=== PATIENT | female | born 1980 | race Caucasian/White ===

== ENCOUNTER 2017-10-20 10:30 | Emergency (ER) | payer OTHER ==
[2017-10-20] MEDS ORDERED: predniSONE TAB* 20 MG PO ONE (10:43)
[2017-10-20] MEDS ORDERED: Albuterol/Ipratropium NEB.SOL* Albuterol 2.5 MG/Ipratropium 0.5 MG 3 ML INH ONE (10:43)
--- OUTSIDE RECORDS SUMMARY | 2017-10-20 10:46 | XMS REPORT ---
:1980 Author Organization Martina Keane MD Care Team Providers Name Role Phone Curly Larissa , [phone] Unavailable Allergies, Adverse Reactions, Alerts metformin Reaction: diarrhea/GI upset 03/02/2017 Bactrim DS Reaction: facial swelling 03/02/2017 Medications Continue:Larissa Rawls MDatorvastatin 20 mg tablet, Take 1 tablet orally Every day 05/20/2017FreeStyle Lite Strips, Administer 1 strip twice a day or as directed SIMS 05/20/17 05/25/2017glimepiride 4 mg tablet, Take 2 tablet orally Every morning 06/02/2017doxycycline hyclate 100 mg capsule, Take 1 capsules orally twice a day for 10 days 06/02/2017FreeStyle Lancets 28 gauge, Take 1 each two times a day or as directed 06/02/2017omeprazole 40 mg capsule,delayed release , Take 1 capsule orally Every day 07/08/2017alogliptin 25 mg tablet, Take 1 tablet orally Every day 07/08/2017hydrOXYzine pamoate 50 mg capsule, Take 1 capsule orally Every 4 hours as needed, Correct dose 50mg NOT 100mg as just sent 07/11/2017mupirocin 2 % topical ointment, Apply 1/2 gram topically twice a day to affected area as needed 07/14/2017valACYclovir 1 gram tablet, Take 1 tablet orally Every day 08/22/2017Discontinued:Larissa Rawls MDhydrOXYzine HCl 50 mg tablet 07/11/2017hydrOXYzine pamoate 100 mg capsule 07/11/2017metFORMIN ER 1 ,000 mg tablet,extended release 24hr 07/20/2017metFORMIN ER 500 mg tablet, extended release 24 hr 08/22/2017Pre-existing:Diflucan 150 mg tablet, Take 1 tablet orally weekly per PP Problems Encounter for general adult medical examination with abnormal findings (Z00.01) 03/02/2017 Type 2 diabetes mellitus without complications (E11.9) 03/02/2017 Nicotine dependence, cigarettes, uncomplicated (F17.210) 03/02/2017 Low back pain (M54.5) 03/02/2017 Gastro-esophageal reflux disease without esophagitis (K21.9) 03/02/2017 Bipolar disorder, unspecified (F31.9) 03/02/2017 Anxiety disorder, unspecified (F41.9) 03/02/2017 Other obesity due to excess calories (E66.09) 03/02/2017 Insomnia, unspecified (G47.00) 03/02/2017 Personal history of Methicillin resistant Staphylococcus aureus infection ( Z86.14) 03/02/2017 Alcohol abuse with intoxication, uncomplicated (F10.120) 03/02/2017 Furuncle of head [any part, except face] (L02.821) 05/20/2017 Encounter for immunization (Z23) 07/14/2017 Furuncle of other sites (L02.828) 07/14/2017 Disorder of breast, unspecified (N64.9) 07/14/2017 Resolved: Anal abscess (K61.0) 08/22/2017 Results Advanced Directives: Patient does not wish to complete 03/02/2017 HIV Testing: Offered 03/02/2017 Hepatitis C Testing: Not Indicated due to age 503/02/2017 SODIUM: 134 MMOL/L 05/20/2017 Potassium: 4.6 MMOL/L 05/20/2017 CHLORIDE: 98 MMOL/L 05/20/2017 CO2 Carbon Dioxide: 25 MMOL/L 05/20/2017 Anion Gap: 11 MMOL/L 05/20/2017 Glucose: 433 MG/DL 05/20/2017 Blood Urea Nitrogen: 9 MG/DL 05/20/2017 Creatinine: 0.75 MG/DL 05/20/2017 BUN/CREATININE RATIO: 12 05/20/2017 CALCIUM: 9.6 MG/DL 05/20/2017 eGFR NON-: 87 05/20/2017 eGFR : 111.8 05/20/2017 Triglycerides: 218 MG/DL 05/20/2017 Cholesterol: 158 MG/DL 05/20/2017 HDL Cholesterol: 27.5 MG/DL 05/20/2017 LDL Cholesterol: 87 MG/DL 05/20/2017 Hemoglobin A1C: 11 % 05/20/2017 SODIUM: 136 MMOL/L 06/02/2017 Potassium: 3.6 MMOL/L 06/02/2017 CHLORIDE: 102 MMOL/L 06/02/2017 CO2 Carbon Dioxide: 26 MMOL/L 06/02/2017 Anion Gap: 8 MMOL/L 06/02/2017 Glucose: 286 MG/DL 06/02/2017 Blood Urea Nitrogen: 4 MG/DL 06/02/2017 Creatinine: 0.65 MG/DL 06/02/2017 BUN/CREATININE RATIO: 6.2 06/02/2017 CALCIUM: 8.8 MG/DL 06/02/2017 eGFR NON-: 102.6 06/02/2017 eGFR : 131.9 06/02/2017 C Reactive Protein: 27.74 MG/L 06/02/2017 Message Time: 07/15/2017 1:49pm 07/15/2017 Response Time: 07/15/2017 0330pm 07/15/2017 Message Time: 07/26/2017 5pm 07/26/2017 SODIUM: 135 MMOL/L 08/17/2017 Potassium: 4.3 MMOL/L 08/17/2017 CHLORIDE: 102 MMOL/L 08/17/2017 CO2 Carbon Dioxide: 28 MMOL/L 08/17/2017 Anion Gap: 5 MMOL/L 08/17/2017 Glucose: 228 MG/DL 08/17/2017 Blood Urea Nitrogen: 9 MG/DL 08/17/2017 Creatinine: 0.66 MG/DL 08/17/2017 BUN/CREATININE RATIO: 13.6 08/17/2017 CALCIUM: 8.8 MG/DL 08/17/2017 Total Protein: 6.4 G/DL 08/17/2017 Albumin: 3.8 G/DL 08/17/2017 Globulin: 2.6 G/DL 08/17/2017 Albumin/Globulin Ratio: 1.5 08/17/2017 Total Bilirubin: 0.5 MG/DL 08/17/2017 ALKALINE PHOSPHATASE: 100 U/L 08/17/2017 ALT: 28 U/L 08/17/2017 AST: 9 U/L 08/17/2017 eGFR NON-: 100.8 08/17/2017 eGFR : 129.6 08/17/2017 Hemoglobin A1C: 9.7 % 08/17/2017 Chief Complaint/Reason for Visit Follow up depression perineal abscess, diabetes breast lesions follow up feeling goodwants talk about a1c doing ok Procedures Performed and Ordered Today Current Medications Documented 03/02/2017OV, Est Pat L3 04/08/2017Current Medications Documented 04/08/2017 other unhealthy behavior 04/08/2017s no current behavior issues 04/08/2017Ha communication needs, ie cognitive, hearing or vision issue 04/08/2017OV, Est Pat L3 05/20/2017Venipuncture BMP,LIPID,HA1C 05/20Current Medications Documented 05/20/2017No Unhealthy Behavior, except smoking and/or sedentary 05/20/2017 behavior issues 05/20/2017 communication needs, ie cognitive, hearing or vision issue 05/20/2017Influenza, p -free 0.5 (>=3 yrs) (PFF) 08/08/2010OV, Est Pat L4 06/02/2017Venipuncture CRP, BMP 06/02/2017Current Medications Documented 06/02/2017Diabetic Foot Exam other unhealthy behavior 06/02/2017s behavior issues 06/02/2017Has communication needs, ie cognitive, hearing or vision issue 06/02/2017Current Medications Documented 06/14/2017s other unhealthy behavior 06/14/2017s behavior issues 06/14/2017s communication needs, ie cognitive, hearing or vision issue 06/14/2017OV, Est Pat L3 07/14/2017Current Medications Documented Has other unhealthy behavior 07/14/2017Has behavior issues 07/14/2017No communication needs 07/14/2017Venipuncture HA1C, CMP 08/17/2017OV, Est Pat L3 Current Medications Documented 08/22/2017s other unhealthy behavior Has behavior issues 08/22/2017No communication needs 08/22/2017Eye Exam Myopia, bilateral; reg astigmatism bilat; 06/21/2017OV, Est Pat L3 09/27/2017Current Medications Documented 09/27/2017Has behavior issues 2016No communication needs 09/27/2017No Unhealthy Behavior, except smoking or sedentary 09/27/2017PE Age 18-39 New pt 03/02/2017OV, Est Pat L3 06/14/2017 Lab: PAP Negative for lesion or malignancy, HPV negative; PPH 08/04/2015 *CBC - CBC w/electronic differential 06/02/2017 Test: Diabetic eye exam Pt declined diabetic exam,will f/u later this year 06/21/2017 Pneumovax 07/14/2017 Immunization: Fluzone Quadrivalent 3 yrs and older Rec'd at [facility] 07/14/2017 Influenza 0.5 (>=3 Yrs) [facility] 07/09/2017 Vital signs Temp: Pulse: Resp: BP: Ht: Wt: BMI: Pain: 98.1F 68/Min 20/Min 150/88 5ft, 4in 210lbs 33.974 06/0909/27/2017 09/27/2017 09/27/2017 mmHg 07/14/2017 07/14/2017201609/27/2017 7 Immunizations Fluzone Quadrivalent 3 yrs and older 07/14/2017 Pneumovax 07/14/2017 Influenza 0.5 (>=3 Yrs) 07/09/2017 Immunization Pneumococcal 07/14/2017 Smoking Status: Current every day smoker. Reason for Referral [facility], [address] [place] [id number] folliculitis/Breast Lesions Functional Status Plan of Treatment Appointments Thursday, March 02, 2017, Scheduled: 2:00 PM, Sarahi Pinzon NP Saturday, April 08, 2017, 1:00 PM, Larissa Rawls MD Saturday, May 20, 2017, 1:00 PM, Larissa Rawls MD May, 1:30 PM, Larissa Rawls MD Wednesday, June 14, 2017, 2:30 PM, Sarahi Pinzon NP July, 3:00 PM, Larissa Rawls MD Thursday, August 17, 2017, 3:00 PM, Tuesday, August 22, 2017, 1:00 PM, Larissa Rawls MD Wednesday, September 27, 2017, 1:30 PM, Larissa Rawls MD Tuesday, November 14, 2017, 2:30 PM, October, 2:30 PM, Larissa Rawls MD Payers Insurance Policy Type Policy ID Relation Subscriber Expiration [facility] [id number] Self Melissa Palmer Medicaid Health Plan Program [facility] [id number] Self Melissa Palmer Medicaid Health Plan Program Encounters CPT4 Code Encounter Date [id number] Established 09/27/2017 1:51:20 PM Patient Level 3 [id number] Established 08/22/2017 1:23:50 PM Patient Level 3 23113 Established 07/14/2017 3:04:50 PM Patient Level 3 [id number] Established 06/14/2017 2:49:35 PM Patient Level 3 20837 Established 06/02/2017 1:39:43 PM Patient Level 4 18835 Established 05/20/2017 1:16:27 PM Patient Level 3 [id number] Established 04/08/2017 1:40:01 PM Patient Level 3 43638 Initial 03/02/2017 1:59:48 PM Preventive Med Eval Ages 18-39
[2017-10-20] MEDS ORDERED: Acetaminophen TAB* 325 MG PO ONE (11:57)
--- NOTE | 2017-10-20 12:00 | RAD ---
HISTORY: Cough, chest pain COMPARISONS: September 13, 2012 VIEWS: 4: Frontal dual-energy and lateral views of the chest. FINDINGS: CARDIOMEDIASTINAL SILHOUETTE: The cardiomediastinal silhouette is normal. YAKOV: The yakov are normal. PLEURA: The costophrenic angles are sharp. No pleural abnormalities are noted. LUNG PARENCHYMA: The lungs are clear. ABDOMEN: The upper abdomen is clear. There is no subphrenic gas. BONES AND SOFT TISSUES: No bone or soft tissue abnormalities are noted. OTHER: None. IMPRESSION: NO ACTIVE CARDIOPULMONARY DISEASE.
[2017-10-20 12:04] VITALS: BP 118/70
--- NOTE | 2017-10-20 12:15 | ED ---
Osmin Nunez Gabriel, scribed for Luis Vann MD on 10/20/17 at 1051 . Respiratory - HPI Summary HPI Summary: This patient is a 36 year old F BIBA to [facility] with a chief complaint of a cough since 2 days. The patient rates the pain 8/10 in severity. Patient reports post nasal drip, coughing up blood, chills, clammy, and ALATORRE. Patient reports he has gotten flu and PNA shot recently. Patient is a type 2 diabetic and does not monitor her blood sugar. She also is refusing a test of her blood glucose currently. - History of Current Complaint Chief Complaint: EDChestWallPain Stated Complaint: COUGH Time Seen by Provider: 10/20/17 10:36 Hx Obtained From: Patient Onset/Duration: Lasting Days - 2, Still Present Timing: Constant Initial Severity: Mild Current Severity: Mild Pain Intensity: 8 Character: Cough (Productive) Sputum Color: Red (Blood) Alleviating Factor(s): Nothing - Allergy/Home Medications Allergies/Adverse Reactions: Allergies Allergy/AdvReac Type Severity Reaction Status Date / Time Nitrofurantoin Allergy Intermediate facial Verified 04/28/16 13:49 [From Macrobid] blisters Sulfamethoxazole Allergy Intermediate blisters Verified 04/28/16 13:49 w/Trimethoprim to face [From Bactrim] PMH/Surg Hx/FS Hx/Imm Hx Previously Healthy: No Endocrine/Hematology History: Reports: Hx Diabetes Denies: Hx Anticoagulant Therapy GI History: Reports: Hx Gastroesophageal Reflux Disease History: Reports: Other Problems/Disorders - Genital herpes Psychiatric History: Reports: Hx Anxiety, Hx Depression, Hx Bipolar Disorder, Hx Substance Abuse - Alcoholism, MJ use Denies: Hx Eating Disorder, Hx of Violent Episodes Against Others Infectious Disease History: No Infectious Disease History: Reports: Hx of Known/Suspected MRSA Denies: Traveled Outside the [place] in Last 30 Days - Family History Known Family History: Positive: Diabetes Negative: Hypertension - Social History Alcohol Use: Weekly Alcohol Amount: 1-2 6 packs of 16oz beer Hx Substance Use: Yes - formerly Substance Use Type: Reports: Marijuana Substance Use Comment - Amount & Last Used: states that no longer uses drugs, formerly MJ 1-2 x/month Hx Tobacco Use: Yes Smoking Status (MU): Heavy Every Day Tobacco Smoker Type: Cigarettes Review of Systems Positive: Other - "clammy" Positive: Other - post nasal drip Positive: Cough - with blood Positive: Headache All Other Systems Reviewed And Are Negative: Yes Physical Exam - Summary Physical Exam Summary: Appearance: Well appearing, no pain distress Skin: warm, dry, reflects adequate perfusion Head/face: normal Eyes: EOMI, WARREN ENT: Posterior pharyngeal mucus Neck: supple, non-tender Respiratory: Occasionally wheeze, dry harsh cough Cardiovascular: RRR, pulses symmetrical Abdomen: non-tender, soft Bowel: present Musculoskeletal: normal, strength/ROM intact Neuro: normal, sensory motor intact, A&Ox Triage Information Reviewed: Yes Vital Signs On Initial Exam: Initial Vitals Temp Pulse Resp BP Pulse Ox 98.7 F 97 22 133/76 96 10/20/17 10:34 10/20/17 10:34 10/20/17 10:34 10/20/17 10:34 10/20/17 10:34 Vital Signs Reviewed: Yes - Kallie Coma Scale Coma Scale Total: 15 Diagnostics - Vital Signs Vital Signs Temp Pulse Resp BP Pulse Ox 10/20/17 10:34 98.7 F 97 22 133/76 96 - Laboratory Lab Statement: Any lab studies that have been ordered have been reviewed, and results considered in the medical decision making process. - Radiology CXR Radiology Interpretation Completed By: Radiologist - NO ACTIVE CARDIOPULMONARY DISEASE. ED physician has reviewed this radiology report. Re-Evaluation - Re-Evaluation First Eval Change: Improved - with neb Disposition - Course Course Of Treatment: hx of poorly controlled dm. Possible early COPD --- definitely complicated bronchitis with tobacco abuse. Pt insisted on antibiotic. She refused blood sugar testing. Known A1c of 11+. Zpak, albuterol and sx control. Decreased cough with neb. - Diagnoses Provider Diagnoses: Complicated bronchitis, Tobacco use Discharge - Discharge Plan Condition: Good Disposition: HOME Prescriptions: Albuterol HFA INHALER* [Ventolin HFA Inhaler*] 2 puff INH Q4H PRN #1 mdi PRN Reason: Cough Azithromycin TAB* [Zithromax TAB (Z-DARY) 250 mg #6 tabs] 2 tab PO .TODAY, THEN 1 DAILY #1 dary Benzonatate [TESSALON 200 MG CAP] 200 mg PO TID PRN #20 cap PRN Reason: Cough Pseudoephedrine-Guaifenesin [Mucinex D 60-600 mg] 1 tab PO BID PRN #20 tab PRN Reason: Congestion Patient Education Materials: Acute Bronchitis (ED) Referrals: Larissa Rawls MD [Primary Care Provider] - Additional Instructions: Return with fever, vomiting, trouble breathing, worse or other concerns as discussed. Blood sugar will rise with dose of steroid. See your doctor as soon as possible. Limit carbohydrates and keep sugars well controlled. The documentation as recorded by the Osmin vered Gabriel accurately reflects the service I personally performed and the decisions made by me, Luis Vann MD.
== END 2017-10-20 12:10 | disposition home or self-care (01) ==
LOC: ED 10:30
DX: J40 Bronchitis, not specified as acute or chronic (principal); F17.210 Nicotine dependence, cigarettes, uncomplicated; F32.9 Major depressive disorder, single episode, unspecified; E11.8 Type 2 diabetes mellitus with unspecified complications; K21.9 Gastro-esophageal reflux disease without esophagitis
CPT/HCPCS: 71020; 94640; 99282; A9270-GY; J7512

== ENCOUNTER 2018-01-14 18:46 | Emergency (ER) | payer OTHER ==
[2018-01-14 19:21] VITALS: BP 144/85
[2018-01-14] MEDS ORDERED: DOXYcycline CAP(*) 100 MG PO ONE (19:37)
--- NOTE | 2018-01-14 19:48 | UC ---
Skin Complaint HPI - HPI Summary HPI Summary: 37 yo WF h/o DM and MRSA skin infection c/o recurrent skin infection on right side of neck x few days, now tender to touch with central purulent area - History of Current Complaint Chief Complaint: UCGeneralIllness Time Seen by Provider: 01/14/18 19:29 Stated Complaint: INFECTION NECK Hx Obtained From: Patient Onset/Duration: Sudden Onset Skin Exposure Onset/Duration: Days Ago Onset Severity: Moderate Pain Intensity: 7 - Allergy/Home Medications Allergies/Adverse Reactions: Allergies Allergy/AdvReac Type Severity Reaction Status Date / Time nitrofurantoin Allergy FACIAL Verified 01/14/18 19:08 [From Macrobid] BLISTERS Sulfa (Sulfonamide Allergy Blisters Verified 01/14/18 19:08 Antibiotics) sulfamethoxazole Allergy FACIAL Verified 01/14/18 19:08 [From Bactrim] BLISTERS trimethoprim [From Bactrim] Allergy FACIAL Verified 01/14/18 19:08 BLISTERS Home Medications: Home Medications Alogliptin Benzoate [Alogliptin] 1 tab DAILY 01/14/18 [History Confirmed ] Fluconazole 100 MG TAB* [Diflucan 100 MG TAB*] 1 tab WEEKLY PRN 01/14/18 [ History Confirmed 01/14/18] glipiZIDE TAB* [Glucotrol TAB*] 1 tab BID 01/14/18 [History Confirmed 01/14/18] Review of Systems Constitutional: Negative Skin: Other - recurrent skin infection Eyes: Negative ENT: Negative Respiratory: Negative Cardiovascular: Negative Gastrointestinal: Negative Genitourinary: Negative Motor: Negative Neurovascular: Negative Musculoskeletal: Negative Neurological: Negative Psychological: Negative All Other Systems Reviewed And Are Negative: Yes PMH/Surg Hx/FS Hx/Imm Hx - Additional Past Medical History Additional PMH: recurrent MRSA skin infections Previously Healthy: Yes Endocrine History: Diabetes Other History Of: Negative For: Anticoagulant Therapy - Surgical History Surgical History: Yes Surgery Procedure, Year, and Place: Cervical cyst removal - Family History Known Family History: Positive: Unknown, Diabetes Negative: Hypertension - Social History Alcohol Use: Occasionally Alcohol Amount: 1-2 6 packs of 16oz beer Substance Use Type: None Substance Use Comment - Amount & Last Used: states that no longer uses drugs, formerly MJ 1-2 x/month Smoking Status (MU): Heavy Every Day Tobacco Smoker Type: Cigarettes Amount Used/How Often: 1/2 PPD Household Exposure Type: Cigarettes Physical Exam Triage Information Reviewed: Yes Appearance: Well-Appearing Vital Signs: Initial Vital Signs Temp 36.4 C 01/14/18 19:15 Pulse 96 01/14/18 19:15 Resp 16 01/14/18 19:15 BP 144/85 01/14/18 19:15 Pulse Ox 98 01/14/18 19:15 Vital Signs Reviewed: Yes Eye Exam: Normal ENT Exam: Normal Dental Exam: Normal Neck exam: Normal Neck: Positive: 1 Respiratory Exam: Normal Cardiovascular Exam: Normal Abdominal Exam: Normal Musculoskeletal Exam: Normal Neurological Exam: Normal Psychological Exam: Normal Skin: Positive: significant lesion(s) - 1x1cm right lower neck caruncle NON- fluctuant with central area of un-broken purulence Course/Dx - Course Course Of Treatment: warm compresses, Peroxide cleansing 2-3 per day, PO Doxy x 10days - Diagnoses Provider Diagnoses: Furuncle. elevated BP in acute illness Discharge - Discharge Plan Condition: Stable Disposition: HOME Prescriptions: DOXYcycline CAP(*) [DOXYcycline 100MG CAP(*)] 100 mg PO BID 10 Days #20 cap Patient Education Materials: MRSA (Methicillin-Resistant Staphylococcus Aureus ) (ED) Referrals: Larissa Rawls MD [Primary Care Provider] - Additional Instructions: apply warm compresses to affected area and let the purulent portion drain on its own
== END 2018-01-14 19:46 | disposition home or self-care (01) ==
LOC: UCCORT 18:46
DX: L02.12 Furuncle of neck (principal); R03.0 Elevated blood-pressure reading, without diagnosis of hypertension; Z86.14 Personal history of Methicillin resistant Staphylococcus aureus infection; E11.9 Type 2 diabetes mellitus without complications; Z79.84 Long term (current) use of oral hypoglycemic drugs; Z88.1 Allergy status to other antibiotic agents; Z88.2 Allergy status to sulfonamides; F17.210 Nicotine dependence, cigarettes, uncomplicated
CPT/HCPCS: 99212; A9270-GY; G0463

== ENCOUNTER 2018-06-25 15:19 | Emergency (ER) | payer OTHER ==
[2018-06-25 16:52] VITALS: BP 133/89
[2018-06-25] MEDS ORDERED: DOXYcycline CAP(*) 100 MG PO ONE (17:21)
--- NOTE | 2018-06-25 17:25 | UC ---
Lower Extremity/Ankle HPI - HPI Summary HPI Summary: 37-year-old female with history of type 2 diabetes presents with redness, swelling, pain in her left great toe over the past several days. States approximately 2-3 weeks ago she had a wedge resection performed for an ingrown toenail of the same toe. She was prescribed a course of Keflex at that time however states she stopped taking this after about 2-3 days due to adverse GI effects. She was seen by her manufacturing advisor in follow-up approximately one week after the procedure with and had no complications at that time. She has noticed a small amount of drainage coming from the site of the resection. Denies fevers, chills, numbness or tingling. - History of Current Complaint Chief Complaint: Pastora Stated Complaint: RIGHT GREAT TOE SKIN CONCERN Time Seen by Provider: 06/25/18 17:01 Hx Obtained From: Patient Hx Last Menstrual Period: ON DEPO SINCE AGE 17, DOES NOT HAVE PERIODS ?: No Onset/Duration: Gradual Onset, Lasting Days Severity Initially: Mild Severity Currently: Moderate Pain Intensity: 7 Aggravating Factor(s): Ambulation Alleviating Factor(s): Nothing Able to Bear Weight: Yes - Allergies/Home Medications Allergies/Adverse Reactions: Allergies Allergy/AdvReac Type Severity Reaction Status Date / Time Sulfa (Sulfonamide Allergy Mild Blisters Verified 06/25/18 16:37 Antibiotics) nitrofurantoin Allergy FACIAL Verified 04/19/18 17:33 [From Macrobid] BLISTERS sulfamethoxazole Allergy FACIAL Verified 04/19/18 17:33 [From Bactrim] BLISTERS trimethoprim [From Bactrim] Allergy FACIAL Verified 04/19/18 17:33 BLISTERS Home Medications: Home Medications Atorvastatin* [Lipitor*] 20 mg PO DAILY 06/25/18 [History Confirmed 06/25/18] hydrOXYzine pamoate [Vistaril] 7 cap PO BEDTIME 06/25/18 [History Confirmed ] PMH/Surg Hx/FS Hx/Imm Hx - Additional Past Medical History Additional PMH: MRSA Endocrine History: Diabetes Psychological History: Other Other Psychological History: autism Other History Of: Negative For: Anticoagulant Therapy - Surgical History Surgical History: Yes Surgery Procedure, Year, and Place: Cervical cyst removal - Family History Known Family History: Positive: Diabetes - Social History Occupation: Disabled Lives: Alone Alcohol Use: Occasionally Alcohol Amount: TWICE A MONTH Substance Use Type: None Substance Use Comment - Amount & Last Used: states that no longer uses drugs, formerly MJ 1-2 x/month Smoking Status (MU): Heavy Every Day Tobacco Smoker Type: Cigarettes Amount Used/How Often: 1/2 PPD Household Exposure Type: Cigarettes Review of Systems Constitutional: Negative Skin: Other - See history of present illness. Motor: Negative Neurovascular: Negative Musculoskeletal: Negative Is Patient Immunocompromised?: No All Other Systems Reviewed And Are Negative: Yes Physical Exam Triage Information Reviewed: Yes Appearance: No Pain Distress, Obese Vital Signs: Initial Vital Signs Temp 97.7 F 06/25/18 16:43 Pulse 92 06/25/18 16:43 Resp 18 06/25/18 16:43 BP 133/89 06/25/18 16:43 Pulse Ox 97 06/25/18 16:43 Vital Signs Reviewed: Yes Respiratory: Positive: No respiratory distress Cardiovascular: Positive: Pulses Normal, Brisk Capillary Refill Musculoskeletal Exam: Normal Neurological: Positive: Alert, Other: - Sensation intact Skin: Positive: Other - There is evidence of a wedge resection to the left great toenail. There is some crusting noted over the surgical site. There is erythema, tenderness, and mild edema to the tip and dorsal aspect of the left great toe. No fluctuance, induration, or drainage noted. Lower Extremity Course/Dx - Course Course Of Treatment: 37-year-old female presents with left great toe redness, swelling, and pain over past several days. She is 2-3 weeks post wedge resection. She states that she was prescribed a course of Keflex following the wedge resection however stopped after only 2-3 days of antibiotics due to GI adverse effects. States she had follow-up with her manufacturing advisor about a week after the procedure and no complications at that time. Patient reports history of MRSA and states that she has had bad GI adverse effects with most antibiotics she has been prescribed. She also states history of autism which makes it difficult for her to be compliant with her antibiotic regimens. She does appear to have a cellulitis present in this toe without evidence of an abscess. Based on her history of MRSA and reported difficulty with remembering to take medications multiple times throughout the day and will treat her with a course of doxycycline twice a day 10 days. She is to call her manufacturing advisor tomorrow to see if she can get a reevaluation earlier than her scheduled July appointment. If unable to get in with her manufacturing advisor she is to follow- up with her primary care provider in 7 days for wound recheck. - Differential Dx/Diagnosis Provider Diagnoses: cellulitis left great toe Discharge - Sign-Out/Discharge Documenting (check all that apply): Patient Departure All imaging exams completed and their final reports reviewed: No Studies - Discharge Plan Condition: Stable Disposition: HOME Prescriptions: Doxycycline Hyclate 100 mg PO Q12HR #12 tablet Patient Education Materials: Cellulitis (ED) Referrals: Larissa Rawls MD [Primary Care Provider] - 7 Days (If unable to schedule appointment with your manufacturing advisor.) Additional Instructions: Start doxycycline 1 cap every 12 hours for 7 days. We have sent you home with your first 2 doses and I have sent a prescription to the pharmacy for the remainder of the course. Be sure to take then entire course of antibiotic even if you are feeling better. Doxycycline may cause upset stomach. You may take it with a small amount of food but should avoid taking it with any dairy products as this can prevent the absorption of the antibiotic. Soak your foot at least twice daily in warm water and Espom salt solution. Call your manufacturing advisor tomorrow to see if you can follow up sooner than July to have the toe rechecked. If you cannot get in with your manufacturing advisor you should follow up with your primary care provider within 7 days for recheck. Seek immediate medical attention in the emergency room if you develop fever greater than 100.5 F, have increased pain, redness that continues to spread, or any worsening of symptoms. - Billing Disposition and Condition Condition: STABLE Disposition: Home
== END 2018-06-25 17:40 | disposition home or self-care (01) ==
LOC: UCCORT 15:19
DX: L03.032 Cellulitis of left toe (principal); E11.9 Type 2 diabetes mellitus without complications; F17.210 Nicotine dependence, cigarettes, uncomplicated; Z86.14 Personal history of Methicillin resistant Staphylococcus aureus infection; Z88.3 Allergy status to other anti-infective agents; Z88.2 Allergy status to sulfonamides
CPT/HCPCS: 99212; A9270-GY; G0463

== ENCOUNTER 2018-10-24 18:33 | Emergency (ER) | payer OTHER ==
[2018-10-24] MEDS ORDERED: Lidocaine 2.5%/Prilocain 2.5%* 5 GM TUBE TOPICAL ONE (19:16)
--- OUTSIDE RECORDS SUMMARY | 2018-10-24 19:34 | XMS REPORT | Continuity of Care Document ---
:1980 Author Organization [facility] Address [address] [place], [place] [id number] Phone Care Team Providers Name Role Phone Michaela Garcia NP Unavailable Unavailable [facility], NURSE OR MA Unavailable Unavailable Allergies, Adverse Reactions, Alerts Substance Reaction Status trimethoprim Active sulfamethoxazole Active NITROFURANTOIN MACROCRYSTALLINE BLISTERS Active nitrofurantoin BLISTERS Active Sulfa (Sulfonamide Antibiotics) Unknown Active Medications Medication Instructions Dosage Effective Dates Status Comments (start - stop) Depo-Provera 150 IM Q 11-13 weeks - Active mg/mL intramuscular suspension PRILOSEC (unknown Not Available - Active strength) HYDROXYZINE HCL Not Available - Active (unknown strength) ACYCLOVIR (unknown Not Available - Active strength) ATORVASTATIN CALCIUM Not Available - Active (unknown strength) ALOGLIPTIN (unknown take 1 tablet by Not Available - Active strength) oral route every day GLYBURIDE (unknown take 1 tablet by Not Available - Active strength) oral route every day before breakfast Problems Condition Effective Dates Clinical Status Comments (start - stop) Encounter for surveillance of injectable contraceptive Encounter for surveillance of injectable contraceptive Human immunodeficiency virus [HIV] counseling Encounter for screening for human immunodeficiency virus Encounter for surveillance of injectable contraceptive Frequency of micturition Urgency of urination Encntr screen for infections w sexl mode of transmiss Encntr screen for infections w sexl mode of transmiss Tinea cruris Encounter for surveillance of injectable contraceptive Encounter for surveillance of injectable contraceptive Encounter for surveillance of injectable contraceptive Human immunodeficiency - virus [HIV] counseling Encounter for surveillance of injectable contraceptive Encounter for screening for - human immunodeficiency virus Human immunodeficiency - virus [HIV] counseling Encounter for surveillance of injectable contraceptive Encntr screen for infections w sexl mode of transmiss Human immunodeficiency - virus [HIV] counseling Encounter for screening for - human immunodeficiency virus Encntr screen for infections w sexl mode of transmiss Encounter for ot general cnsl and advice on contraception Candidiasis of vulva and vagina Patient's noncompliance w ot medical treatment and regimen Encounter for surveillance of injectable contraceptive Encounter for surveillance of injectable contraceptive Unspecified abdominal pain Candidiasis of vulva and vagina Encounter for surveillance of injectable contraceptive Encounter for test, result negative Candidiasis of vulva and vagina Encounter for ot general cnsl and advice on contraception Rash and other nonspecific skin eruption Frequency of micturition Noninflammatory disorder of vagina, unspecified Encounter for surveillance of injectable contraceptive Encntr screen for infections w sexl mode of transmiss Encounter for surveillance of injectable contraceptive Encounter for surveillance of injectable contraceptive Personal history of ot diseases of the female genital tract Herpesviral infection of urogenital system, unspecified Obesity, unspecified Tobacco use Encounter for surveillance of injectable contraceptive Encounter for test, result negative Encounter for test, result negative Candidiasis of vulva and vagina Encntr screen for infections w sexl mode of transmiss Encounter for surveillance of injectable contraceptive Candidiasis of vulva and vagina Candidiasis of vulva and vagina Encounter for ot general cnsl and advice on contraception Encounter for surveillance of injectable contraceptive Human immunodeficiency virus [HIV] counseling Encounter for screening for human immunodeficiency virus Candidiasis of vulva and vagina Anogenital (venereal) warts Frequency of micturition Candidiasis of vulva and vagina Anogenital (venereal) warts Anogenital (venereal) warts Candidiasis of vulva and vagina Ot cond assoc w female genital organs and menstrual cycle Encounter for surveillance of injectable contraceptive Noninflammatory disorder of vagina, unspecified Anogenital (venereal) warts Candidiasis of vulva and vagina Encounter for test, result negative Frequency of micturition Anogenital (venereal) warts Candidiasis of vulva and vagina Encntr screen for infections w sexl mode of transmiss Encounter for surveillance of injectable contraceptive 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) (routine) w/o abn findings BCM Other, Surveillance STI Screening STI Screening Yeast-vulvovaginal PT, Negative BCM Other, Surveillance Pelvic Pain - NOS Yeast-vulvovaginal BCM Other, Surveillance STI Screening BCM Other, Surveillance Urinary frequency BCM Other, Surveillance Yeast-vulvovaginal HIV, Screening HIV Counseling BCM Other, Surveillance HIV, Screening HIV Counseling BV Yeast-vulvovaginal BCM Other, Surveillance PT, Negative HIV, Screening HIV Counseling HIV, Screening Vaginal Discharge STI Screening HIV, Screening HIV Counseling HIV, Screening Screening for other and unspecified genitourinary conditions STI Screening BV HIV, Screening HIV Counseling BCM Other, Surveillance LABORATORY EXAM 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 LB Recurrent candidiasis of Active See 05/06/17 note. LB vagina Noncompliance with Active See 05/06/17 note. LB medication regimen Type 2 diabetes mellitus Active Poorly controlled NIDDM II. LB Recurrent urinary tract Active Hx drug-resistant infection organisms: Enterococcus (10/1999, 05/2010); ESBL (07/2008, 02/2012); MRSA (12/2016). LB Procedures Procedure Date INJECTION DEPO/CEFTRIAXONE DEPO OTHER Medical Services Contraceptive Slag Wheeler.Svc. Other Slag Wheeler.Svc. STI Results Test Name Date and Time Measure Units Reference Range Abnormal Flag Status Comments No information Advance Directives Directive Yes / No Effective Date File Name No information Encounters Encounter Practice Location Reason(s) Diagnoses Date Provider Providers Description For Visit Copied on Encounter [facility] En[facility] for [facility] Referring [facility] [place] surveillance of Michaela. 620 W Provider: [place] injectable [address], Michaela Finger contraceptive [place], [facility], [address] [place], [address] [address]. [address] [place] tel:[phone] St, [place], St, [place], [address] [place], [address]. [place], tel:[phone], [phone] [facility] tel:[phone] Provider: [id number] NURSE [place] [facility]. [facility] Encounter for Roxie Arrington. Referring [facility] [place] surveillance of [address] Provider: [place] injectable [address], [place], [place], [address], [place], [address] [place], 620 [place]. [address], [place], St, [place], [address]. [place], [id number], [place] tel:[phone] [facility] Human Aug- Raphaelidis Referring [facility] [place] immunodeficienc 0-201 Katy. 620 W Provider: [facility] y virus [HIV] [address], [place] Finger counselingEncou [place], [place], [facility], [facility] [place] [address]. , [address] screening for tel:[phone] [address], St, [place], [place] [address] [place] immunodef[place]ien[place] [address]. [id number], y virus tel:[phone] [place] [phone] tel:[phone] lting [phone] Provider: NURSE [place] [facility]. [facility] [place] surveillance of 7-201 Katy. 620 W Provider: [facility] injectable [address], [place] contraceptive [place], [facility], 620 [address]. , [address] tel:[phone] [address], St, [place], [address] [place], [place], [address]. [id number], tel:[phone] [place] [phone] tel:[phone] [facility] Frequency of Goodreau Referring [facility] [place] micturitionUrge 9-201 Sueane. 620 Provider: [facility] ncy of [address], [place] Finger urinationEncntr [place], [place], [facility], [facility] [place] [address]. [address] infections w tel:[phone] [address], St, [place], [place] [address] [place], [place], [place], transmiss [address]. [id number], tel:[phone] [place] [phone] tel:[phone] [facility] Encntr screen February- Raphaelmary anne Referring [facility] [place] for infections 1-201 Katy. 620 W Provider: [place] w sexl mode of [address], [place] F[place] transmissTinea [place], Raphaelidis [place], 620 cruris [address]. , [address] tel:[phone], St, [place], [address] [place], [address]. [id number], tel:+[phone] [place] [phone] tel:[phone] [facility] Encounter for Roxie Arrington. Referring [facility] [place] surveillance of [address] Provider: [place] injectable [address], [place], [place], [address], [place], [address] [place], 620 [place]. [address], [place], St, [place], [address].Consu [id number], lting [place] Provider: tel:[phone] [place] [address]275 [facility]. [facility] Encounter for Dec-0 Roxie Arrington. Referring [facility] [place] surveillance of [address] Provider: Southern injectable [address], [place], [place], [address], [place], 620 [facility], [address] [place]. [address], [place], St, [place], [address].Consu [id number], lting [place] Provider: tel:[phone] [place] [id number] [facility]. [facility] Encounter for Sep- Kormaricellum Referring [facility] [place] surveillance of Korin. 620 W Provider: [place] injectable [address], Korin Finger contraceptive [place], Kornblum M, [facility], 620 [address]. [address] tel:+[phone], , [place], [address] [place], [address]. [id number], tel:[phone] [place] [phone] tel:[phone] lting [phone] Provider: NURSE [place] [facility]. [facility] Human Jul- Roxie Arrington. Referring [facility] [place] immunodeficienc 0- [address] Provider: [facility] y virus [HIV] 7 St, [place], [place], [address], [place], [address] [place], 620 nter for [place]. [address] [place] [address] surveillance of St, [place], St, [place], [place], contraceptive[place] [address].Consu [id number], counter for lting [place] screening for Provider: tel:[phone] [place] [id number] immunodeficienc PPS[facility]. y virus Planned [facility] Human Dani Miranda. Referring [facility] [place] immunodeficienc [address] Provider: [facility] y virus [HIV] 7 St, [place], [place], [address]. Angella Boone, 620 nter for tel:[phone] [place] [address], St, [place], injectable [place], contraceptive [address]. [id number], tel:[phone] [place] [phone] tel:[phone] [facility] Encntr screen Apr- Roxie Arrington. Consulting [facility] [place] for infections [address] Provider: [facility] w sexl mode of 7 St, [place], [place], [address], [facility]. [facility], [address], [place], [place], [id number], [place] tel:[phone] [facility] Human Borglum [facility] [place] immunodeficienc Mohini. 620 Southern y virus [HIV] [address], Finger counselingEncou [place], [place], [facility], 620 [place] [address], [place]. [place] [address] screening for tel:[phone] St, [place], [place] [address] [place], immunodeficienc [id number], y virusEncntr [place] screen for tel:[phone] infections w [phone] sexl mode of transmissEncoun ter for oth general cnsl and advice on contraceptionCa ndidiasis of vulva and vaginaPatient's noncompliance w oth medical treatment and regimen Planned [facility] Encounter for Peng-0 Cristoferidis Referring [facility] surveillance of 2 Katy. [address] W Provider: [facility] injectable [address], [place] contrace[place], Angella Boone, 620 [address]. [address] tel:+[phone], St, [place], [address] [place], [address]. [id number], tel:+[phone] [place] [phone] tel:[phone] [facility] Encounter for Dec-2 White Nury. Referring [facility] [place] surveillance of [address] Provider: [place] injectable [address], [place], [place], [address], Angella Boone, 620 [place]. [address], St, [place], [place], [address]. [id number], tel:[phone] [place] [phone] tel:[phone] lting [phone] Provider: NURSE [place] [facility]. [facility] Unspecified Dec-1 Raphaelidis [facility] [place] abdominal 7- Katy. 620 W Southern painCandidiasis [address], [place] of vulva and [place], [place], [facility], 620 vagina [address]. [address] tel:[phone] , [place], [address] [place], [id number], [place] tel:[phone] [facility] Encounter for Borglum Referring [facility] [place] surveillance of Mohini. 620 Provider: [place] injectable [address], [place] Finger contraceptiveEn [place], [place], Lori Anaya [facility], 620 [place] [address], [place]. [address] test, tel:[phone], St, [place], result negative [address] [place], [place], [address]. [id number], tel:[phone] [place] [phone] tel:[phone] lting [phone] Provider: NURSE [place] [facility]. [facility] Candidiasis of Dec- Guggino [facility] [place] vulva and Brittany. Southern vaginaEncounter 6 [address] Finger for oth general St, [place], [facility], 620 [place], [address], [address] on [place]. St, [place], contraceptionRa tel:[phone] [place], sh and other [id number], nonspecific [place] skin eruption tel:[phone] [facility] Frequency of Nov-2 White Nury. [facility] [place] micturitionNoni [address] Southern nflammatory [address], [place], [place], [address], [facility], 620 vagina, [place]. [address]co [address], [place], unter for [place], surveillance of [id number], injectable [place] contraceptiveEn tel:[phone] cntr screen for [phone] infections w sexl mode of transmiss Planned [facility] Encounter for Aug-0 Borglum Referring [facility] [place] surveillance of Mohini. Provider: [facility] injectable [address], [place] contraceptive [place], Angella Boone, [facility] [address], [place]. [address] tel:[phone], St, [place], [address] [place], [place], [address]. [id number], tel:[phone] [place] [phone] tel:[phone] lting [phone] Provider: NURSE [place] [facility]. [facility] Encounter for Borglum [facility] [place] surveillance of Mohini. [facility] injectable [address], Finger contraceptivePe [place], [facility], 620 rsonal history [address], [place]. [place] of oth diseases tel:[phone] St, [place], of the female [address] [place], genital [id number], tractHerpesvira [place] l infection of tel:[phone] urogenital 729755 system, unspecifiedObes ity, unspecifiedToba charge account identification clerk use Planned [facility] Encounter for Borglum Referring [facility] [place] surveillance of Mohini. Provider: [facility] injectable [address], [place] contrace[place], Angella Boone, 620 [address], [place]. [address] tel:[phone], St, [place], [address] [place], [place], [address]. [id number], tel:[phone] [place] 567[address]Zseyx tel:[phone] lting [phone] Provider: NURSE [place] [facility]. [facility] Encounter for Borglum [facility]ing [facility] test, Mohini. Provider: [facility] result negative [address], NURSE [place] MADY [place], [facility]. [place] [address], [place]. [place] tel:[phone] St, [place], [address] [place], [id number], [place] tel:[phone] [facility] Encounter for Roxie Arrington. Consulting [facility] [place] test, 2- [address] Provider: [facility] result negative 6 , [place], [address], PPS[facility]. [facility], [address], [place], [place], [id number], [place] tel:[phone] [facility] Candidiasis of Peng-2 Goodre [facility] [place] vulva and 4201 Sueane. 620 [place] vagina [address], [place], [place], [facility], [facility] [address]. [address] [place] tel:[phone] St, [place], [address] [place], [id number], [place] tel:[phone] [facility] Encntr screen Mar- Roxie Arrington. Referring [facility] [place] for infections 3 [address] Provider: [place] w sexl mode of 6 , [place], [place], [address], Lori R, [facility], [facility] ter for US. [address] W [address] surveillance of [address], [facility], injectable [place], [place], contraceptive [address]. [id number], tel:[phone] [place] [phone] tel:[phone] lting [phone] Provider: NURSE [place] [facility]. [facility] Candidiasis of Peng-0 Goodre [facility] [place] vulva and 6 Sueane. 620 [place] vagina [address], [place], [facility], [facility] [address]. [address] [place] tel:[phone] St, [place], [address] [place], [id number], [place] tel:[phone] [facility] Candidiasis of February- Roxie Arrington. [facility] [place] vulva and 0-201 [address] Southern vaginaEncounter [address] St, [place], [place], [address], [facility], 620 cnsl and advice [place]. [address] on [address], [place], contraceptionEn [place], counter for [id number], surveillance of [place] injectable tel:[phone] contraceptive [phone] Planned [facility] Human February- Roxie Arrington. Consulting [facility] [place] immunodeficienc [address] Provider: [facility] y virus [HIV] 6 St, [place], [place], [address], PPS[facility]. [facility], 620 nter for [place]. [address] [place] screening for St, [place], human [place], immunodeficienc [id number], y virus [place] tel:[phone] [facility] Candidiasis of Mar-3 Ottoson [facility] [place] vulva and Pavel. 620 Southern vaginaAnogenita [address], Finger l (venereal) [place], [place], [facility], 620 warts [address]. [address] [place] tel:[phone] St, [place], [address] [place], [id number], [place] tel:[phone] [facility] Frequency of Dec- Parete [facility] [place] micturitionCand Michaela. 620 W [place] idiasis of [address], Finger vulva and [place], [place], [facility], 620 vaginaAnogenita [address]. [address] [place] l (venereal) tel:[phone] St, [place], warts [address] [place], [id number], [place] tel:[phone] [facility] Anogenital Dani Miranda. [facility] [place] (venereal) [address] Southern wartsCandidiasi 6 St, [place], [place], [address]. [facility], 620 vagina tel:[phone] W [address], [place], [place], [id number], [place] tel:[phone] [facility] Oth cond assoc Dec- Kornblum [facility] [place] w female Korin. 620 W [place] genital organs [address], [place] and menstrual [place], [place], 620 cycle [address]. [address] [place] tel:+[phone] St, [place], [address] [place], [id number], [place] tel:[phone] [facility] Encounter for Lev-2 Kornblum [facility] [place] surveillance of 2- Korin. 620 W [place] injectable [address], Finger contraceptiveNo [place], [facility], 620 ninflammatory [address]. [address] disorder of tel:[phone] St, [place], vagina, [address] [place], unspecified [id number], [place] tel:[phone] [facility]ogenital Sep- [facility] [place] (venereal) 8 Katy. 620 W Southern wartsCandidiasi [address], [place] s of vulva and [place], [place], [facility], [facility] vagina [address]. [place] tel:[phone] St, [place], [address] [place], [id number], [place] tel:[phone] [facility] Encounter for Parete [facility] [place] test, [employer]. 620 W Southern result [address], Finger negativeFrequen [place], [place], [facility], [address] [place] [address]. [address] [place] micturitionAnog tel:[phone] St, [place], enital [address] [place], (venereal) [id number], wartsCandidiasi [place] s of vulva and tel:[phone] vaginaEncntr [phone] screen for infections w sexl mode of transmiss Planned [facility] Encounter for Nov- Eselaya Mason. Referring [facility] surveillance of 3 620 W. Provider: [facility] injectable [address] Isabella Ese [place] contraceptive [place], [place], C, 620 W. [facility], [facility] [address] [place] tel:+[phone] [place], [place], St, [place], [address]. [place], tel:[phone], 512[address]Mracw [place] lting tel:[phone] Provider: [id number] NURSE [place] [facility]. 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 620 W Southern (routine) w/o [address], [place] abn findings [place], [place], [facility], 620 [address]. [address] tel:[phone] St, [place], [address] [place], [id number], [place] tel:[phone] [facility] BCM Other, Sep-0 [facility] Surveillance 2-201 Sherrie. 620 W Provider: Southern [address], Sher[place], [facility], 620 [address]. [address] [place] tel:[phone], St, [place], [address] [place], [place], [address]. [id number], tel:[phone] [place] 836382 tel:[phone] [facility] STI Screening May-0 [facility] 5-201 Hserrie. 620 [address] Southern [address], [place], [place], [facility], 620 [address]. [address] tel:[phone] St, [place], [address] [place], [id number], [place] tel:[phone] [facility] STI Apr- Goodre [facility] ScreeningYeast- 3 Sueane. 620 [place] vulvovaginal [address], [place], [facility], 620 [address]. [address] [place] tel:[phone] St, [place], [address] [place], [id number], [place] tel:[phone] [facility] PT, Negative Peng- Alejandro Referring [facility] 3 Oni. 135 Provider: [facility] [address], Oni [place], [place], [facility], 620 [address], [place]. [address] [place] [place] tel:[phone] St, St, [place], [address] [place], [place], [address]. [id number], tel:[phone] [place] [phone] tel:[phone] lting [phone] Provider: NURSE [place] [facility]. [facility] BCM Other, Jan- [facility] Referring [facility] SurveillancePel 4-201 Sherrie. 620 W Provider: [facility] lorena Pain - [address], Sherrie Finger NOSYeast-vulvov [place], [facility], 620 aginal [address]. [address] W [address] [place] tel:[phone], St, [place], [address] [place], [address]. [id number], tel:[phone] [place] 295153 tel:[phone] [facility] BCM Other, Dani Miranda. Referring [facility] [address] Provider: [facility] Screening [address], [place], [place], [address]. Louise, 620 [facility], 620 tel:[phone] [address], [place], [place], [place], [address]. [place], tel:[phone], 502815 [place] tel:[phone] [facility] BCM Other, Avidano Referring [facility] [place] Surveillance Sherrie. 620 W Provider: [facility] [address], Sherrie [place], [place], [facility], [facility], [facility] [address]. [address] [place] tel:[phone], , [place], [address] [place], [place], [address]. [id number], tel:[phone] [place] 232890Nomwq tel:[phone] lting [phone] Provider: NURSE [place] [facility]. [facility] Urinary Sep-2 Parete [facility]erring [facility] Michaela. 620 W Provider: [facility] Other, [address], Michaela Finger Surveillance [place], Parete, 620 [facility], [facility] [address]. [address] [place] tel:[phone] St, [place], St, [place], [address] [place], [address]. [place], tel:[phone], 037[address] [place] tel:[phone] [facility] Apr-3 Lori [facility] [place] 0- Paola. [address], [place], [facility], [facility] [address]. [address] [place] tel:+[phone] St, [place], [address] [place], [id number], [place] tel:[phone] [facility] Yeast-vulvovagi Apr- Avidano [facility] [place] nal Sherrie. 620 W Southern [address], [place], [place], [facility], 620 [address]. [address] [place] tel:[phone] , [place], [address] [place], [id number], [place] tel:[phone] [facility] HIV, [facility] [place] ScreeningHIV Katy. [address] [place] Counseling [address], [place], [place], [facility], 620 [address]. [address] [place] tel:[phone] , [place], [address] [place], [id number], [place] tel:[phone] [facility] BCM Other, [facility] Referring [facility] Surveillance [place]. [address] Provider: [address], [place], [place], [place], [facility], [address] [address]. [address] tel:[phone] [facility], [facility], [address] [place], [place], [address]. [id number], tel:[phone] [place] 720182Uazoe tel:[phone] [facility] [phone] Provider: [place]SE [place] [facility]. [facility] HIV, [facility] ScreeningHIV Michaela. [address] [facility] [address], [place], [place], [facility], [facility] [address]. [address] tel:[phone] , [place], [address] [place], [id number], [place] tel:[phone] [facility] BVYeast-vulvova February- [place] [facility] ginal [place]. [address], [place], [place], [facility], [facility] [address]. [address] [place] tel:[phone] , [place], [address] [place], [id number], [place] tel:[phone] [facility] BCM Other, [employer] [facility] [facility] Surveillance Michaela. [address]: [place] [address], [place], PPS[facility]. [facility], [facility] [address]. [address] [place] tel:[phone] , [place], [address] [place], [id number], [place] tel:[phone] [facility] PT, Negative May-0 [facility] [place] Sherrie. [address]: [place] [address], [place], [place], PPS[facility]. [facility], [facility] [address]. [address] [place] tel:[phone] St, [place], [address] [place], [id number], [place] tel:[phone] [facility] HIV, May-0 [facility] [place] ScreeningHIV Sherrie. [address] [facility] [address], [place], [facility], [facility] [address]. [address] [place] tel:[phone] St, [place], [address] [place], [id number], [place] tel:[phone] [facility] HIV, Screening Apr-2 [facility] [place] 3 [place]. [address], [place], [facility], [facility] [address]. [address] [place] tel:[phone] St, [place], [address] [place], [id number], [place] tel:[phone] [facility] Vaginal Apr-2 [facility] [place] DischargeSTI 3- [place]. [address], [place], [facility], [facility] [address]. [address] [place] tel:[phone] St, [place], [address] [place], [id number], [place] tel:[phone] [facility] HIV, Apr-0 Louise Ruth. [facility] [place] ScreeningHIV [address] [facility] CounselingHIV, [address], [place], [place], [address]. [place] [address] tel:[phone], [place], [place], [id number], [place] tel:[phone] [facility] Screening for Apr-0 Louise Ruth. [facility] [place] other and [address], [place], [address]. [place] [address] conditionsSTI tel:[phone] [address], [place], [place], [id number], [place] tel:[phone] [facility] HIV, Mar-0 [facility] [place] ScreeningHIV 7- Sherrie. [address] [facility] [address], [place], [place], [facility], [facility] [address]. [address] [place] tel:[phone] St, [place], [address] [place], [id number], [place] tel:[phone] [facility] BCM Other, Mar-0 [facility] [place] Surveillance Sherrie. [address] Provider: [address], [place], [place], PPS[facility]. [facility], [facility] [address]. [address] [place] tel:[phone] St, [place], [address] [place], [id number], [place] tel:[phone] [facility] Feb-2 [facility] [place] 7 Sherrie. [address] [place] [address], [place], [place], [facility], [facility] [address]. [address] [place] tel:[phone] , [place], [address] [place], [id number], [place] tel:[phone] [facility] LABORATORY EXAM Lev-0 [facility] [place] NOS 6-201 Sherrie. [address] [facility] [address], [facility], [place], [facility], [facility] [address]. [address] [place] tel:[phone] St, [place], [address] [place], [id number], [place] tel:[phone] [facility] LABORATORY EXAM Dec-0 Louise Ruth. [facility] [place] NOS 3-201 [address], [place], [place], [address]. [facility], 620 tel:[phone], [place], [place], [id number], [place] tel:[phone] [facility] LABORATORY EXAM Nov-1 [facility] [place] NOS 3-201 [place]. [address], [place], [facility], [facility] [address]. [address] [place] tel:[phone] St, [place], [address] [place], [id number], [place] tel:[phone] [facility] LABORATORY EXAM Oct-2 [facility] [place] NOS 1-201 [place]rie. [address] , [place], [place], [facility], [address] [address]. [address] [place] tel:[phone] [facility], [address] [place], [id number], [place] tel:[phone] [facility] LABORATORY EXAM Apr-0 Dani Miranda. [facility] [place] NOS 8-201 [address] , [place], [facility], [address]. [place] [address] tel:[phone] [address] [address] , [place], [place], [id number], [place] tel:[phone] [facility] LABORATORY EXAM Peng- [facility] [place] NOS 2-201 [place]. [address] , [facility], [place], [facility], [address] [address]. [address] [place] tel:[phone] [facility], [address] [place], [id number], [place] tel:[phone] Family History Family Member Diagnosis Age At Onset Father No history of Stroke before age 55 Mother No history of Myocardial infarction before age 65 Mother Mental illness Brother No history of Stroke Father No history of Myocardial infarction before age 55 Father No history of Stroke Sister No history of Myocardial infarction Sister No history of Stroke before age 65 Mother No history of Stroke before age 65 Sister No history of Myocardial infarction before age 65 Father No history of Myocardial infarction Brother No history of Myocardial infarction Mother Diabetes mellitus Mother No history of Myocardial infarction Mother No history of Stroke Brother No history of Stroke before age 55 Sister No history of Stroke Grandmother Diabetes mellitus Brother No history of Myocardial infarction before age 55 Immunizations Vaccine Date Status Comments No information Payers Payer name Insurance type Covered libertarian ID Authorization(s) Medicaid MC [id number] Social History Type Description Quantity Date Captured Comments Alcohol Use Details Unknown Caffeine Use Details Unknown Tobacco Use Status Smoking Status Heavy tobacco smoker Sex Female Vital Signs Date / Height Weight BMI Pulse Blood Temperature Respiratory Body Head BMI Pulse Inhaled Time: Rate Pressure Rate Surface Circumference percentile [place] Area No information Chief Complaint And Reason For Visit No information Reason For Referral Reason For Referral No information Plan Of Treatment Date Type Action Status Goal Tobacco cessation counseling completed Goal Tobacco cessation counseling completed Goal Tobacco cessation counseling completed Goal Tobacco cessation counseling completed Goal Tobacco cessation counseling completed Appointment NIRALI LOPEZ [place] History Of Present Illness Encounter Date Complaint History Of Present Illness No information Functional Status Date Functional Assessment No information Medications Administered Medication Instructions Dosage Effective Dates (start - stop) Status Comments No information Instructions Date Instruction Additional Information No information Assessments Type Assessment Date assessment Encounter for surveillance of injectable contraceptive Goals Health Concern Goal Type Priority Status Date No information Medical Equipment Description Device Gile Device Identifier Effective Dates (start - stop ) Status No information Mental Status Date Cognitive Assessment No information Health Concerns Observation Date No information Concern Status Date No information
--- OUTSIDE RECORDS SUMMARY | 2018-10-24 19:34 | XMS REPORT | Continuity of Care Document ---
:1980 Author Organization [facility] Address [address] [place], [place] [id number] Phone Care Team Providers Name Role Phone Darnell ANGEL, Katy Unavailable Unavailable Allergies, Adverse Reactions, Alerts Substance Reaction Status trimethoprim Active sulfamethoxazole Active NITROFURANTOIN MACROCRYSTALLINE BLISTERS Active nitrofurantoin BLISTERS Active Sulfa (Sulfonamide Antibiotics) Unknown Active Medications Medication Instructions Dosage Effective Status Comments Dates (start - stop) Depo-Provera 150 IM Q 11-13 weeks - Active mg/mL intramuscular suspension PRILOSEC (unknown Not Available - Active strength) HYDROXYZINE HCL Not Available - Active (unknown strength) ACYCLOVIR (unknown Not Available - Active strength) ATORVASTATIN Not Available - Active CALCIUM (unknown strength) ALOGLIPTIN (unknown take 1 tablet by Not Available - Active strength) oral route every day Depo-Provera 150 IM Q 11-13 weeks - No Longer mg/mL intramuscular Active suspension GLYBURIDE (unknown take 1 tablet by Not Available - No Longer strength) oral route every Active day before breakfast Problems Condition Effective Dates Clinical Status Comments (start - stop) Encntr for noise tester exam (general) (routine) w/o abn findings Encounter for surveillance of injectable contraceptive Encounter for oth general - cnsl and advice on contraception Encounter for surveillance of injectable contraceptive Encounter [...] w sexl mode of transmiss Encounter for oth general cnsl and advice on contraception Candidiasis [...] surveillance of injectable contraceptive Personal history of oth diseases of the female genital tract Herpesviral [...] (venereal) warts Candidiasis of vulva and vagina Oth cond assoc w female genital organs and menstrual cycle Encounter for surveillance of injectable contraceptive Noninflammatory disorder of vagina, unspecified Anogenital (venereal) warts Candidiasis of vulva and vagina Encounter for test, result negative Frequency of micturition Anogenital (venereal) warts Candidiasis of vulva and vagina Encntr screen for infections w sexl mode of transmiss Encounter for surveillance of injectable contraceptive Encntr for noise tester exam (general) (routine) w/o abn findings BCM [...] 02/2012); MRSA (12/2016). 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 STI Results Test Name Date and Time Measure Units Reference Range Abnormal Flag Status Comments Panel Description: Wet Mount Final Wet Mount 15:44:44 Hyphae/Iris: noBudding yeast: Final noTrich: noClue cells: noWBCs: noAmine/Whiff test: negativepH: 4.0 Advance Directives Directive Yes / No Effective Date File Name No information Encounters Encounter Practice Location Reason(s) Diagnoses Date Provider Providers Description For Visit Copied on Encounter PREV VISIT, [facility] Well Encntr for noise tester Sep- Padminiaelmary anne Referring EST, A[facility] [place] Person exam (general) 1-201 Katy. [address] Provider: 18-39 Southern Visit (routine) w/o [address], Katy Finger (chief abn [place], [place], [facility], [facility] complaint) findingsEncount [id number]. , [address] for tel:[phone], St, [place] [address] [place], [place], [place], injectable [address]. [id number], contraceptiveEn tel:[phone] [place] counter for oth [id number] tel:[phone] general cnsl 239145 and advice on contraception [facility] Encounter for Parete Referring [facility] [place] surveillance of 4-201 Michaela. 620 W Provider: [facility] injectable [address], Michaela Finger contraceptive [place], [place], Parete, [facility] [place], 620 [address]. [address] tel:[phone] St, [place], St, [place], [address] [place], [address]. [place], tel:[phone], [id number] [place] lting tel:[phone] Provider: [id number] [place] [facility] Encounter for White Nury. Referring [facility] [place] surveillance of 5-201 [address] Provider: Southern injectable [address], [place], [place], [address], [place], [facility] [place], 620 [place]. [address], [place], St, [place], [address]. [place], [id number], [place] tel:[phone] [facility] Human Darnell Referring [facility] [place] immunodeficienc 0-201 Katy. 620 W Provider: [facility] y virus [HIV] [address], Katy Finger counselingEncou [place], [place], Raphevaidis [facility], 620 [place] [address]. , [address] screening for tel:[phone], St, [place], human [address] [place], immunodeficienc [address]. [id number], y virus tel:[phone] [place] 727996Qfdsb tel:[phone] lting [phone] Provider: [place]SE [place] [facility] Encounter for Darnell Referring [facility] [place] surveillance of Katy. 620 W Provider: [place] injectable [address], [place] Finger contraceptive [place], [place], [facility] [address], [address]. , [address] tel:[phone], St, [place], [address] [place], [address]. [id number], tel:[phone] [place] 523327 tel:[phone] [facility] Frequency of [facility] Referring [facility] [place] micturitionUrge Sueane. 620 Provider: [facility] ncy of [address], Sueane Finger urinationEncntr [place], [facility], 620 [place] [address]. [address] infections w tel:[phone] [address], St, [place], [place] [address] [place], [place], [place], transmiss [address]. [id number], tel:[phone] [place] [phone] tel:[phone] [facility] Encntr screen [facility] Referring [facility] [place] for infections Katy. 620 W Provider: Southern w sexl mode of [address], [place]y Finger transmissTinea [place], [place], [facility], 620 cruris [address]. , [address] tel:[phone], St, [place], [address] [place], [address]. [id number], tel:[phone] [place] [phone] tel:[phone] [facility] Encounter for White Nury. Referring [facility] [place] surveillance of [address] Provider: Southern injectable [address], [place], [place], [address], White, 620 [facility], 620 [place]. [address], [place], St, [place], [address].Consu [id number], lting [place] Provider: tel:[phone] [place] 698404 [facility]. [facility] Encounter for Mar-0 Roxie Arrington. Referring [facility] [place] surveillance of [address] Provider: Southern injectable [address], [place], [place], [address], White, 620 [place], 620 [place]. [address], [place], St, [place], [address].Consu [id number], lting [place] Provider: tel:[phone] [place] 6[address]69 [facility]. [facility] Encounter for Dec-2 Menalum Referring [facility] [place] surveillance of Korin. 620 W Provider: [place] injectable [address], Korin Finger contraceptive [place], [place], Kornblum M, [facility], 620 [address]. [address] tel:[phone] [address], St, [place], [address] [place], [address]. [id number], tel:[phone] [place] [phone] tel:[phone] lting [phone] Provider: [place]SE [place] [facility]. [facility] Human Oct-2 Roxie Arrington. Referring [facility] [place] immunodeficienc 0- [address] Provider: [facility] y virus [HIV] 7 St, [place], [place], [address], White, 620 [facility], 620 nter for [place]. W [address] surveillance of St, [place], St, [place], [place], contraceptiveEn [address].Consu [id number], counter for lting [place] screening for Provider: tel:[phone] [place] [address]653 immunodeficienc [facility]. y virus [facility] Human May- Dani Miranda. Referring [facility] [place] immunodeficienc 1- [address] Provider: [facility] y virus [HIV] 7 St, [place], [place], [address]. Lori Anaya, [facility], 620 nter for tel:[phone] [place] [place] [address] [address], St, [place], injectable [place], [place] [address]. [id number], tel:[phone] [place] [phone] tel:[phone] [facility] Encntr screen Memo-2 Roxie Arrington. [facility] for infections 6-201 [address] Provider: [facility] w sexl mode of [address], [place], [place], [address], [facility]. [facility], 620 [place]. [address], [place], [place], [id number], [place] tel:[phone] [facility] Human Apr-0 Borglum [facility] [place] immunodeficienc 7-201 Mohini. 620 [place] y virus [HIV] [address], Finger counselingEncou [place], [place], [facility], 620 [place] [address], [place]. W [address] screening for tel:[phone] St, [place], human [address] [place], immunodeficienc [id number], y virusEncntr [place] screen for tel:[phone] infections w [phone] sexl mode of transmissEncoun ter for oth general cnsl and advice on contraceptionCa ndidiasis of vulva and vaginaPatient's noncompliance w oth medical treatment and regimen [facility] Encounter for Peng-0 Darnell Referring [facility] surveillance of 2 Katy. 620 W Provider: [facility] injectable [address], [place] Finger contraceptive [place], Angella [place], 620 [address]. [address] tel:[phone] [address], St, [place], [address] [place], [address]. [id number], tel:[phone] US [phone] tel:[phone] [facility] Encounter for Mar-2 Roxie Arrington. Referring [facility] surveillance of 4-201 [address] Provider: [facility] injectable [address], [place], [place], [address], Angella Boone, 620 [place]. [address], St, [place], [place], [address]. [id number], tel:[phone] [place] [phone] tel:[phone] lting [phone] Provider: NURSE [place] [facility]. [facility] Unspecified Mar-1 Raphaelidis [facility] [place] abdominal 7-201 Katy. [address] Southern painCandidiasis [address], Finger of vulva and [place], [place], [place], 620 vagina [address]. W [address] tel:[phone] St, [place], [address] [place], [id number], [place] tel:[phone] [facility] Encounter for Borglum Referring [facility] [place] surveillance of [place]. 620 Provider: [place] injectable [address], [place] Finger contraceptiveEn [place], [place], Lori Anaya [facility], [facility] [place] [address], [place]. [address] W [address] test, tel:[phone], St, [place], result negative [address] [place], [place], [address]. [id number], tel:[phone] [place] [id number] tel:[phone] lting [phone] Provider: NURSE [place] [facility]. [facility] Candidiasis of Sep- Guggino [facility] [place] vulva and Brittany. Southern vaginaEncounter 6 [address] Finger for oth general St, [place], [facility], 620 [place], [address], W [address] on [place]. St, [place], contraceptionRa tel:[phone] [place], [place] and other [id number], nonspecific [place] skin eruption tel:[phone] [facility] Frequency of Nov-2 White Nury. [facility] [place] micturitionNoni [address] Southern nflammatory [address], [place], [place], [address], [facility], 620 vagina, [place]. W [address] unspecifiedEnco [address], [place], unter for [place], surveillance of [id number], injectable [place] contraceptiveEn tel:[phone] cntr screen for [phone] infections w sexl mode of transmiss [facility] Encounter for Nov-0 Borglum Referring [facility] surveillance of Mohini. 620 Provider: [place] injectable [address], [place] Finger contraceptive [place], [place], Angella [place], 620 [address], [place]. [address] tel:[phone], St, [place], [address] [place], [place], [address]. [id number], tel:[phone] [place] [phone] tel:[phone] lting [phone] Provider: NURSE OR MADY [facility]. [facility] Encounter for Borglum [facility] [place] surveillance of Mohini. 620 Southern injectable [address], Finger contraceptivePe [place], [place], [facility], 620 rsonal history [address], [place]. W [address] of oth diseases tel:[phone] St, [place], of the female [address] [place], genital [id number], tractHerpesvira [place] l infection of tel:[phone] urogenital [phone] system, unspecifiedObes ity, unspecifiedToba tobacco sample puller use [facility] Encounter for Borglum Referring [facility] [place] surveillance of [place]. [facility] Provider: Southern injectable [address], [place] Finger contraceptive [place], [place], Lori Anaya [facility], [facility] [address], [place]. [address] tel:[phone] [address], St, [place], [address] [place], [address]. [id number], tel:[phone] [place] [id number] tel:[phone] lting [phone] Provider: NURSE OR MADY [facility]. [facility] Encounter for Borglum Consulting [facility] test, [place]. [facility] Provider: Southern result negative [address], NURSE [place] MADY [place], [facility]. [place] [address], [place]. W [address] tel:+[phone] St, [place], [address] [place], [id number], [place] tel:[phone] [facility] Encounter for White Nury. Consulting [facility] test, [address] Provider: Southern result negative [address], [place], [place], [address], [facility]. [place] [address] [place]. [address], [place], [place], [id number], [place] tel:[phone] [facility] Candidiasis of [facility] vulva and Sueane. 620 Southern vagina [address], Finger [place], [place], [facility], 620 [address]. [address] tel:[phone] St, [place], [address] [place], [id number], [place] tel:[phone] [facility] Encntr screen Mar- Roxie Arrington. Referring [facility] [place] for infections 3- 620 [address] Provider: Southern w sexl mode of 6 St, [place], [place], [address], Lori R, [facility], [address] ter for US. [address] W [address] surveillance of [address], St, [place], injectable [place], contraceptive [address]. [id number], tel:[phone] [place] [phone] tel:[phone] lting [phone] Provider: NURSE [place] [facility]. [facility] Candidiasis of Peng-0 Goodreau [facility] [place] vulva and 6 Sueane. 620 Southern vagina [address], Finger [place], [place], [facility], 620 [address]. [address] tel:[phone] St, [place], [address] [place], [id number], [place] tel:[phone] [facility] Candidiasis of February- Roxie Arrington. [facility] [place] vulva and 0201 [address] Southern vaginaEncounter [address] St, [place], [place], [address], [facility], 620 cnsl and advice [place]. W [address] on [address], [place], contraceptionEn [place], counter for [id number], surveillance of [place] injectable tel:[phone] contraceptive [phone] [facility] Human February- Roxie Arrington. Consulting [facility] [place] immunodeficienc 9- 620 [address] Provider: [facility] y virus [HIV] 6 St, [place], [place], [address], [facility]. [facility], 620 nter for US. W [address] screening for St, [place], human [place], immunodeficienc [id number], y virus [place] tel:[phone] [facility] Candidiasis of Mar-3 Ottoson [facility] [place] vulva and Pavel. 620 Southern vaginaAnogenita [address], Finger l (venereal) [place], [place], 620 warts [address]. [address] tel:+[phone] St, [place], [address] [place], [id number], [place] tel:[phone] [facility] Frequency of Dec- Parete [facility] [place] micturitionCand . 620 W [place] idiasis of [address], [place] vulva and [place], [place], [place], 620 vaginaAnogenita [address]. W [address] l (venereal) tel:[phone] St, [place], warts [address] [place], [id number], [place] tel:[phone] [facility] Anogenital Louise Ruth. [facility] [place] (venereal) [address] Southern wartsCandidiasi 6 St, [place], [place], [address]. [place], 620 vagina tel:[phone] [address], [place], [place], [id number], [place] tel:[phone] [facility] Oth cond assoc Kornblum [facility] [place] w female - Korin. 620 W Southern genital organs [address], [place] and menstrual [place], [place], [place], 620 cycle [address]. W [address] tel:[phone] St, [place], [address] [place], [id number], [place] tel:[phone] [facility] Encounter for Kornblum [facility] [place] surveillance of Korin. 620 W Southern injectable [address], Finger contraceptiveNo [place], [place], 620 ninflammatory [address]. W [address] disorder of tel:[phone] St, [place], vagina, [address] [place], unspecified [id number], [place] tel:[phone] [facility] Anogenital Sep- Raphaelidis [facility] [place] (venereal) Katy. 620 W Southern wartsCandidiasi [address], [place] s of vulva and [place], [place], [place], 620 vagina [address]. W [address] tel:[phone] St, [place], [address] [place], [id number], [place] tel:[phone] [facility] Encounter for Parete [facility] test, Michaela. 620 W Southern result [address], Finger negativeFrequen [place], [facility], 620 [place] [address]. W [address] micturitionAnog tel:[phone] , [place], enital [address] [place], (venereal) [id number], wartsCandidiasi [place] s of vulva and tel:[phone] vaginaEncntr [id number] screen for infections w sexl mode of transmiss [facility] Encounter for Ese Mason. Referring [facility] surveillance of 620 W. Provider: [facility] injectable [address] Isabella Ese Finger contraceptive [place], [place], C, 620 W. [facility], [facility] [address]. [address] [place] tel:[phone] [place], [place], St, [place], [address]. [place], tel:[phone], [id number] [place] lting tel:[phone] Provider: [id number] [place]SE [place] [facility]. [facility] Encntr for noise tester Raphaelidis [facility] exam (general) - Katy. 620 W Southern (routine) w/o [address], [place] abn findings [place], [place], [facility], 620 [address]. [address] tel:+[phone] St, [place], [address] [place], [id number], [place] tel:[phone] [facility] BCM Other, Sep-0 [facility] Referring [facility] Surveillance 2- Sherrie. 620 W Provider: Southern [address], Sherrie [place], [place], [facility], [facility], 620 [address]. [address] tel:[phone] [address], St, [place], [address] [place], [address]. [id number], tel:[phone] [place] [phone] tel:[phone] [facility] STI Screening May- [facility] 5-201 Sherrie. 620 W Southern [address], [place], [place], [facility], 620 [address]. W [address] tel:[phone] St, [place], [address] [place], [id number], [place] tel:[phone] [facility] STI Goodreau [facility] [place] ScreeningYeast- 3 Sueane. 620 Southern vulvovaginal [address], [place], [place], [facility], 620 [address]. [address] tel:[phone] St, [place], [address] [place], [id number], [place] tel:[phone] [facility] PT, Negative Alejandro Referring [facility] [place] Oni. 135 Provider: Southern [address], Oni [place], [place], Alejandro, [facility], 620 [address], [place]. [address] [place] [address] tel:+[phone] St, St, [place], [address] [place], [place], [address]. [id number], tel:+[phone] [place] [id number] tel:[phone] lting [phone] Provider: [place]SE [place] [facility]. [facility] BCM Other, [facility] Sherrie. 620 W Provider: Southern lorena Pain - [address], Sherrie Finger NOSYeast-vulvov [place], [place], [place], [facility], 620 aginal [address]. [address] tel:[phone] [address], St, [place], [address] [place], [address]. [id number], tel:[phone] [place] [id number] tel:[phone] [facility] BCM Other, Dani Miranda. Referring [facility] [place] SurveillanceSTI 620 [address] Provider: Southern Screening [address], [place], [place], [address]. Louise, 620 [facility], 620 tel:[phone] [address], [place], St, [place], [address]. [place], tel:[phone], [id number] [place] tel:[phone] [facility] BCM Other, Dec-0 Avidano Referring [facility] [place] Surveillance 2-201 Sherrie. 620 W Provider: Southern [address], Sherrie [place], [place], [facility], [facility], 620 [address]. [address] tel:[phone] [address], St, [place], [address] [place], [address]. [id number], tel:[phone] [place] [id number] tel:[phone] lting [id number] Provider: NURSE [place] [facility]. [facility] Urinary Sep-2 [facility] [place] frequencyBCM 5- Michaela. [address] Provider: [facility] Other, [address] [place], Michaela [place] [facility], [place], Parete, [address] [place] [address], [phone]. [address] [place] [address] [place] tel:[phone] St, [place], St, [place], [address] [place], [address]. [place], tel:[phone], [phone] [place] tel:[phone] [facility] Memo-3 Lori [facility] [place] 0-201 Paola. [address], [place], [place], [facility], [facility] [address]. [address] [place] tel:[phone] St, [place], [address] [place], [id number], [place] tel:[phone] [facility] Yeast-vulvovagi Apr-2 [facility] [place] nal 3-201 Sherrie. [address], [place], [facility], [phone]. [address] [place] tel:[phone] St, [place], [address] [place], [id number], [place] tel:[phone] [facility] HIV, Apr- Raphaelidis [facility] [place] ScreeningHIV 8 Katy. [address] Counseling [address], [place], [facility], [phone]. [address] [place] tel:[phone] St, [place], [address] [place], [id number], [place] tel:[phone] [facility] BCM Other, Apr- Raphaelidis Referring [facility] [place] Surveillance 8- Katy. [address] Provider: Southern [address], Martina [place], [place], [place], [facility], 620 [address]. [address] [place] tel:[phone] [facility], [facility], [address] [place], [place], [address]. [id number], tel:[phone] [place] [phone] tel:[phone] [facility] [phone] Provider: NURSE [place] [facility]. [facility] HIV, February-2 [facility]te [facility] [place] ScreeningHIV Michaela. [address] Counseling [address], [place], [place], [facility], [facility] [address]. [address] [place] tel:[phone] , [place], [address] [place], [id number], [place] tel:[phone] [facility] BVYeast-vulvova February- [facility] [place] ginal Pavel. [address], [place], [place], [facility], [facility] [address]. [address] [place] tel:[phone] [facility], [address] [place], [id number], [place] tel:[phone] [facility] BCM Other, February- P[facility]te [facility] Surveillance Michaela. [address] Provider: [place] [address] [address], NURSE [place], [place], PPSFL. [facility], [facility] [address]. [address] [place] tel:[phone] [facility], [address] [place], [id number], [place] tel:[phone] [facility] PT, Negative February-0 [facility] Sherrie. [address] Provider: [place] [address] [address], NURSE [place], [place], PPSFL. [facility], [facility] [address]. [address] [place] tel:[phone] , [place], [address] [place], [id number], [place] tel:[phone] [facility] HIV, May-0 [facility] [place] ScreeningIDV Sherrie. [address] Counseling [address], [place], [place], [facility], [facility] [address]. [address] [place] tel:[phone] , [place], [address] [place], [id number], [place] tel:[phone] [facility] HIV, Screening Apr-2 [facility] [place] 3 Katy. [address], [place], [place], [facility], [facility] [address]. [address] [place] tel:[phone] St, [place], [address] [place], [id number], [place] tel:[phone] [facility] Vaginal Apr-2 Rap[facility] [place] DischargeSTI 3- Katy. [address] Screening [address], [place], [facility], [facility] [address]. [address] [place] tel:[phone] St, [place], [address] [place], [id number], [place] tel:[phone] [facility] HIV, Apr-0 Louise Ruth. [facility] [place] ScreeningHIV [address] [place] CounselingHIV, [address] St, [place], [place], [address]. [facility], [facility] tel:[phone] [address] [address], [place], [place], [id number], [place] tel:[phone] [facility] Screening for Apr-0 Louise Ruth. [facility] [place] other and [address] [place] [address] Southern unspecified [address], [place], [place], [address]. [facility], [facility] conditionsSTI tel:[phone] [address] [place] ScreeningBV [address], [place], [place], [id number], [place] tel:[phone] [facility] HIV, Mar-0 [facility] [place] ScreeningHIV Sherrie. [address] Counseling [address], [place], [place], [facility], [facility] [address]. [address] [place] tel:[phone] St, [place], [address] [place], [id number], [place] tel:[phone] [facility] BCM Other, Mar-0 [facility] [place] Surveillance Sherrie. [address] Provider: [place] [address], NURSE [place], PPSFL. [place] [phone]. [address] [place] tel:[phone] St, [place], [address] [place], [id number], [place] tel:[phone] [facility] Dec- [facility] [place] 7-201 Sherrie. [address], [place], [place], [facility], 620 [address]. [address] [place] tel:[phone] St, [place], [address] [place], [id number], [place] tel:[phone] [facility] LABORATORY EXAM Oct-0 [facility] [place] NOS 6-201 Sherrie. [address], [place], [place], [facility], 620 [address]. [address] [place] tel:[phone] St, [place], [address] [place], [id number], [place] tel:[phone] [facility] LABORATORY EXAM Dec-0 Louise Ruth. [facility] [place] NOS 3-201 [address] [place] [address], [place], [place], [address]. [facility], 620 tel:[phone] [address] [place] [address], [place], [place], [id number], [place] tel:[phone] [facility] LABORATORY EXAM Aug- [facility] [place] NOS 3-201 [place]avel. [address], [place], [facility], 620 [address]. [address] [place] tel:[phone] St, [place], [address] [place], [id number], [place] tel:[phone] [facility] LABORATORY EXAM Jul- [facility] [place] NOS 1-201 Sherrie. [address], [place], [facility], 620 [address]. [address] [place] tel:[phone] St, [place], [address] [place], [id number], [place] tel:[phone] [facility] LABORATORY EXAM Apr-0 Louise Ruth. [facility] [place] NOS 8-201 [address] [place] [address], [place], [place], [address]. [facility], 620 tel:[phone] [address] [address], [place], [place], [id number], [place] tel:[phone] [facility] LABORATORY EXAM [facility] [place] NOS 2-201 Pavel. [address], [place], [place], [place], [address]. [address] [place] tel:[phone] St, [place], [address] [place], [id number], tel:[phone] Family History Family Member Diagnosis Age At Onset Father No history of Stroke before age 55 Mother No history of Myocardial infarction before age 65 Mother Mental illness Brother No history of Stroke Father No history of Myocardial infarction before age 55 Mother Alzheimer's disease 73 Father No history of Stroke Sister No history of Myocardial infarction Sister No history of Stroke before age 65 Mother No history of Stroke before age 65 Sister No history of Myocardial infarction before age 65 Father No history of Myocardial infarction Brother No history of Myocardial infarction Mother Diabetes mellitus Mother No history of Myocardial infarction Mother Alive and well Mother No history of Stroke Brother No history of Stroke before age 55 Sister No history of Stroke Grandmother Diabetes mellitus Brother No history of Myocardial infarction before age 55 Immunizations Vaccine Date Status Comments No information Payers Payer name Insurance type Covered republican ID Authorization(s) Medicaid MC [id number] Social History Type Description Quantity Date Captured Comments Alcohol Use Details Unknown Caffeine Use Unknown Details Tobacco Use Status Occasional cigarette smoker Smoking Status Heavy tobacco smoker Smoking Tobacco Use Cigarette: Years Used 21 Cigarette: 10 Cigarettes per day , Pack Year: 10.5 Details Sex Female Vital Signs Date / Height Weight BMI Pulse Blood Temperature Respiratory Body Head BMI Pulse Inhaled Time: Rate Pressure Rate Surface Circumference percentile Ox Ox Area 64.51 180.40 30.4 138/2018 in lbs 8 mm[Hg] 3:12 kg/m PM eter (2) Chief Complaint And Reason For Visit Most recent encounter only, dated '10/20/2018 15:00'. Well Person Visit ( chief complaint) Reason For Referral Reason For Referral No information Plan Of Treatment Date Type Action Status Goal Tobacco cessation counseling completed Goal Tobacco cessation counseling completed Goal Tobacco cessation counseling completed Goal Tobacco cessation counseling completed Goal Tobacco cessation counseling completed History Of Present Illness Encounter Date Complaint History Of Present Illness No information Functional Status Date Functional Assessment No information Medications Administered Medication Instructions Dosage Effective Dates (start - stop) Status Comments No information Instructions Date Instruction Additional Information No information Assessments Type Assessment Date assessment Encntr for noise tester exam (general) (routine) w/o abn findings 2017 assessment Encounter for surveillance of injectable contraceptive assessment Encounter for oth general cnsl and advice on contraception 2017 Goals Health Concern Goal Type Priority Status Date No information Medical Equipment Description Device [place] Device Identifier Effective Dates (start - stop ) Status No information Mental Status Date Cognitive Assessment No information Health Concerns Observation Date No information Concern Status Date No information
--- NOTE | 2018-10-24 19:42 | ED ---
Skin Complaint - HPI Summary HPI Summary: A 37 y/o female accompanied by a friend brought in by ambulance presents to the ED c/o of boil/zit on the right side of the head. Currently, the patient stated that the sore on her head is extremely painful and reaching 9/10 in severity. In the ED course, the patient has a pulse of 108 BPM and blood pressure of 147/ 89. As per triage, "Pt with c/o a sore on the right side of her head for about three days. Chief complaints of a headache, mid-sternal chest pain (pt has GERD) ". According to the patient, she has a history of MRSA. She stated that she has a boil or zit on the right side of her head and she cannot sleep as for the last 3 days it is very painful/pressure. It has become increasing larger over the course of a couple days. No drainage was noted. She stated that the pain has been carrying down her right side of her face to her neck and jaw. She noted that her right eye swelled up this morning. She stated that she thinks it is MRSA because it is recurrent with her and Dr. Milner gave her a sonogram once. Patient is allergic to Sulfa. Patient prefers Doxy antibiotics. Patient consented to incision. - History of Current Complaint Chief Complaint: EDGeneral Time Seen by Provider: 10/24/18 19:01 Stated Complaint: CHEST PAIN Hx Obtained From: Patient Hx Last Menstrual Period: ON DEPO SINCE AGE 17, DOES NOT HAVE PERIODS Onset/Duration: Started Days Ago, Still Present, Worse Since Timing: Constant Onset Severity: Severe Current Severity: Severe Pain Intensity: 9 Pain Scale Used: 0-10 Numeric Skin Location: Other: - HEAD Character: Swelling, Redness, Raised, Painful Aggravating Symptom(s): Nothing Alleviating Symptom(s): Nothing Associated Signs & Symptoms: Tenderness - Additional Pertinent History Primary Care Physician: Ric - Allergy/Home Medications Allergies/Adverse Reactions: Allergies Allergy/AdvReac Type Severity Reaction Status Date / Time Sulfa (Sulfonamide Allergy Mild Blisters Verified 06/25/18 16:37 Antibiotics) nitrofurantoin Allergy FACIAL Verified 04/19/18 17:33 [From Macrobid] BLISTERS sulfamethoxazole Allergy FACIAL Verified 04/19/18 17:33 [From Bactrim] BLISTERS trimethoprim [From Bactrim] Allergy FACIAL Verified 04/19/18 17:33 BLISTERS PMH/Surg Hx/FS Hx/Imm Hx Endocrine/Hematology History: Reports: Hx Diabetes Denies: Hx Anticoagulant Therapy GI History: Reports: Hx Gastroesophageal Reflux Disease History: Reports: Other Problems/Disorders - Genital herpes Psychiatric History: Reports: Hx Anxiety, Hx Depression, Hx Bipolar Disorder, Hx Substance Abuse - Alcoholism, MJ use Denies: Hx Eating Disorder, Hx of Violent Episodes Against Others - Surgical History Surgery Procedure, Year, and Place: Cervical cyst removal - Immunization History Date of Tetanus Vaccine: 2011 therefore updated today 04/19/2018 Infectious Disease History: Yes Infectious Disease History: Reports: Hx of Known/Suspected MRSA, 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 Denies: Traveled Outside the [place] in Last 30 Days - Family History Known Family History: Positive: Diabetes Negative: Hypertension - Social History Alcohol Use: Occasionally Alcohol Amount: TWICE A MONTH Hx Substance Use: Yes - formerly Substance Use Type: Reports: None Substance Use Comment - Amount & Last Used: states that no longer uses drugs, formerly MJ 1-2 x/month Hx Tobacco Use: Yes Smoking Status (MU): Heavy Every Day Tobacco Smoker Type: Cigarettes Amount Used/How Often: 1/2 PPD Review of Systems Negative: Fever Positive: Other - POSITIVE: JAW AND FACIAL PAIN Skin: Other - POSITIVE: SWELLING OF RIGHT EYE Positive: Other - POSITIVE: SORE ON RIGHT SIDE OF HEAD Positive: Headache All Other Systems Reviewed And Are Negative: Yes Physical Exam - Summary Physical Exam Summary: Appearance: Well-appearing, Well-nourished, lying in bed comfortable Skin: Small abscess with swelling on right parietal side associated with periorbital edema on the right Eyes: sclera anicteric, no conjunctival pallor ENT: mucous membranes moist Neck: deferred Respiratory: No signs of respiratory distress Cardiovascular: Appears well perfused, pulses are nml Abdomen: deferred Musculoskeletal: Moving all 4 extremities without obvious discomfort Neurological: Awake and alert, mentation is normal, speech is fluent and appropriate Psychiatric: affect is normal, does not appear anxious or depressed Triage Information Reviewed: Yes Vital Signs On Initial Exam: Initial Vitals Temp Pulse Resp BP Pulse Ox 98.8 F 104 20 128/101 96 10/24/18 18:42 10/24/18 18:42 10/24/18 18:42 10/24/18 18:42 10/24/18 18:42 Vital Signs Reviewed: Yes Procedures - Incision and Drainage Head Site: Right parietal side Anesthesia: Topical Instrument(s): Needle - SMALL AMOUNT OF PUS EXPRESSED. Diagnostics - Vital Signs Vital Signs Temp Pulse Resp BP Pulse Ox 10/24/18 18:44 105 18 96 10/24/18 18:42 98.8 F 104 20 128/101 96 - Laboratory Lab Statement: Any lab studies that have been ordered have been reviewed, and results considered in the medical decision making process. Course/Dx - Course Course Of Treatment: A 37 y/o female accompanied by a friend brought in by ambulance presents to the ED c/o of boil/zit on the right side of the head. Currently, the patient stated that the sore on her head is extremely painful and reaching 9/10 in severity. In the ED course, the patient has a pulse of 108 BPM and blood pressure of 147/89. According to the patient, she has a history of MRSA. She stated that she has a boil or zit on the right side of her head and she cannot sleep as for the last 3 days it is very painful/pressure. It has become increasing larger over the course of a couple days. No drainage was noted. She stated that the pain has been carrying down her right side of her face to her neck and jaw. She noted that her right eye swelled up this morning. Physical examination findings significant for small abscess with swelling on right parietal side associated with periorbital edema on the right. No laboratory scans were done. No laboratory scans were done. In the ED course, the patient received Vibramycin and Emla. Patient underwent an incision and drainage with topical anesthetic. A needle was used and a small amount of pus was expressed. Patient will be discharged with a diagnosis of abscess and MRSA. She will be sent home with prescriptions for Doxycycline and is to take medication as prescribed. Patient is to follow up with primary care provider in 2-3 days. Patient is to return to ED for any new or worsening symptoms. Patient is agreeable with this plan. - Diagnoses Provider Diagnoses: Abscess, MRSA (methicillin resistant Staphylococcus aureus) Discharge - Sign-Out/Discharge Documenting (check all that apply): Patient Departure - DISCHARGE - Discharge Plan Condition: Improved Disposition: HOME Prescriptions: DOXYcycline CAP(*) [DOXYcycline 100MG CAP(*)] 100 mg PO BID #14 cap Patient Education Materials: MRSA (Methicillin-Resistant Staphylococcus Aureus ) (ED), Abscess (ED) Referrals: Larissa Rawls MD [Primary Care Provider] - 3 Days (if not improving) Additional Instructions: FOLLOW UP WITH PRIMARY CARE PROVIDER IN 2-3 DAYS. RETURN TO ED FOR ANY NEW OR WORSENING SYMPTOMS. - Billing Disposition and Condition Condition: IMPROVED Disposition: Home - Attestation Statements Document Initiated by Rabia: Yes Documenting Scribe: Delgado Bynum Provider For Whom Rabia is Documenting (Include Credential): Mart Tam MD Scribe Attestation: Delgado Nunez, scribed for Mart Tam MD on 10/27/18 at 0205. Scribe Documentation Reviewed: Yes Provider Attestation: The documentation as recorded by the Delgado verde accurately reflects the service I personally performed and the decisions made by me, Mart Tam MD Status of Scribe Document: Viewed
[2018-10-24] MEDS ORDERED: DOXYcycline CAP(*) 100 MG PO ONE (20:13)
[2018-10-24 22:00] VITALS: BP 136/93
== END 2018-10-24 21:00 | disposition home or self-care (01) ==
LOC: ED 18:33
DX: L02.811 Cutaneous abscess of head [any part, except face] (principal); A49.02 Methicillin resistant Staphylococcus aureus infection, unspecified site; F17.210 Nicotine dependence, cigarettes, uncomplicated; Z88.2 Allergy status to sulfonamides
CPT/HCPCS: 99283; A9270-GY

== ENCOUNTER → 2018-10-27 13:06 | Emergency (ER) | payer OTHER ==
[~2018-10-27 13:06] MED LIST: Cephalexin CAP* 500 MG PO ONE; Famotidine TAB* 20 MG PO ONE; diPHENhydraMINE PO* 50 MG PO ONE; predniSONE TAB* 50 MG PO ONE
[2018-10-27 16:31] VITALS: BP 130/87
--- NOTE | 2018-10-27 16:33 | ED ---
Throat Pain/Nasal Congestion - HPI Summary HPI Summary: Patient is an otherwise healthy 37-year-old female with a history of MRSA presenting to the ED with a abscess to the right side of the head with subsequent swelling to the right eye approximately 2 days after. She was seen in the ED and given doxycycline which has improved her abscess to the head, however the rash swelling continues. She denies any ice or allergy medications. She denies any pain to the eye or entrapment. Denies any visual changes or disturbances. Denies any tearing from the eye or injection. She's never had this problem in the past, however has had multiple abscesses to her head and body otherwise which have all been positive for MRSA. She denies any fevers, sweats, chills. She denies any pain to the bilateral cheeks, forehead or ear or neck space. She denies any headache. - History of Current Complaint Chief Complaint: EDEyeProblem Time Seen by Provider: 10/27/18 14:06 Hx Obtained From: Patient Onset/Duration: Sudden Onset Severity: Moderate Associated Signs And Symptoms: Negative: Dysphagia, FB Sensation - Epiglottits Risk Factors Epiglottis Risk Factors: Negative - Allergies/Home Medications Allergies/Adverse Reactions: Allergies Allergy/AdvReac Type Severity Reaction Status Date / Time Sulfa (Sulfonamide Allergy Mild Blisters Verified 06/25/18 16:37 Antibiotics) nitrofurantoin Allergy FACIAL Verified 04/19/18 17:33 [From Macrobid] BLISTERS sulfamethoxazole Allergy FACIAL Verified 04/19/18 17:33 [From Bactrim] BLISTERS trimethoprim [From Bactrim] Allergy FACIAL Verified 04/19/18 17:33 BLISTERS PMH/Surg Hx/FS Hx/Imm Hx Previously Healthy: Yes Endocrine/Hematology History: Reports: Hx Diabetes Denies: Hx Anticoagulant Therapy GI History: Reports: Hx Gastroesophageal Reflux Disease History: Reports: Other Problems/Disorders - Genital herpes Psychiatric History: Reports: Hx Anxiety, Hx Depression, Hx Bipolar Disorder, Hx Substance Abuse - Alcoholism, MJ use Denies: Hx Eating Disorder, Hx of Violent Episodes Against Others - Surgical History Surgery Procedure, Year, and Place: Cervical cyst removal - Immunization History Date of Tetanus Vaccine: 2011 therefore updated today 04/19/2018 Hx Pertussis Vaccination: No Immunizations Up to Date: Yes Infectious Disease History: Yes Infectious Disease History: Reports: Hx of Known/Suspected MRSA, 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 Denies: Traveled Outside the [place] in Last 30 Days - Family History Known Family History: Positive: Diabetes Negative: Hypertension - Social History Occupation: Unemployed Lives: Alone Alcohol Use: Occasionally Alcohol Amount: TWICE A MONTH Hx Substance Use: Yes - formerly Substance Use Type: Reports: None Substance Use Comment - Amount & Last Used: states that no longer uses drugs, formerly MJ 1-2 x/month Hx Tobacco Use: Yes Smoking Status (MU): Heavy Every Day Tobacco Smoker Type: Cigarettes Amount Used/How Often: 1/2 PPD Review of Systems Negative: Fever, Chills, Fatigue, Skin Diaphoresis Positive: Erythema, Other - swelling to upper and lower lid. Negative: Photophobia, Blurred Vision, Diplopia, Drainage Negative: Dental Pain, Sore Throat Negative: Palpitations, Chest Pain Negative: Shortness Of Breath, Cough Negative: Arthralgia, Myalgia Positive: Other - erythema Neurological: Negative All Other Systems Reviewed And Are Negative: Yes Physical Exam Triage Information Reviewed: Yes Vital Signs On Initial Exam: Initial Vitals Temp Pulse Resp BP Pulse Ox 98.1 F 99 16 128/82 96 10/27/18 13:31 10/27/18 13:31 10/27/18 13:31 10/27/18 13:31 10/27/18 13:31 Vital Signs Reviewed: Yes Appearance: Positive: Well-Appearing Skin: Positive: Warm, Skin Color Reflects Adequate Perfusion, Other - erythema and swelling to the upper and lower lids Head/Face: Positive: Normal Head/Face Inspection Eyes: Positive: WARREN Neck: Positive: Supple, Nontender Respiratory/Lung Sounds: Positive: Clear to Auscultation, Breath Sounds Present Cardiovascular: Positive: RRR, Pulses are Symmetrical in both Upper and Lower Extremities Musculoskeletal: Positive: Normal Neurological: Positive: Alert, Oriented to Person Place, Time, Facial Symmetry Psychiatric: Positive: Affect/Mood Appropriate Diagnostics - Vital Signs Vital Signs Temp Pulse Resp BP Pulse Ox 10/27/18 13:31 98.1 F 99 16 128/82 96 - Laboratory Lab Statement: Any lab studies that have been ordered have been reviewed, and results considered in the medical decision making process. EENT Course/Dx - Course Course Of Treatment: During the course of treatment, the patient is evaluated for right eye swelling. On physical examination, there is swelling to the upper and lower lid of the right eye without right eye involvement. Denies any visual changes or disturbances. There is no injection to the eye. No evidence of entrapment. No evidence of foreign body or conjunctivitis. Slight erythema , without evidence of cellulitis to suggest preseptal or orbital cellulitis. Improvement of abscess to the head with doxycycline. She has not tried over-the -counter allergy medications or ice. I've advised she take Keflex 4 times daily 5 days for strep coverage as well as MRSA coverage she will continue the doxycycline. She is also given Benadryl and famotidine as well as prednisone for swelling. She is encouraged ice packs to the eye. As the swelling is discretely located to the upper and lower lids without involvement of the eye or surrounding structures, at this time and do not believe an image needs to be obtained. However, patient is given strict return precautions, specifically symptoms related to orbital or preseptal cellulitis. - Diagnoses Provider Diagnoses: Swollen eyelid Discharge - Sign-Out/Discharge Documenting (check all that apply): Patient Departure - Discharge Plan Condition: Stable Disposition: HOME Prescriptions: Cephalexin CAP* [Keflex CAP*] 250 mg PO QID #20 cap diPHENhydraMINE PO* [Benadryl PO 50 MG CAP*] 50 mg PO Q6H PRN #20 cap PRN Reason: Allergy Symptoms predniSONE TAB* [Deltasone TAB*] 50 mg PO DAILY #5 tab MDD 1 Referrals: Larissa Rawls MD [Primary Care Provider] - Additional Instructions: Prednisone once daily in the morning 5 days Keflex 4 times daily 5 days Benadryl up to 4 times daily, however twice daily may suffice for improvement of swelling Continue with ice packs to the bilateral eyes to reduce swelling Ibuprofen if needed for reduction of swelling Continue with doxycycline as prescribed - Billing Disposition and Condition Condition: STABLE Disposition: Home
== END | disposition home or self-care (01) ==
LOC: ED 13:06
DX: H02.843 Edema of right eye, unspecified eyelid (principal); F17.210 Nicotine dependence, cigarettes, uncomplicated; Z88.2 Allergy status to sulfonamides
CPT/HCPCS: 99282; A9270-GY; J7512

== ENCOUNTER 2019-02-06 04:44 | Emergency (ER) | payer OTHER ==
--- NOTE | 2019-02-06 05:01 | ED ---
Substance Abuse/Use - HPI Summary HPI Summary: Pt is a 38 y/o F presenting to the ED brought in by EMS for substance abuse. Per EMS, she called 911 and seemed very distraught. She reported drinking numerous tall boys and was fairly cooperative upon EMS arrival. Her blood sugar while under EMS tx was 421. The pt reports she is a type II diabetic, and tonight shes been drinking more than she expected and she called the ambulance because she was nauseous and the room was spinning. She feels depressed but denies SI. - History Of Current Complaint Chief Complaint: EDSubstanceAbuse Stated Complaint: MHE PER EMS Time Seen by Provider: 02/06/19 04:50 Hx Obtained From: Patient Hx Last Menstrual Period: ON DEPO SINCE AGE 17, DOES NOT HAVE PERIODS Onset/Duration of Drug/ETOH Abuse: Hours Overdose Characteristics: Oral Timing Of Abuse: Binge Use Severity Initially: Moderate Severity Currently: Moderate Character: Depressed, Stuporous Aggravating Factor(s): Nothing Alleviating Factor(s): Nothing Associated Signs And Symptoms: Nausea, Other: - room spinning - Allergies/Home Medications Allergies/Adverse Reactions: Allergies Allergy/AdvReac Type Severity Reaction Status Date / Time Sulfa (Sulfonamide Allergy Mild Blisters Verified 02/06/19 05:00 Antibiotics) nitrofurantoin Allergy FACIAL Verified 02/06/19 05:00 [From Macrobid] BLISTERS sulfamethoxazole Allergy FACIAL Verified 02/06/19 05:00 [From Bactrim] BLISTERS trimethoprim [From Bactrim] Allergy FACIAL Verified 02/06/19 05:00 BLISTERS PMH/Surg Hx/FS Hx/Imm Hx Previously Healthy: Yes Endocrine/Hematology History: Reports: Hx Diabetes Denies: Hx Anticoagulant Therapy Cardiovascular History: Denies: Hx Hypertension GI History: Reports: Hx Gastroesophageal Reflux Disease History: Reports: Other Problems/Disorders - Genital herpes Denies: Hx Renal Disease Psychiatric History: Reports: Hx Anxiety, Hx Depression, Hx Bipolar Disorder, Hx Substance Abuse - Alcoholism, MJ use Denies: Hx Eating Disorder, Hx of Violent Episodes Against Others - Surgical History Surgery Procedure, Year, and Place: Cervical cyst removal - Immunization History Date of Tetanus Vaccine: 2011 therefore updated today 04/19/2018 Infectious Disease History: Reports: Hx of Known/Suspected MRSA, 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 - Family History Known Family History: Positive: Diabetes Negative: Hypertension - Social History Alcohol Use: Occasionally Alcohol Amount: TWICE A MONTH Hx Substance Use: Yes - formerly Substance Use Type: Reports: None Substance Use Comment - Amount & Last Used: states that no longer uses drugs, formerly MJ 1-2 x/month Hx Tobacco Use: Yes Smoking Status (MU): Heavy Every Day Tobacco Smoker Type: Cigarettes Amount Used/How Often: 1/2 PPD Review of Systems Positive: Nausea Positive: Depressed All Other Systems Reviewed And Are Negative: Yes Physical Exam - Summary Physical Exam Summary: VITAL SIGNS: Reviewed. GENERAL: Patient is a well-developed and nourished female who is lying comfortable in the stretcher. Patient is not in any acute respiratory distress. HEAD AND FACE: No signs of trauma. No ecchymosis, hematomas or skull depressions. No sinus tenderness. EYES: PERRLA, EOMI x 2, No injected conjunctiva, no nystagmus. EARS: Hearing grossly intact. Ear canals and tympanic membranes are within normal limits. MOUTH: Oropharynx within normal limits. NECK: Supple, trachea is midline, no adenopathy, no JVD, no carotid bruit, no c- spine tenderness, neck with full ROM. CHEST: Symmetric, no tenderness at palpation LUNGS: Clear to auscultation bilaterally. No wheezing or crackles. CVS: Tachycardic, S1 and S2 present, no murmurs or gallops appreciated. ABDOMEN: Soft, non-tender. No signs of distention. No rebound no guarding, and no masses palpated. Bowel sounds are normal. EXTREMITIES: FROM in all major joints, no edema, no cyanosis or clubbing. NEURO: Alert and oriented x 3. No acute neurological deficits. Speech is normal and follows commands. SKIN: Dry and warm Triage Information Reviewed: Yes Vital Signs Reviewed: Yes Diagnostics - Laboratory Result Diagrams: 02/06/19 05:26 02/06/19 05:26 Lab Statement: Any lab studies that have been ordered have been reviewed, and results considered in the medical decision making process. - Radiology CXR Radiology Interpretation Completed By: ED Physician Summary of Radiographic Findings: Negative. Pending official radiology report. Course/Dx - Course Course Of Treatment: Pt is a 38 y/o F presenting to the ED brought in by EMS for substance abuse. Per EMS, she called 911 and seemed very distraught. She reported drinking numerous tall boys and was fairly cooperative upon EMS arrival. Her blood sugar while under EMS tx was 421. She reports she called the ambulance because she was nauseous and the room was spinning. She feels depressed but denies SI. CXR is negative, pending official radiology report. Her blood glucose was 402. She will be signed out to Dr. Santana pending sobriety. - Diagnoses Provider Diagnoses: Alcohol intoxication Discharge - Sign-Out/Discharge Documenting (check all that apply): Sign-Out Patient Signing out patient TO: Tyree Santana - Discharge Plan Condition: Stable Referrals: Larissa Rawls MD [Primary Care Provider] - - Attestation Statements Document Initiated by Scribe: Yes Documenting Scribe: Susannah Gr Provider For Whom Johannaibe is Documenting (Include Credential): Rodolfo Arrington MD. Scribe Attestation: Susannah Nunez, scribed for Rodolfo Arrington MD. on 02/06/19 at 0707. Status of Scribe Document: Ready
[2019-02-06] MEDS ORDERED: NS 0.9% 1000 ML** 2,000 ML IV ONE (05:02)
[2019-02-06] MEDS ORDERED: Insulin REGULAR(*) 1 UNITS UNIT IV PUSH ONE (05:03)
[2019-02-06] MEDS ORDERED: Metoclopramide IV* 5 MG/ML 2 ML VIAL IV SLOW PU ONE (05:04)
[2019-02-06 05:37] LABS: ABS Basophils 0.1 10^3/ul (0-0.2); ABS Eosinophils 0.1 10^3/ul (0-0.6); ABS Lymphocytes 3.4 10^3/ul (1.0-4.8); ABS Monocytes 0.6 10^3/ul (0-0.8); ABS Neutrophils 4.8 10^3/ul (1.5-7.7); ABS Nucleated RBC 0 10^3/ul; Eosinophil % 1.6 %; Hematocrit 48 % (33-41); Hemoglobin 15.9 g/dL (12.0-16.0); Mean Corpuscular HGB Conc 33 g/dL (31-36); Mean Corpuscular Hemoglobin 29 pg (27-31); Mean Corpuscular Volume 86 fL (80-97); Mean Platelet Volume 7.5 fL (7.4-10.4); Nucleated Red Blood Cells % 0.1; Platelet Count 287 10^3/uL (150-450); Red Blood Count 5.57 10^6 /uL (3.70-4.87); Red Cell Distribution Width 13 % (10.5-15)
[2019-02-06 05:42] LABS: INR 0.82 (0.77-1.02)
[2019-02-06 05:58] LABS: Alcohol 192 mg/dL (<10)
[2019-02-06 06:01] LABS: ALT 33 U/L (7-52); AST 14 U/L (13-39); Albumin 4.3 g/dL (3.2-5.2); Albumin/Globulin Ratio 1.4 (1-3); Alkaline Phosphatase 103 U/L (34-104); Amylase 39 U/L (29-103); Anion Gap 16 mmol/L (2-11); BUN/Creatinine Ratio 10.1 (8-20); Blood Urea Nitrogen 7 mg/dL (6-24); C Reactive Protein 2.29 mg/L (<8.01); CO2 Carbon Dioxide 17 mmol/L (22-32); Calcium 9.2 mg/dL (8.6-10.3); Chloride 103 mmol/L (101-111); EGFR African American 114.6 (>60); EGFR Non-African American 94.7 (>60); Glucose 412 mg/dL (70-100); Potassium 3.7 mmol/L (3.5-5.0); Sodium 136 mmol/L (135-145); Total Protein 7.3 g/dL (6.4-8.9)
[2019-02-06 06:09] LABS: HCG Pregnancy < 0.60 mIU/mL
--- NOTE | 2019-02-06 07:31 | ED ---
Progress - Progress Note Progress Note: This patient was signed out from Dr. Arrington to Dr. Santana upon shift change at 07: 00 02/06/19 pending sobriety. POC glucose at 08:03 of 306. The patient is now sober. I discussed results with patient and she reports feeling better. She is hemodynamically stable and safe for discharge. Strict return precautions given and she will otherwise follow up with her PCP. Course/Dx - Course Course Of Treatment: This patient was signed out from Dr. Arrington to Dr. Santana upon shift change at 07:00 02/06/19 pending sobriety. POC glucose at 08:03 of 306. The patient is now sober. I discussed results with patient and she reports feeling better. She is hemodynamically stable and safe for discharge. Strict return precautions given and she will otherwise follow up with her PCP. - Diagnoses Provider Diagnoses: Alcohol intoxication, Hyperglycemia due to type 2 diabetes mellitus Discharge - Sign-Out/Discharge Documenting (check all that apply): Patient Departure - DC, Receiving Sign-Out Receiving patient FROM: Rodolfo Arrington Patient Received Moderate/Deep Sedation with Procedure: No - Discharge Plan Condition: Stable Disposition: HOME Patient Education Materials: Alcohol Intoxication (ED), Diabetic Hyperglycemia (ED) Referrals: Larissa Rawls MD [Primary Care Provider] - (1-3 days) Additional Instructions: Follow up with your primary care physician in 1-3 days. RETURN TO THE EMERGENCY DEPARTMENT FOR CHANGING OR WORSENING SYMPTOMS. - Billing Disposition and Condition Condition: STABLE Disposition: Home - Attestation Statements Document Initiated by Kathye: Yes Documenting Scribe: Willie Luis Provider For Whom Rabia is Documenting (Include Credential): Rodolfo Arrington MD Scribe Attestation: Willie Nunez, scribed for Rodolfo Arrington MD on 02/07/19 at 1230. Scribe Documentation Reviewed: Yes Provider Attestation: The documentation as recorded by the Willie verde accurately reflects the service I personally performed and the decisions made by me, Rodolfo Arrington MD Status of Scribe Document: Viewed
[2019-02-06] MEDS ORDERED: NS 0.9% 1000 ML** 1,000 ML IV ONE (08:10)
[2019-02-06 08:18] LABS: Urine Appearance Clear; Urine Bilirubin Negative (Negative); Urine Blood Negative (Negative); Urine Color Straw; Urine Glucose 3+(>=500 mg/dL) (Negative); Urine Ketones 1+ (Negative); Urine Nitrite Negative (Negative); Urine Protein Negative (Negative); Urine Specific Gravity 1.024 (1.010-1.030); Urine Urobilinogen Negative (Negative)
[2019-02-06 10:35] VITALS: BP 131/72
== END 2019-02-06 10:34 | disposition home or self-care (01) ==
LOC: ED 04:44
DX: F10.129 Alcohol abuse with intoxication, unspecified (principal); E11.65 Type 2 diabetes mellitus with hyperglycemia; Z79.84 Long term (current) use of oral hypoglycemic drugs; Z88.2 Allergy status to sulfonamides
CPT/HCPCS: 36415; 71045; 80053; 80320; 81003; 82150; 82803; 83690; 84702; 85025; 85610; 86140; 96361; 96374; 96375; 96376; 99283; G0480; J2765

== ENCOUNTER 2019-09-03 16:29 | Emergency (ER) | payer OTHER ==
--- OUTSIDE RECORDS SUMMARY | 2019-09-03 17:07 | XMS REPORT | Continuity of Care Document ---
:1980 Author Organization [facility] Address [address] [place] [address] Phone Care Team Providers Name Role Phone Darnell ANGEL, Katy Unavailable Unavailable Allergies, Adverse Reactions, Alerts Substance Reaction Status trimethoprim Active sulfamethoxazole Active NITROFURANTOIN MACROCRYSTALLINE BLISTERS Active nitrofurantoin BLISTERS Active Sulfa (Sulfonamide Antibiotics) Unknown Active Medications Medication Instructions Dosage Effective Dates Status Comments (start - stop) Depo-Provera 150 IM Q 11-13 weeks - Active mg/mL intramuscular suspension Depo-Provera 150 IM Q 11-13 weeks - Active mg/mL intramuscular suspension PRILOSEC (unknown Not Available - Active strength) HYDROXYZINE HCL Not Available - Active (unknown strength) TRULICITY (unknown Not Available - Active strength) FLUCONAZOLE (unknown Not Available - Active strength) ACYCLOVIR (unknown Not Available - Active strength) ATORVASTATIN CALCIUM Not Available - Active (unknown strength) Problems Condition Effective Dates Clinical Status Comments (start - stop) Human immunodeficiency - virus [HIV] counseling Encounter for screening for - human immunodeficiency virus Encntr screen for infections w sexl mode of transmiss Encounter for surveillance of injectable contraceptive Human immunodeficiency - virus [HIV] counseling Encounter for surveillance of injectable contraceptive Human immunodeficiency - virus [HIV] counseling Human immunodeficiency - virus [HIV] counseling Encounter for screening for - human immunodeficiency virus Encntr screen for infections w sexl mode of transmiss Encounter for ot general cnsl and advice on contraception Irregular menstruation, unspecified Pelvic and perineal pain Human immunodeficiency - virus [HIV] counseling Frequency of micturition Encntr screen for infections w sexl mode of transmiss Candidiasis of vulva and vagina Encounter for surveillance of injectable contraceptive Dysuria Encntr screen for infections w sexl mode of transmiss Anogenital (venereal) warts Pruritus vulvae Encounter for surveillance of injectable contraceptive Encntr for pin attacher exam (general) (routine) w/o abn findings Encounter for surveillance of injectable contraceptive Encounter for ot general - cnsl and advice on contraception [...] Candidiasis of vulva and vagina Encounter for oth general cnsl and advice on contraception Encounter [...] for surveillance of injectable contraceptive Encntr for pin attacher exam (general) (routine) w/o abn findings BCM [...] 02/2012); MRSA (12/2016). LB Procedures Procedure Date PREVENTIVE COUNSELING, 8-14 Minutes HIV-1/HIV-2, SINGLE ASSAY N.GONORRHOEAE, DNA, AMP PROB CHYLMD DNA, AMP PROBE TRICHOMONAS VAGIN, DIR PROBE WET SMEAR ASSAY OF BODY FLUID-PH OFFICE/OUTPATIENT VISIT, EST OTHER Medical Services Contraceptive Headwaiter/Headwaitress.Svc. Other Headwaiter/Headwaitress.Svc. STI Results Test Name Date and Time Measure Units Reference Range Abnormal Flag Status Comments Panel Description: Wet Mount Final Wet Mount 16:10:36 Hyphae/Iris: noBudding yeast: Final noTrich: noClue cells: noWBCs: noAmine/Whiff test: negativepH: 4.0 Panel Description: C trach DNA XXX Ql PCR Final Swab CT - Negative N Final Performed by:
CDD Vaginal 00:00:00 ([id number])

Panel Description: Amplified GC - Vaginal Final Swab GC - Negative N Final : Vaginal 00:00:00 No

Performed by:
CDD ([id number])

Advance Directives Directive Yes / No Effective Date File Name No information Encounters Encounter Practice Location Reason(s) Diagnoses Date Provider Providers Description For Visit Copied on Encounter PREVENTIVE [facility] STI Human Darnell Referring COUNSELING, [facility] [place] Testing No immunodeficienc 1 Katy. 620 W Provider: 8-14 Minutes Southern Symptoms y virus [HIV] [address], [place] (F) ([place], Darnell [facility], 620 complaint) [place] [address]. , [address] screening for tel:[phone], St, [place], [place] [address] [place], [place]ien[place] [address]. [id number], y virusEncntr tel:+[phone] [place] screen for 887412 tel:+[phone] infections w [phone] sexl mode of transmiss [facility] Encounter for Jul- Roxie Arrington. Referring [facility] [place] surveillance of [address] Provider: Southern injectable 9 St, [place], [place], [address], [place], [address] [place], 620 man [place]. [address] [place] [address] immunodef[address]ienc [address], [place], [place], [place], [place] virus [place]HIV] [place], [place] [address].Consu [id number], lting [place] Provider: tel:[phone] [place] 532668 [facility] Encounter for Roxie Arrington. Referring [facility] [place] surveillance of [address] Provider: Southern injectable 9 St, [place], [place], [address], White, 620 [place], 620 man [place]. [address] [place] [address] immunodeficienc St, [place], [place], [place], [place] virus [place]HIV] [place], [place] [address].Consu [id number], lting [place] Provider: tel:[phone] [place] 115829 [facility] Human Mar- Louise Ruth. Referring [facility] [place] immunodeficienc [address] Provider: Rubio y virus [HIV] 9 St, [place], [place], [address]. Louise, 620 [place], 620 nter for tel:[phone] [place] [address] [place], [place], St, [place], [place], [address]. [place], immunodeficienc tel:[phone], y virusEncntr 986882 [place] screen for tel:[phone] infections w [phone] sexl mode of transmissEncoun ter for oth general cnsl and advice on contraceptionIr regular menstruation, unspecifiedPelv ic and perineal pain [facility] Human Mar- Angie Referring [facility] [place] immunodeficienc Nirali. 620 Provider: Southern y virus [HIV] [address], Nirali Finger counselingFrequ [place], [place], Angie J, 620 [place], 620 [place] [address], [place]. [address] [place] micturitionEncn tel:[phone] St, [place], [place], [place], [place] [address] [place], [address]. [place], infections w tel:[phone], sexl mode of 918277 [place] transmissCandid tel:[phone] iasis of vulva [phone] and vagina [facility] Encounter for February- Parete Referring [facility] [place] surveillance of 2-201 Michaela. 620 W Provider: [facility] injectable [address], Michaela Finger contraceptive [place], Parete, 620 [place], 620 [address]. [address] [place] [address] [place] tel:[phone] St, [place], [place], [place], [address] [place], [address]. [place], tel:[phone], [id number] [place] lting tel:[phone] Provider: [id number] [place] [facility] DysuriaEncntr Dec- [facility] Referring [facility] [place] screen for 4-201 Michaela. 620 W Provider: [facility] infections w [address], Michaela Finger sexl mode of [place], Parete, 620 [facility], 620 transmissAnogen [address]. [address] [place] [address] [place] ital (venereal) tel:[phone] St, [place], St, [place], [place]arts[place] [address] [place], [address]. [place], vulvae tel:[phone], 110315 [place] tel:[phone] [facility] Encounter for Dec- White Nury. Referring [facility] [place] surveillance of 0-201 [address] Provider: [facility] injectable 9 St, [place], [place], [address], White, 620 [facility], 620 [place]. [address], [place], [place], [place], [address]. [place], [id number], [place] tel:[phone] [facility] Encntr for pin attacher Sep- [facility] exam (general) 1-201 Katy. 620 W Provider: [facility] (routine) w/o [address], [place] Finger abn [place], [place]haelidis [place], 620 findingsEncount [address]. , [address] er for tel:[phone] [address], [place], [place], [place] [address] [place], [place], injectable [address]. [id number], contraceptiveEn tel:[phone] [place] counter for oth 609410 tel:[phone] general cnsl [phone] and advice on contraception [facility] Encounter for Parete Referring [facility] [place] surveillance of 4 Michaela. 620 W Provider: Southern injectable [address], Michaela Finger contraceptive [place], Parete, 620 [place], 620 [address]. [address] [place] tel:[phone] St, [place], [place], [place], [address] [place], [address]. [place], tel:[phone], [id number] [place] lting tel:[phone] Provider: [id number] [place] [facility] Encounter for White Nury. Referring [facility] [place] surveillance of [address] Provider: Southern injectable 8 St, [place], [place], [address], White, 620 [facility], 620 [place]. [address], [place], [place], [place], [address]. [place], [id number], [place] tel:[phone] [facility] Human Darnell Referring [facility] [place] immunodeficienc 0-201 Katy. 620 W Provider: [facility] y virus [HIV] [address], [place] Finger counselingEncou [place], Raphaelidis [facility], 620 [place] [address]. , [address] screening for tel:[phone], St, [place], [place] [address] [place], [place], [place] [address]. [id number], y virus tel:[phone] [place] [phone] tel:[phone] lting [phone] Provider: [place]SE [place] [facility] Encounter for Raphaelidis Referring [facility] [place] surveillance of Katy. 620 W Provider: Southern injectable [address], [place] Finger contraceptive [place], Raphaelidis [facility], 620 [address]. , [address] tel:[phone], St, [place], [address] [place], [address]. [id number], tel:+[phone] [place] 244180 tel:[phone] [facility] Frequency of [place] Referring [facility] [place] m[facility]itionUrge [facility] Provider: [facility] ncy of 8 Sueane. 620 Sueane Finger urinationEncntr [address], [place], 620 screen for [place], [place], [place], [place] [address], [place], sexl mode of tel:[phone] [address], [place], transmiss [address] [place], [place], [id number], [address]. [place] tel:+[phone] tel:[phone] [facility] Encntr screen February- Raphaelidis Referring [facility] [place] for infections Katy. 620 W Provider: [facility] w sexl mode of [address], [place] Finger transmissTinea [place], [place], [place], 620 cruris [address]. , [address] tel:[phone] [address], St, [place], [address] [place], [place], [address]. [id number], tel:+[phone] US 865876 tel:[phone] [facility] Encounter for Roxie Arrington. Referring [facility] surveillance of [address] Provider: Southern injectable 8 St, [place], [place], [address], [place], 620 [place], 620 [place]. [address], [place], St, [place], [address].Consu [id number], lting [place] Provider: tel:[phone] [place] 195432 [facility] Encounter for Dec-0 Roxie Arrington. Referring [facility] surveillance of [address] Provider: Southern injectable 8 St, [place], [place], [address], [place], 620 [place], 620 [place]. [address], [place], St, [place], [address].Consu [id number], lting [place] Provider: tel:[phone] [place] 363241 [facility] Encounter for Dec-2 Barb Referring [facility] [place] surveillance of 8201 Korin. 620 W Provider: Southern injectable [address], Korin Finger contraceptive [place], Barb Smalls [facility], 620 [address]. [address] [place] tel:[phone] [address], St, [place], [address] [place], [place], [address]. [id number], tel:[phone] [place] [phone] tel:[phone] lting [phone] Provider: [place]SE [place] [facility] Human Roxie Arrington. Referring [facility] [place] immunodeficienc 0- [address] Provider: Southern y virus [HIV] 7 St, [place], [place], [address], White, [address] [place] [address], 620 nter for [place]. [address] [place] [address] [place] surveillance of St, [place], St, [place], injectable [place], [place], contraceptiveEn [address].Consu [id number], counter for lting US screening for Provider: tel:[phone] [place] [id number] immunodeficienc [facility]. y virus [facility] Human Louise Ruth. Referring [facility] [place] immunodeficienc [address] Provider: [facility] y virus [HIV] 7 St, [place], [place], [address]. Lori Anaya [facility], 620 nter for tel:[phone] [place] [address], St, [place], injectable [place], [place], contraceptive [address]. [id number], tel:+[phone] US [phone] tel:[phone] [facility] Encntr screen Roxie Arrington. Consulting [facility] [place] for infections [address] Provider: [facility] w sexl mode of 7 St, [place], [place], [address], [facility]. [facility], [address], [place], [place], [id number], [place] tel:[phone] [facility] Human Borglum [facility] [place] immunodeficienc Mohini. 620 Southern y virus [HIV] [address], Finger counselingEncou [place], [facility], 620 [place] [address], [place]. [address] [place] screening for tel:[phone] St, [place], [place] [address] [place], immunodeficienc [id number], y virusEncntr [place] screen for tel:[phone] infections w 438861 sexl mode of transmissEncoun ter for oth general cnsl and advice on contraceptionCa ndidiasis of vulva and vaginaPatient's noncompliance w oth medical treatment and regimen [facility] Encounter for Peng-0 Cristoferidis Referring [facility] surveillance of 2-201 Katy. 620 W Provider: Southern injectable [address], Paola Finger contraceptive [place], [place], Angella Boone, 620 [address]. [address] [place] tel:[phone] [address], St, [place], [address] [place], [place], [address]. [id number], tel:+[phone] [place] 682383 tel:[phone] [facility] Encounter for Mar-2 Roxie Arrington. Referring [facility] [place] surveillance of [address] Provider: Southern injectable 7 St, [place], [place] [address], Angella Boone, 620 [place]. [address], St, [place], [place], [address]. [id number], tel:[phone] [place] [phone] tel:[phone] lting [phone] Provider: [place] [facility] Unspecified Mar-1 Raphaelidis [facility] [place] abdominal 7-201 Katy. 620 W [facility] painCandidiasis [address], Finger of vulva and [place], [facility], 620 vagina [address]. [address] [place] tel:[phone] St, [place], [address] [place], [id number], [place] tel:[phone] [facility] Encounter for Lev- Borglum Referring [facility] surveillance of 1- Mohini. 620 Provider: Southern injectable [address], Paola Finger contraceptiveEn [place], [place], Angella [place]one, 620 [place] [address], [place]. [address] [place] test, tel:[phone], St, [place], result negative [address] [place], [place], [address]. [id number], tel:[phone] [place] [phone] tel:[phone] lting [phone] Provider: [place] [facility] Candidiasis of Guggino [facility] [place] vulva and Brittany. Southern vaginaEncounter 6 [address] Finger for oth general St, [place], [facility], 620 [place], [address], [address] [place] on [place]. St, [place], contraceptionRa tel:[phone] [place], sh and other [id number], nonspecific [place] skin eruption tel:[phone] [facility] Frequency of White Nury. [facility] [place] micturitionNoni [address] Southern nflammatory 6 , [place], [place], [address], [facility], [facility] vagina, [place]. [address]co [address], [place], unter for [place], surveillance of [id number], injectable [place] contraceptiveEn tel:[phone] cntr screen for 276295 infections w sexl mode of transmiss [facility] Encounter for Borglum Referring [facility] [place] surveillance of Mohini. [facility] Provider: Southern injectable [address], Paola [place]inger contraceptive [place], Lori Anaya [facility], [facility] [address], [place]. [address] [place] tel:[phone] St, [place], [address] [place], [address]. [id number], tel:[phone] [place] [phone] tel:[phone] lting [phone] Provider: [place] [facility] Encounter for Borglum [facility] [place] surveillance of De Berry. 620 Southern injectable [address], Finger contraceptivePe [place], [place], [facility], 620 rsonal history [address], [place]. [address] [place] of oth diseases tel:[phone] St, [place], of the female [address] [place], genital [id number], tractHerpesvira [place] l infection of tel:[phone] urogenital [phone] system, unspecifiedObes ity, unspecifiedToba director of accounts receivable use [facility] Encounter for Borglum Referring [facility] surveillance of Mohini. [facility] Provider: Southern injectable [address], Paola Finger contraceptive [place], Angella Boone, 620 [address], [place]. [address] [place] tel:[phone] [address], St, [place], [address] [place], [place], [address]. [id number], tel:[phone] [place] 563488Ekmkz tel:[phone] lting [phone] Provider: NURSE [place] MADY [facility]. [facility] Encounter for Borglum Consulting [facility] test, Mohini. 620 Provider: Southern result negative [address], NURSE [place], [facility]. [place] [address], [place]. W [place] tel:+[phone] St, [place], [address] [place], [id number], [place] tel:[phone] [facility] Encounter for Roxie Arrington. Consulting [facility] test, [address] [place] Provider: Southern result negative 6 St, [place], [place], [address], [facility]. [place] [address], [place], [place], [id number], [place] tel:[phone] [facility] Candidiasis of [place] [facility] vulva and [facility] vagina 6 Sueane. [address], [facility], 620 [place], [place], [address] [place] [address]. [address], [place], tel:+[phone] [place], [id number], [place] tel:[phone] [facility] Encntr screen White Nury. Referring [facility] for infections [address] Provider: Southern w sexl mode of 6 St, [place], [place] [address], Angella Boone, [address] ter for [place]. [address] W [address] [place] surveillance of [address], St, [place], injectable [place], [place], contraceptive [address]. [id number], tel:[phone] [place] [phone] tel:[phone] lting [phone] Provider: [place]SE [place] [facility] Candidiasis of Peng-0 Hemmer [facility] [place] vulva and 6 [place] Southern vagina 6 Sueane. [address], [place], 620 [place], [place], [address] [place] [address], [place], tel:[phone] [place], [id number], [place] tel:[phone] [facility] Candidiasis of February- Roxie Arrington. [facility] [place] vulva and 0-201 [address] Southern vaginaEncounter 6 St, [place], [place], [address], [facility], 620 cnsl and advice [place]. [address] [place] on [address], [place], contraceptionEn [place], counter for [id number], surveillance of [place] injectable tel:[phone] contraceptive [phone] [facility] Human February- Roxie Arrington. Consulting [facility] [place] immunodeficienc 9- [address] [place] Provider: [facility] y virus [HIV] 6 , [place], [place], [address], [facility]. [facility], 620 nter for [place]. [address] [place] screening for St, [place], human [place], immunodeficienc [id number], y virus [place] tel:[phone] [facility] Candidiasis of Mar-3 Ottoson [facility] [place] vulva and Pavel. 620 Southern vaginaAnogenita [address], Finger l (venereal) [place], [place], [place], 620 warts [address]. [address] [place] tel:[phone] St, [place], [address] [place], [id number], [place] tel:[phone] [facility] Frequency of Mar-1 Parete [facility] [place] micturitionCand . 620 W Southern idiasis of [address], Finger vulva and [place], [place], [place], 620 vaginaAnogenita [address]. [address] [place] l (venereal) tel:[phone] St, [place], warts [address] [place], [id number], [place] tel:[phone] [facility] Anogenital Dani Miranda. [facility] [place] (venereal) [address] [place] Southern wartsCandidiasi 6 St, [place], [place], [address]. [place], 620 vagina tel:[phone] [address], [place], [place], [id number], [place] tel:[phone] [facility] Oth cond assoc Kornblum [facility] [place] w female - Korin. 620 W Southern genital organs [address], Finger and menstrual [place], [place], [facility], 620 cycle [address]. [address] [place] tel:[phone] St, [place], [address] [place], [id number], [place] tel:[phone] [facility] Encounter for Kornblum [facility] [place] surveillance of Korin. 620 W Southern injectable [address], Finger contraceptiveNo [place], [place], [facility], 620 ninflammatory [address]. [address] [place] disorder of tel:[phone] St, [place], vagina, [address] [place], unspecified [id number], [place] tel:[phone] [facility] Anogenital Raphaelidis [facility] [place] (venereal) . 620 W Southern wartsCandidiasi [address], Finger s of vulva and [place], [place], [facility], 620 vagina [address]. [address] [place] tel:[phone] St, [place], [address] [place], [id number], [place] tel:[phone] [facility] Encounter for Parete [facility] [place] test, . 620 W Southern result [address], Finger negativeFrequen [place], [place], [place], 620 [place] [address]. [address] [place] micturitionAnog tel:[phone] St, [place], enital [address] [place], (venereal) [id number], wartsCandidiasi [place] s of vulva and tel:[phone] vaginaEncntr [phone] screen for infections w sexl mode of transmiss [facility] Encounter for Nov Ese Mason. Referring [facility] surveillance of 620 W. Provider: Southern injectable [address] Isabella Mulligan Finger contraceptive [place], C, 620 W. [facility], [facility] [address] [place] tel:+[phone] [place], [place], [place], [place], [address]. [place], tel:[phone], 022255Cxwil [place] lting tel:[phone] Provider: 960836 [place] [facility] Encntr for pin attacher Raphaelidis [facility] exam (general) Katy. 620 W Southern (routine) w/o [address], Finger abn findings [place], [facility], 620 [address]. [address] [place] tel:+[phone] St, [place], [address] [place], [id number], [place] tel:[phone] [facility] BCM Other, Sep-0 [facility] Referring [facility] Surveillance 2 Sherrie. 620 W Provider: Southern [address], Sherrie Finger [place], [facility], [facility] [address]. [address] [place] tel:[phone] [address], St, [place], [address] [place], [address]. [id number], tel:+[phone] [place] 534334 tel:[phone] [facility] STI Screening Aug-0 Avidano [facility] 5 Sherrie. 620 W Southern [address], Finger [place], [place], [facility], [facility] [address]. [address] [place] tel:+[phone] St, [place], [address] [place], [id number], [place] tel:[phone] [facility] STI [place] [facility] ScreeningYeast- 3 [place] Southern vulvovaginal 5 Sueane. [address], [facility], 620 [place], [place], [place] [address]. [address], [place], tel:+[phone] [place], [id number], [place] tel:[phone] [facility] PT, Negative Peng- Alejandro Referring [facility] [place] Oni. 135 Provider: Southern [address], Oni [place], [place], Alejandro, [facility], 620 [address], [place]. [address] [place] tel:+[phone] St, St, [place], [address] [place], [place], [address]. [id number], tel:+[phone] [place] [phone] tel:[phone] lting [phone] Provider: N[place]SE [place] [facility]. [facility] BCM Other, Avidano Referring [facility] [place] SurveillancePel Sherrie. 620 W Provider: [facility] Pain - [address], Sherrie Finger NOSYeast-vulvov [place], [facility], [facility], 620 aginal [address]. [address] [place] tel:+[phone] [address], St, [place], [address] [place], [place], [address]. [id number], tel:+[phone] US 844842 tel:[phone] [facility] BCM Other, Louise Ruth. Referring [facility] [place] SurveillanceSTI [address] [place] Provider: [facility] Screening 5 St, [place], [place], [address]. Louise, 620 [facility], 620 tel:[phone] [address] [place] [address] [place] [address], [place], , [place], [address]. [place], tel:[phone], [phone] [place] tel:[phone] [facility] Other, [facility] [place] Surveillance 2 Sherrie. 620 W Provider: Southern [address], [place], [place], [facility], 620 [address]. [address] [place] tel:[phone], [address], [place], [address] [place], [place], [address]. [id number], tel:[phone] tel:[phone] Provider: NURSE [place] [facility]. [facility] Urinary Sep-2 [facility] [place] frequencyBCM 5-201 Michaela. 620 W Provider: Southern Other, [address], [place], Parete, [address] [place] [address], [facility] [address]. [address] [place] tel:[phone] St, [place], St, [place], [address] [place], [address]. [place], tel:[phone], [phone] [place] tel:[phone] [facility] Apr-3 Lori [facility] [place] 0-201 Paola. [address], [place], [facility], [facility] [address]. [address] [place] tel:[phone] , [place], [address] [place], [id number], [place] tel:[phone] [facility] Yeast-vulvovagi Apr-2 [facility] [place] nal 3-201 Sherrie. [address], [facility], [place], [facility], [facility] [address]. [place] tel:[phone] , [place], [address] [place], [id number], [place] tel:[phone] [facility] HIV, Apr- Raphaelidis [facility] [place] ScreeningHIV 8 Katy. 620 [address] Southern [facility] [address], [place], [facility], [facility] [address]. [place] tel:[phone] , [place], [address] [place], [id number], [place] tel:[phone] [facility] B[facility] Other, Apr- Raphaelidis Referring [facility] 8 Katy. 620 W Provider: Southern [address], Martina [place], [place], [place], [facility], [facility] [address]. [address] [place] tel:[phone] [facility] [address], St, [place], [address] [place], [place], [address]. [id number], tel:[phone] [place] [phone] tel:[phone] Provider: [place]SE [place] [facility]. [facility] HIV, February-2 P[facility]te [facility] [place] ScreeningHIV 8- Michaela. [address] [facility] Counseling [address], [place], [place], [facility], 620 [address]. [place] tel:[phone] St, [place], [address] [place], [id number], [place] tel:[phone] [facility] BVYeast-vulvova May-2 [place] [facility] [place] ginal 8- Pavel. [address], [place], [place], [facility], 620 [address]. [place] tel:[phone] St, [place], [address] [place], [id number], [place] tel:[phone] [facility] Other, February-1 Parete Consulting [facility] [place] Surveillance 6 Michaela. 620 W Provider: [place] [address], [place]SE [place], [facility]. [facility], [facility] [address]. [place] tel:[phone] St, [place], [address] [place], [id number], [place] tel:[phone] [facility] PT, Negative May-0 [facility] [place] 7 Sherrie. 620 W Provider: [place] [address], [place]SE [place], [facility]. [facility], [facility] [address]. [place] tel:[phone] St, [place], [address] [place], [id number], [place] tel:[phone] [facility] HIV, May-0 [facility] [place] ScreeningHIV 7- Sherrie. [address] [facility] [address], [place], [place], [facility], 620 [address]. [place] tel:[phone] St, [place], [address] [place], [id number], [place] tel:[phone] [facility] HIV, Screening Apr-2 Raphaelidis [facility] [place] 3- Katy. [address] Southern [address], [place], [place], [facility], [facility] [address]. [place] tel:[phone] St, [place], [address] [place], [id number], [place] tel:[phone] [facility] Vaginal Apr-2 [facility] [place] DischargeSTI 3- Katy. 620 [address] [place] Screening [address], [place], [facility], [facility] [address]. [place] tel:[phone] St, [place], [address] [place], [id number], [place] tel:[phone] [facility] HIV, Apr-0 Louise Ruth. [facility] [place] ScreeningHIV [address] [place] [facility]ing[facility], [address], [place], [place], [address]. [facility], [facility] tel:[phone] [place] [address], [place], [place], [id number], [place] tel:[phone] [facility] Screening for Apr-0 Louise Ruth. [facility] [place] other and [address] [place] Southern unspecified [address], [place], [place], [address]. [facility], [facility] conditionsSTI tel:[phone] [address] [place] [address], [place], [place], [id number], [place] tel:[phone] [facility] HIV, Mar-0 [facility] [place] ScreeningHIV Sherrie. [address] [facility] [address], [place], [facility], [facility] [address]. [place] tel:[phone] St, [place], [address] [place], [id number], [place] tel:[phone] [facility] BCM Other, Dec-0 [facility] [place] Surveillance Sherrie. 620 W Provider: [place] [address], [place]SE [place], [place], [facility]. [facility], [facility] [address]. [place] tel:[phone] St, [place], [address] [place], [id number], [place] tel:[phone] [facility] Fe-2 [facility] [place] Sherrie. [address], [place], [facility], [facility] [address]. [place] tel:[phone] St, [place], [address] [place], [id number], [place] tel:[phone] [facility] LABORATORY EXAM Oct- [facility] [place] NOS 6-201 Sherrie. [address] Southern [address], [place], [facility], 620 [address]. [place] tel:[phone] St, [place], [address] [place], [id number], [place] tel:[phone] [facility] LABORATORY EXAM Sep-0 Dani Miranda. [facility] [place] NOS 3-201 [address] [place] [address], [place], [place], [address]. [facility], 620 tel:[phone] [place] [address], [place], [place], [id number], [place] tel:[phone] [facility] LABORATORY EXAM Aug- [place] [facility] [place] NOS 3-201 Pavel. [address], [place], [facility], 620 [address]. [place] tel:[phone] St, [place], [address] [place], [id number], [place] tel:[phone] [facility] LABORATORY EXAM [facility] [place] NOS 1-201 Sherrie. [address] Southern [address], [place], [facility], 620 [address]. [place] tel:[phone] St, [place], [address] [place], [id number], [place] tel:[phone] [facility] LABORATORY EXAM Apr-0 Dani Miranda. [facility] [place] NOS 8-201 [address] [place] [address], [place], [place], [address]. [facility], 620 tel:[phone] [address] [place] [address] , [place], [place], [id number], [place] tel:[phone] [facility] LABORATORY EXAM Peng- [place] [facility] [place] NOS 2-201 Pavel. [address], [facility], [place], [facility], 620 [address]. [place] tel:[phone] St, [place], [address] [place], [id number], [place] tel:[phone] Family History Family Member Diagnosis Age At [...] information Payers Payer name Insurance type Covered constitution party ID Authorization(s) Mustapha CARRANZA [facility] CI [id number] Social History Type Description Quantity Date Captured [...] information Chief Complaint And Reason For Visit Most recent encounter only, dated '08/20/2019 15:00'. STI Testing No Symptoms (F) (chief complaint) Reason For Referral Reason For Referral No information Plan Of Treatment Date Type Action Status Goal Tobacco cessation counseling completed Goal Tobacco cessation counseling completed Goal Tobacco cessation counseling completed Goal Tobacco cessation counseling completed Goal Tobacco cessation counseling completed Goal Tobacco cessation counseling completed Appointment NIRALI LOPEZ BOOKED Appointment NIRALI LOPEZ BOOKED History Of Present Illness Encounter Date Complaint History Of Present Illness No information Functional Status Date Functional Assessment No information Medications Administered Medication Instructions Dosage Effective Dates (start - stop) Status Comments No information Instructions Date Instruction Additional Information No information Assessments Type Assessment Date assessment Human immunodeficiency virus [HIV] counseling assessment Encounter for screening for human immunodeficiency virus 2018 assessment Encntr screen for infections w sexl mode of transmiss Goals Health Concern Goal Type Priority Status Date No information Medical Equipment Description Device [place] Device Identifier Effective Dates (start - stop ) Status No information Mental Status Date Cognitive Assessment No information Health Concerns Observation Date No information Concern Status Date No information
--- OUTSIDE RECORDS SUMMARY | 2019-09-03 17:07 | XMS REPORT | Continuity of Care Document ---
:1980 Author Organization [facility] Address [address] [place] [address] Phone Care Team Providers Name Role Phone Nury Faustin NP Unavailable Unavailable [facility], NURSE OR MA [...] stop) Encounter for surveillance of injectable contraceptive Human immunodeficiency - virus [HIV] counseling Encounter for surveillance of injectable contraceptive Human immunodeficiency - virus [HIV] counseling Human immunodeficiency - virus [HIV] counseling Encounter for screening for - human immunodeficiency virus Encntr screen for infections w sexl mode of transmiss Encounter for oth general cnsl and advice on contraception Irregular [...] for surveillance of injectable contraceptive Encntr for manager gyn exam (general) (routine) w/o abn findings Encounter [...] for surveillance of injectable contraceptive Encntr for manager gyn exam (general) (routine) w/o abn findings BCM [...] (12/2016). LB Procedures Procedure Date INJECTION DEPO/CEFTRIAXONE INJECTION OR LAB ONLY VISIT EST PREVENTIVE COUNSELING, Under 8 Minutes OTHER Medical Services Contraceptive DEPO Results Test Name Date and Time Measure Units Reference Range Abnormal Flag Status Comments No information Advance Directives Directive Yes / No Effective Date File Name No information Encounters Encounter Practice Location Reason(s) Diagnoses Date Provider Providers Description For Visit Copied on Encounter [facility] Encounter for Roxie Arrington. Referring [facility] [place] surveillance of [address] Provider: Southern injectable [address], [place], [place], [address], [place], [address] [place], 620 man [place]. [address], [place], , [place], [place] virus [place]HIV] [place], [place] [address].Consu [id number], lting [place] Provider: tel:[phone] [place] [id number] [facility]. [facility] Encounter for Roxie Arrington. [facility] [address] Provider: Southern injectable [address], [place], [place], [address], White, [address] [place], 620 man [place]. [address], [place], St, [place], [place] virus [place]HIV] [place], [place] [address].Consu [id number], lting [place] Provider: tel:[phone] NURSE OR MADY 134597 [facility]. [facility] Human Louise Ruth. Referring [facility] [place] immunodeficienc [address] Provider: Rubio y virus [HIV] 9 St, [place], [place], [address]. Louise, [address] [place], 620 nter for tel:[phone] [place] [address] [address], [place], , [place], [address]. [place], immunodeficienc tel:[phone], y virusEncntr 489876 [place] screen for tel:[phone] infections w 177685 sexl mode of transmissEncoun ter for oth general cnsl and advice on contraceptionIr regular menstruation, unspecifiedPelv ic and perineal pain Planned [facility] Human Angie Referring [facility] [place] immunodeficienc Nirali. 620 Provider: Southern y virus [HIV] [address], Nirali Finger counselingFrequ [place], [place], Angie J, [address] [place], 620 [place] [address], [place]. [address] [place] micturitionEncn tel:[phone] St, [place], St, [place], [place] [address] [place], [address]. [place], infections w tel:[phone], sexl mode of [id number] [place] transmissCandid tel:[phone] iasis of vulva 581980 and vagina Planned [facility] Encounter for February- Parete Referring [facility] [place] surveillance of 2-201 Michaela. 620 W Provider: [facility] injectable [address], Michaela Finger contraceptive [place], [place], Parete, 620 [place], 620 [address]. [address] tel:+[phone] St, [place], St, [place], [address] [place], [address]. [place], tel:[phone], [id number] [place] lting tel:[phone] Provider: [id number] NURSE [place] [facility]. [facility] DysuriaEncntr Parete Referring [facility] [place] screen for 4-201 Michaela. 620 W Provider: [facility] infections w [address], Michaela Finger sexl mode of [place], [place], Parete, [address] [place], 620 transmissAnogen [address]. [address] ital (venereal) tel:+[phone] St, [place], St, [place], [place] [address] [place], [address]. [place], vulvae tel:[phone], 417929 [place] tel:[phone] [facility] Encounter for Dec- White Nury. Referring [facility] [place] surveillance of 0-201 [address] Provider: Southern injectable 9 St, [place], [place], [address], White, 620 [place], 620 [place]. [address], [place], St, [place], [address]. [place], [id number], [place] tel:[phone] [facility] Encntr for manager gyn Dec- Darnell [facility]erring [facility] exam (general) 1-201 Katy. 620 W Provider: [facility] (routine) w/o [address], Katy Finger abn [place], [place], Raphevaidis [facility], 620 findingsEncount [address]. , [address] er for tel:[phone] [address], St, [place], [place] [address] [place], [place], [place], injectable [address]. [id number], contraceptiveEn tel:[phone] [place] counter for oth 614212 tel:[phone] general cnsl 113612 and advice on contraception Planned [facility] Encounter for Parete Referring [facility] [place] surveillance of 4-201 Michaela. 620 W Provider: [facility] injectable [address], Michaela Finger contraceptive [place], [place], Parete, 620 [place], 620 [address]. [address] [place] tel:+[phone] St, [place], St, [place], [address] [place], [address]. [place], tel:[phone], [phone] [place] lting tel:[phone] Provider: [id number] NURSE [place] [facility]. [facility] Encounter for White Nury. Referring [facility] [place] surveillance of 5201 [address] Provider: [facility] injectable [address], [place], [place], [address], White, 620 [place], 620 [place]. [address], [place], St, [place], [address]. [place], [id number], [place] tel:[phone] [facility] Human Raphmeena Referring [facility] [place] immunodeficienc 0-201 Katy. 620 W Provider: [facility] y virus [HIV] [address], [place]y Finger counselingEncou [place], [place], Raphevaidis [facility], 620 [place] [address]. , [address] screening for tel:[phone], St, [place], human [address] [place], [place], [place], immunodeficienc [address]. [id number], y virus tel:[phone] [place] [phone] tel:[phone] lting [phone] Provider: NURSE [place] [facility]. [facility] Encounter for Raphaelidis Referring [facility] [place] surveillance of 7-201 Katy. 620 W Provider: [facility] injectable [address], Katy Finger contraceptive [place], Raphaelidis [facility], 620 [address]. , [address] tel:[phone], St, [place], [address] [place], [address]. [id number], tel:+[phone] [place] 449582 tel:[phone] Planned [facility] Frequency of Hemmer Referring [facility] [place] micturitionUrge [place] Provider: [facility] ncy of 8 Sueane. 620 Sueane Finger urinationEncntr [address], [place], 620 screen for [place], [place], [place], [place] [address], [place], sexl mode of tel:[phone], [place], [place]miss [address] [place], [place], [id number], [address]. [place] tel:[phone] tel:[phone] [facility] Encntr screen Raphaelidis Referring [facility] [place] for infections Katy. 620 W Provider: Southern w sexl mode of [address], Katy Finger transmissTinea [place], [place], Raphaelidis [facility], 620 cruris [address]. , [address] tel:[phone], St, [place], [address] [place], [address]. [id number], tel:+[phone] [place] 769553 tel:[phone] [facility] Encounter for Roxie Arrington. [facility] of [address] Provider: Southern injectable 8 St, [place], [place], [address], White, [address] [place] [address], 620 [place]. [address], [place], St, [place], [address].Consu [id number], lting [place] Provider: tel:[phone] [place] 226776 [facility]. [facility] Encounter for Mar-0 Roxie Arrington. [facility] of [address] Provider: Southern injectable [address] St, [place], [place], [address], White, 620 [facility], 620 [place]. [address], [place], St, [place], [address].Consu [id number], lting [place] Provider: tel:+[phone] NURSE OR MADY 432143 [facility]. [facility] Encounter for Barb Referring [facility] [place] surveillance of 8-201 Korin. 620 W Provider: Southern injectable [address], Korin Finger contraceptive [place], [place], Kornblum M [facility], 620 [address]. [address] tel:+[phone], St, [place], [address] [place], [address]. [id number], tel:+[phone] [place] [phone] tel:[phone] lting [phone] Provider: NURSE OR MADY [facility]. [facility] Human Roxie Arrington. Referring [facility] [place] immunodeficienc 0- [address] Provider: [facility] y virus [HIV] 7 St, [place], [place], [address], White, 620 [facility], [facility] nter for [place]. [address] surveillance of St, [place], St, [place], injectable [place], [place], contraceptiveEn [address].Consu [id number], counter for lting [place] screening for Provider: tel:+[phone] human NURSE OR MADY [id number] immunodeficienc [facility]PS[facility]. y virus Planned [facility] Human Dani Miranda. Referring [facility] [place] immunodeficienc 1 [address] Provider: [facility] y virus [HIV] 7 St, [place], [place], [address]. Lori Anaya [facility], 620 nter for tel:[phone] [place] [address] St, [place], injectable [place], [place], [place], contraceptive [address]. [id number], tel:+[phone] [place] 248887 tel:[phone] Planned [facility] Encntr screen Roxie Arrington. Consulting [facility] [place] for infections 6 [address] Provider: [facility] w sexl mode of 7 St, [place], [place] [address], [facility]PS[facility]. [facility], [address], [place], [place], [id number], [place] tel:[phone] Planned [facility] Human Memo-0 Borglum [facility] [place] immunodeficienc 7-201 Mohini. 620 Southern y virus [HIV] [address], Finger counselingEncou [place], [place], [facility], 620 [place] [address], [place]. [address] screening for tel:[phone] St, [place], [place] [address] [place], immunodeficienc [id number], y virusEncntr [place] screen for tel:[phone] infections w 355212 sexl mode of transmissEncoun ter for oth general cnsl and advice on contraceptionCa ndidiasis of vulva and vaginaPatient's noncompliance w oth medical treatment and regimen Planned [facility] Encounter for Peng-0 Darnell Referring [facility] [place] surveillance of 2- Katy. 620 W Provider: [facility] injectable [address], [place] Finger contraceptive [place], [place], Lori Anaya, [facility], [facility] [address]. [address] tel:+[phone], St, [place], [address] [place], [address]. [id number], tel:+[phone] [place] 266696 tel:[phone] [facility] Encounter for Mar-2 Roxie Arrington. Referring [facility] [place] surveillance of 4-201 [address] Provider: [facility] injectable [address] St, [place], [place] [address], Lori Anaya [facility], 620 [place]. [address], St, [place], [place], [address]. [id number], tel:[phone] [place] [phone] tel:[phone] lting [phone] Provider: NURSE [place] [facility]. [facility] Unspecified Mar-1 Raphaelidis [facility] [place] abdominal 7-201 Katy. 620 W [facility] painCandidiasis [address], Finger of vulva and [place], [place], [facility], 620 vagina [address]. [address] tel:+[phone] St, [place], [address] [place], [id number], [place] tel:[phone] [facility] Encounter for Borglum Referring [facility] [place] surveillance of Mohini. 620 Provider: Southern injectable [address], Paola Finger contraceptiveEn [place], [place], Angella [place], 620 [place] [address], [place]. [address] test, tel:[phone], St, [place], result negative [address] [place], [address]. [id number], tel:[phone] [place] [phone] tel:[phone] lting [phone] Provider: NURSE [place] [facility]. [facility] Candidiasis of Guggino [facility] [place] vulva and Brittany. Southern vaginaEncounter 6 [address] Finger for oth general St, [place], [facility], 620 [place], [address], [address] on [place]. [address], [place], contraceptionRa tel:[phone] [place], sh and other [id number], nonspecific [place] skin eruption tel:[phone] Planned [facility] Frequency of White Nury. [facility] [place] micturitionNoni [address] Southern nflammatory 6 , [place], [place], [address], [facility], 620 vagina, [place]. [address] unspecifiedEnco [facility], unter for [place], surveillance of [id number], injectable [place] contraceptiveEn tel:[phone] cntr screen for 392429 infections w sexl mode of transmiss Planned [facility] Encounter for Borglum Referring [facility] surveillance of Mohini. 620 Provider: Southern injectable [address], Paola Finger contraceptive [place], Angella [place], 620 [address], [place]. [address] tel:[phone], St, [place], [address] [place], [address]. [id number], tel:[phone] [place] [phone] tel:[phone] lting [phone] Provider: NURSE [place] [facility]. [facility] Encounter for Borglum [facility] [place] surveillance of [place]. [facility] Southern injectable [address], Finger contraceptivePe [place], [place], [facility], [facility] rsonal history [address], [place]. [address] of oth diseases tel:[phone] St, [place], of the female [address] [place], genital [id number], tractHerpesvira [place] l infection of tel:[phone] urogenital 531829 system, unspecifiedObes ity, unspecifiedToba cash accountant use Planned [facility] Encounter for Borglum Referring [facility] surveillance of [place]. [facility] Provider: Southern injectable [address], Paola Finger contraceptive [place], [place], Lori R, [facility], [facility] [address], [place]. [address] tel:+[phone] [address], St, [place], [address] [place], [address]. [id number], tel:[phone] [place] [phone] tel:[phone] lting [phone] Provider: NURSE [place] [facility]. [facility] Encounter for Borglum Consulting [facility] test, [place]. [facility] Provider: Southern result negative [address], NURSE [place], PPS[facility]. [place] [address], [place]. [address] tel:+[phone] St, [place], [address] [place], [id number], [place] tel:[phone] Planned [facility] Encounter for Roxie Arrington. Consulting [facility] test, [address] Provider: Southern result negative 6 St, [place], [place], [address], [facility]PS[facility]. [place] [address], [place], [place], [id number], [place] tel:[phone] [facility] Candidiasis of [place] [facility] vulva and [facility] vagina 6 Sueane. [address], [facility], [address] [place] [address], [address], [place], tel:[phone] [place], [id number], [place] tel:[phone] Planned [facility] Encntr screen Peng- Roxie Arrington. Referring [facility] [place] for infections 3-201 [address] Provider: Southern w sexl mode of 6 St, [place], [place], [address], Lori R, [facility], [address] ter for US. [address] W [address] surveillance of [address], St, [place], injectable [place], [place], [place], contraceptive [address]. [id number], tel:[phone] [place] [phone] tel:[phone] lting [phone] Provider: NURSE [place] [facility]. [facility] Candidiasis of Peng-0 Hemmer [facility] [place] vulva and 6 [place] Southern vagina 6 Sueane. [address], [facility], 620 [place], [place], [address], [place], tel:[phone] [place], [id number], [place] tel:[phone] Planned [facility] Candidiasis of February- Roxie Arrington. [facility] [place] vulva and 0-201 [address] Southern vaginaEncounter 6 St, [place], [place], [address], [facility], 620 cnsl and advice [place]. [address] [place] on [address], [place], contraceptionEn [place], counter for [id number], surveillance of [place] injectable tel:[phone] contraceptive [phone] Planned [facility] Human February- Roxie Arrington. Consulting [facility] [place] immunodeficienc 9-201 [address] Provider: [facility] y virus [HIV] 6 , [place], [place], [address], PPSFL. [facility], 620 nter for [place]. [address] screening for [address], [place], human [place], immunodeficienc [id number], y virus [place] tel:[phone] [facility] Candidiasis of Mar-3 Ottoson [facility] [place] vulva and 1 Pavel. 620 Southern vaginaAnogenita [address], Finger l (venereal) [place], [place], [place], 620 warts [address]. [address] tel:+[phone] St, [place], [address] [place], [id number], [place] tel:[phone] [facility] Frequency of Mar-1 Parete [facility] [place] micturitionCand . 620 W Southern idiasis of [address], Finger vulva and [place], [place], 620 vaginaAnogenita [address]. [address] l (venereal) tel:[phone] St, [place], warts [address] [place], [id number], [place] tel:[phone] [facility] Anogenital Louise Ruth. [facility] [place] (venereal) [address] Southern wartsCandidiasi 6 St, [place], [place], [address]. [facility], 620 vagina tel:[phone], [place], [place], [id number], [place] tel:[phone] [facility] Oth cond assoc Dec- Kornblum [facility] [place] w female - Korin. 620 W Southern genital organs [address], Finger and menstrual [place], [place], [facility], 620 cycle [address]. [address] [place] tel:[phone] St, [place], [address] [place], [id number], [place] tel:[phone] [facility] Encounter for Kornblum [facility] [place] surveillance of Korin. 620 W Southern injectable [address], Finger contraceptiveNo [place], [place], [facility], 620 ninflammatory [address]. [address] disorder of tel:[phone] St, [place], vagina, [address] [place], unspecified [id number], [place] tel:[phone] [facility] Anogenital Sep- Raphaelidis [facility] [place] (venereal) Katy. 620 W Southern wartsCandidiasi [address], Finger s of vulva and [place], [place], [facility], 620 vagina [address]. [address] [place] tel:[phone] St, [place], [address] [place], [id number], [place] tel:[phone] [facility] Encounter for Sep- Parete [facility] [place] test, 2-. 620 W Southern result [address], Finger negativeFrequen [place], [place], [facility], 620 [place] [address]. [address] micturitionAnog tel:+[phone] St, [place], enital [address] [place], (venereal) [id number], wartsCandidiasi [place] s of vulva and tel:[phone] vaginaEncntr 721050 screen for infections w sexl mode of transmiss Planned [facility] Encounter for Nov- Ese Mason. Referring [facility] [place] surveillance of 3 620 W. Provider: Southern injectable [address] Isabella Ese Finger contraceptive [place], [place], C, 620 W. [facility], [facility] [address] [place] tel:[phone] [place], [place], St, [place], [address]. [place], tel:[phone], [id number] [place] lting tel:[phone] Provider: [id number] NURSE [place] [facility]. [facility] Encntr for [facility] - Katy. 620 W Southern (routine) w/o [address], Finger abn findings [place], [facility], [facility] [address]. [address] tel:+[phone] St, [place], [address] [place], [id number], [place] tel:[phone] Planned [facility] BCM Other, Sep-0 [facility] Referring [facility] Surveillance 2 Sherrie. 620 W Provider: Southern [address], Sherrie F[place], [place], [facility], [facility], [facility] [address]. [address] tel:[phone], St, [place], [address] [place], [address]. [id number], tel:[phone] [place] 286604 tel:[phone] [facility] STI Screening May-0 [facility] 5-201 Sherrie. 620 W Southern [address], Finger [place], [facility], [facility] [address]. [address] [place] tel:[phone] St, [place], [address] [place], [id number], [place] tel:[phone] [facility] STI Hemmer [facility] [place] ScreeningYeast- [place] Southern vulvovaginal 5 Sueane. [address], [place], 620 [place], [place], [address] [address], [place], tel:[phone] [place], [id number], [place] tel:[phone] [facility] PT, Negative Mar- Alejandro Referring [facility] [place] Oni. 135 Provider: Southern [address], Oni Finger [place], [place], Alejandro, [facility], 620 [address], [place]. [address] tel:[phone] St, St, [place], [address] [place], [address]. [id number], tel:[phone] [place] 685796Vodnq tel:[phone] lting [phone] Provider: NURSE [place] [facility]. [facility] BCM Other, Avidano Referring [facility] SurveillancePel Sherrie. 620 W Provider: Southern lorena Pain - [address], Sherrie Finger NOSYeast-vulvov [place], [place], [facility], 620 aginal [address]. 620 W [address] tel:[phone], , [place], [address] [place], [address]. [id number], tel:[phone] [place] 623560 tel:[phone] Planned [facility] BCM Other, Dani Miranda. Referring [facility] SurveillanceSTI [address] Provider: Southern Screening [address], [place], [place], [address]. Louise, 620 [facility], 620 tel:[phone] [address], [place], St, [place], [address]. [place], tel:[phone], 406766 [place] tel:[phone] Planned [facility] BCM Other, Avidano Referring [facility] [place] Surveillance Sherrie. 620 W Provider: Southern [address], Sherrie [place], [place], [facility], [facility], 620 [address]. 620 W [address] [place] tel:[phone], St, [place], [address] [place], [address]. [id number], tel:[phone] [place] [phone] tel:[phone] [facility] [phone] Provider: NURSE [place] [facility]. [facility] Urinary Sep-2 Parete Referring [facility] [place] frequencyBCM 5-201 Michaela. 620 W Provider: Southern Other, [address], Michaela Finger Surveillance [place], Parete, [address] [place] [address], [facility] [address]. [address] [place] [place] tel:[phone] St, [place], St, [place], [address] [place], [address]. [place], tel:[phone], 370903 [place] tel:[phone] [facility] Memo-3 Lori [facility] [place] 0-201 Paola. 620 W Southern [address], F[place], [place], [facility], [facility] [address]. [address] [place] tel:[phone] St, [place], [address] [place], [id number], [place] tel:[phone] Planned [facility] Yeast-vulvovagi Memo-2 Avidano [facility] [place] nal 3-201 Sherrie. 620 W Southern [address], [place], [place], [facility], [facility] [address]. [address] [place] tel:[phone] St, [place], [address] [place], [id number], [place] tel:[phone] [facility] HIV, Apr-1 Raphaelidis [facility] [place] ScreeningHIV 8 Katy. 620 W Southern Counseling [address], Finger [place], [place], [facility], [facility] [address]. [address] [place] tel:[phone] St, [place], [address] [place], [id number], [place] tel:[phone] Planned [facility] BCM Other, Apr- Raphaelidis Referring [facility] 8 Katy. [address] Provider: Southern [address], [place], [place], [facility], [facility] [address]. [address] tel:[phone] [facility] [address], St, [place], [address] [place], [place], [address]. [id number], tel:[phone] tel:[phone] [facility] [phone] Provider: [place] [facility]. [facility] HIV, February-2 [facility] [place] ScreeningHIV Michaela. [address] [facility] [address], [place], [place], [facility], [address] tel:[phone] , [place], [address] [place], [id number], [place] tel:[phone] [facility] BVYeast-vulvova February-2 [facility] [place] ginal 8 [place]. [address], [place], [place], [facility], [facility] [address]. [address] tel:[phone] , [place], [address] [place], [id number], [place] tel:[phone] [facility] BCM Other, February- [facility] [place] Surveillance Michaela. [address] Provider: [place] [address], [place], [place], [facility]. [facility], [facility] [address]. [address] tel:[phone] , [place], [address] [place], [id number], [place] tel:[phone] [facility] PT, Negative May-0 [facility] Sherrie. [address] Provider: [place] [address], [place], [facility]. [facility], [facility] [address]. [address] tel:[phone] , [place], [address] [place], [id number], [place] tel:[phone] [facility] HIV, May-0 [facility] [place] ScreeningHIV Sherrie. [address] [facility] [address], [place], [place], [facility], [facility] [address]. [address] tel:[phone] , [place], [address] [place], [id number], [place] tel:[phone] [facility] HIV, Screening Apr-2 [facility] [place] Katy. [address], [place], [place], [facility], [facility] [address]. [address] [place] tel:[phone] St, [place], [address] [place], [id number], [place] tel:[phone] [facility] Vaginal Apr-2 [facility] [place] DischargeSTI Katy. [address] [facility] Screening [address], [place], [place], [facility], [facility] [address]. [address] [place] tel:[phone] St, [place], [address] [place], [id number], [place] tel:[phone] [facility] HIV, Apr-0 Louise Ruth. [facility] [place] ScreeningHIV [address] [facility], [address], [place], [place], [address]. [facility], [facility] tel:[phone], [place], [place], [id number], [place] tel:[phone] [facility] Screening for Apr-0 Louise Ruth. [facility] [place] other and [address] unspecified [address], [place], [place], [address]. [facility], [facility] conditionsSTI tel:[phone] [address], [place], [place], [id number], [place] tel:[phone] [facility] HIV, Mar-0 [facility] [place] ScreeningHIV Sherrie. [address] [facility] [address], [place], [place], [facility], [facility] [address]. [address] tel:[phone] St, [place], [address] [place], [id number], [place] tel:[phone] [facility] BCM Other, Mar-0 [facility] [place] Surveillance Sherrie. [address] Provider: [facility] [address], [place], [place], P[facility]. [place] [address]. [address] tel:[phone] St, [place], [address] [place], [id number], [place] tel:[phone] [facility] Feb-2 [facility] [place] Sherrie. [address], [place], [place], [facility], [address] [address]. [address] tel:[phone] St, [place], [address] [place], [id number], [place] tel:[phone] [facility] LABORATORY EXAM Lev-0 [facility] [place] NOS 6-201 Sherrie. [address], [place], [place], [facility], [address] [address]. [address] tel:[phone] St, [place], [address] [place], [id number], [place] tel:[phone] [facility] LABORATORY EXAM Dec-0 Louise Ruth. [facility] [place] NOS 3-201 [address], [place], [place], [address]. [facility], 620 tel:[phone], [place], [place], [id number], [place] tel:[phone] [facility] LABORATORY EXAM Nov- [facility] [place] NOS 3-201 [place]. [address], [place], [place], [facility], [address] [address]. [address] tel:[phone] St, [place], [address] [place], [id number], [place] tel:[phone] [facility] LABORATORY EXAM Jul-2 [facility] [place] NOS 1-201 Sherrie. [address], [place], [place], [facility], [address] [address]. [address] tel:[phone] St, [place], [address] [place], [id number], [place] tel:[phone] [facility] LABORATORY EXAM Apr-0 Louise Ruth. [facility] [place] NOS 8-201 [address], [place], [place], [address]. [facility], 620 tel:[phone], [place], [place], [id number], [place] tel:[phone] [facility] LABORATORY EXAM Peng- [facility] [place] NOS 2-201 [place]. [address], [place], [place], [facility], [address] [address]. [address] tel:[phone] St, [place], [address] [place], [id number], [place] tel:[phone] Family History Family Member Diagnosis Age At [...] name Insurance type Covered republican ID Authorization(s) Mustapha CARRANZA [facility] [id number] Social History Type Description Quantity Date Captured [...] Encounter for surveillance of injectable contraceptive assessment Human immunodeficiency virus [HIV] counseling Goals Health Concern Goal Type Priority Status Date No information Medical Equipment Description Device Bluford Device Identifier Effective Dates (start - stop ) Status No information Mental Status Date Cognitive Assessment No information Health Concerns Observation Date No information Concern Status Date No information
--- OUTSIDE RECORDS SUMMARY | 2019-09-03 17:07 | XMS REPORT | Continuity of Care Document ---
:1980 Author Organization [facility] Address [address] [place] [address] Phone Care Team Providers Name Role Phone Nury Faustin NP Unavailable Unavailable Allergies, Adverse Reactions, Alerts Substance [...] for surveillance of injectable contraceptive Encntr for rn gynecology exam (general) (routine) w/o abn findings Encounter [...] for surveillance of injectable contraceptive Encntr for rn gynecology exam (general) (routine) w/o abn findings BCM [...] 02/2012); MRSA (12/2016). LB Procedures Procedure Date No information Results Test Name Date and Time Measure Units Reference Range Abnormal Flag Status Comments No information Advance Directives Directive Yes / No Effective Date File Name No information Encounters Encounter Practice Location Reason(s) Diagnoses Date Provider Providers Description For Visit Copied on Encounter [facility] Roxie Arrington. [facility] [place] [address], [place], [place], [address], [place], [address], [place], [place], [id number], [place] tel:[phone] [facility] Human [facility] Referring [facility] [place] immunodeficienc Katy. 620 W Provider: [facility] y virus [HIV] [address], [place] counselingEncou [place], Raphaelidis [facility], 620 [place] [address]. , [address] screening for tel:+[phone] [address], St, [place], [place] [address] [place], [place] [address]. [id number], y virusEncntr tel:[phone] [place] screen for 449900 tel:+[phone] infections w [phone] sexl mode of transmiss [facility] Encounter for [facility]. [facility] surveillance of [address] Provider: Southern injectable [address], [place], [place], [address], [place], 620 [place], 620 man [place]. [address]c [address], [place], St, [place], [place] virus [place]HIV] [place], counseling [address].Consu [id number], lting [place] Provider: tel:[phone] [place] [id number] [facility] Encounter for Roxie Arrington. [facility] surveillance of [address] Provider: Southern injectable [address], [place], [place], [address], White, 620 [place], 620 man [place]. [address]ienc [address], [place], St, [place], [place] virus [place]HIV] [place], [place] [address].Consu [id number], lting [place] Provider: tel:[phone] [place] [phone] [facility]. [facility] Human Louise Ruth. Referring [facility] [place] immunodeficienc 7 [address] Provider: Rubio y virus [HIV] 9 St, [place], [place], [address]. Louise, 620 [facility], 620 nter for tel:[phone] [place] [address] [address], [place], St, [place], [place], [address]. [place], immunodeficienc tel:[phone], y virusEncntr 269091 [place] screen for tel:+[phone] infections w 406481 sexl mode of transmissEncoun ter for oth general cnsl and advice on contraceptionIr regular menstruation, unspecifiedPelv ic and perineal pain [facility] Human Peng- Angie Referring [facility] [place] immunodeficienc 5- Nirali. 620 Provider: Rubio y virus [HIV] [address], Nirali [place] counselingFrequ [place], Angie J, 620 [facility], 620 [place] [address], [place]. W [address] W [place] micturitionEncn tel:+[phone] St, [place], St, [place], [place] [address] [place], [address]. [place], infections w tel:[phone], sexl mode of [id number] [place] transmissCandid tel:[phone] iasis of vulva [phone] and vagina [facility] Encounter for Parete Referring [facility] [place] surveillance of 2-201 Michaela. 620 W Provider: Southern injectable [address], [place] contraceptive [place], Parete, 620 [facility], 620 [address]. [address] W [address]ut[address] tel:+[phone] St, [place], St, [place], [address] [place], [address]. [place], tel:[phone], [id number] [place] lting tel:[phone] Provider: [id number] [place] [facility] DysuriaEncntr Parete Referring [facility] [place] screen for 4-201 Michaela. 620 W Provider: Southern infections w [address], Michaela [place] sexl mode of [place], Parete, 620 [place], 620 transmissAnogen [address]. W [address] W Akutan ital (venereal) tel:+[phone] St, [place], St, [place], [place] [address] [place], [address]. [place], vulvae tel:[phone], [phone] [place] tel:[phone] [facility] Encounter for Roxie Arrington. Referring [facility] [place] surveillance of 0-201 [address] Provider: [facility] injectable 9 St, [place], [place], [address], White, 620 [place], 620 [place], [place], [place], [place], [address]. [place], [id number], [place] tel:[phone] [facility] Encntr for rn gynecology Sep- [facility] Referring [facility] [place] exam (general) 1- Katy. 620 W Provider: [facility] (routine) w/o [address], [place] abn [place], Raphaelidis [place], 620 findingsEncount [address]. , [address] W [address] er for tel:+[address], St, [place], [place] [address] [place], [place], injectable [address]. [id number], contraceptiveEn tel:+[phone] [place] counter for oth 389270 tel:+[phone] general cnsl 255902 and advice on contraception [facility] Encounter for Parete Referring [facility] [place] surveillance of 4-201 Michaela. 620 W Provider: Southern injectable [address], [place]a [place] contrace[place], Parete, 620 [place], 620 [address]. [address] W [address] tel:+[phone] St, [place], St, [place], [address] [place], [address]. [place], tel:[phone], [id number] [place] lting tel:[phone] Provider: [id number] [place] [facility] Encounter for Jul- Roxie Arrington. Referring [facility] [place] surveillance of 5-201 [address] Provider: Southern injectable [address], [place], [place], [address], [place], 620 [place], 620 [place]. [address], [place], [place], [place], [address]. [place], [id number], [place] tel:[phone] [facility] Human Darnell Referring [facility] [place] immunodeficienc 0-201 Katy. 620 W Provider: [facility] y virus [HIV] [address], [place] counselingEncou [place], [facility], 620 [place] [address]. , [address] screening for tel:+[phone] [address], St, [place], [place] [address] [place], [place] [address]. [id number], y virus tel:+[phone] [place] [phone] tel:[phone] lting [phone] Provider: [place]SE [place] [facility] Encounter for Darnell Referring [facility] [place] surveillance of Katy. 620 W Provider: [facility] injectable [address], [place] contraceptive [place], [facility], 620 [address]. , [address] tel:+[phone] [address], St, [place], [address] [place], [address]. [id number], tel:+[phone] [place] 926298 tel:[phone] [facility] Frequency of Hemmer Referring [facility] [place] [facility] Provider: [facility] ncy of 8 Sueane. 620 Sueane [place] urinationEncntr [address], Hemmer [facility], 620 screen for [place], [facility], [place] [address], [place], sexl mode of tel:+[phone] [address], [place], transmiss [address] [place], [place], [id number], [address]. [place] tel:[phone] tel:[phone] [facility] Encntr screen Darnell Referring [facility] [place] for infections 1- Katy. 620 W Provider: [facility] w sexl mode of [address], [place] transmissTinea [place], [facility], 620 cruris [address]. , [address] tel:+[phone] [address], St, [place], [address] [place], [address]. [id number], tel:+[phone] [place] 991117 tel:[phone] [facility] Encounter for Roxie Arrington. Referring [facility] [place] surveillance of [address] Provider: Southern injectable [address] St, [place], [place], [address], White, 620 [place], 620 [place]. [address], [place], St, [place], [address].Consu [id number], lting [place] Provider: tel:[phone] [place] 819797 [facility]. [facility] Encounter for Dec-0 Roxie Arrington. Referring [facility] [place] surveillance of [address] Provider: Southern injectable [address], [place], [place], [address], White, 620 [place], 620 [place]. [address], [place], St, [place], [address].Consu [id number], lting [place] Provider: tel:[phone] [place] [address]554 [facility]. [facility] Encounter for Kornblum [facility]erring [facility] surveillance of Korin. 620 W Provider: Southern injectable [address], Korin [place] contrace[place], Kornblum M, [place], 620 [address]. [address] tel:+[phone] [address], St, [place], [address] [place], [address]. [id number], tel:+[phone] [place] [phone] tel:[phone] lting [phone] Provider: [place]SE [place] [facility]. [facility] Human Jul- Roxie Arrington. Referring [facility] [place] immunodeficienc 0- [address] Provider: [facility] y virus [HIV] 7 St, [place], [place], [address], White, 620 [place], 620 nter for [place]. W [address] W [address] surveillance of St, [place], St, [place], injectable [place], [place], contraceptiveEn [address].Consu [id number], counter for lting [place] screening for Provider: tel:[phone] human [place] 054802 immunodeficienc [facility]. y virus [facility] Human Dani Miranda. Referring [facility] [place] immunodeficienc [address] Provider: [facility] y virus [HIV] 7 St, [place], [place], [address]. Angella Boone, 620 nter for tel:[phone] [place] [place] [address], St, [place], injectable [place], contraceptive [address]. [id number], tel:[phone] [place] 308395 tel:[phone] [facility] Encntr screen Apr- Roxie Arrington. [facility]ing [facility] for infections - [address] Provider: [facility] w sexl mode of 7 St, [place], [place], [address], [facility]. [facility], [address], [place], [place], [id number], [place] tel:[phone] [facility] Human Apr- Borglum [facility] [place] immunodeficienc 7- Mohini. 620 Southern y virus [HIV] [address], [place] counselingEncou [place], [facility], 620 [place] [address], [place]. [address] screening for tel:[phone] St, [place], [place] [address] [place], immunodeficienc [id number], y virusEncntr [place] screen for tel:[phone] infections w 089910 sexl mode of transmissEncoun ter for oth general cnsl and advice on contraceptionCa ndidiasis of vulva and vaginaPatient's noncompliance w oth medical treatment and regimen [facility] Encounter for Peng-0 Raphaelidis Referring [facility] surveillance of 2-201 Katy. 620 W Provider: [facility] injectable [address], [place] contrace[place], Angella Boone, 620 [address]. [address] tel:[phone], St, [place], [address] [place], [address]. [id number], tel:[phone] [place] 676140 tel:[phone] [facility] Encounter for Dec-2 White Nury. Referring [facility] [place] surveillance of [address] Provider: Southern injectable [address] St, [place], [place], [address], Lori Anaya [facility], 620 US. [address], St, [place], [place], [address]. [id number], tel:[phone] [place] [phone] tel:[phone] lting [phone] Provider: [place] [facility]. [facility] Unspecified Dec- Raphaelidis [facility] [place] abdominal 7- Katy. 620 W Southern painCandidiasis [address], [place] of vulva and [place], [facility], 620 vagina [address]. W [address] tel:[phone] St, [place], [address] [place], [id number], [place] tel:[phone] [facility] Encounter for Borglum Referring [facility] [place] surveillance of Mohini. 620 Provider: Southern injectable [address], [place] contraceptiveEn [place], Lori Anaya [facility], 620 [place] [address], [place]. 620 W [address] test, tel:[phone], St, [place], result negative [address] [place], [address]. [id number], tel:[phone] [place] [phone] tel:[phone] lting [phone] Provider: [place] [facility]. [facility] Candidiasis of Guggino [facility] [place] vulva and Brittany. [facility] vaginaEncounter 6 [address] [place] for oth general St, [place], [place], 620 [place], [address], [address] on [place]. St, [place], contraceptionRa tel:[phone] [place], sh and other [id number], nonspecific [place] skin eruption tel:[phone] [facility] Frequency of Nov-2 White Nury. [facility] [place] micturitionNoni [address], [place], [place], [address], [place], 620 vagina, [place]. W [address], [place], unter for [place], surveillance of [id number], injectable [place] contraceptiveEn tel:[phone] cntr screen for 093024 infections w sexl mode of transmiss [facility] Encounter for Borglum Referring [facility] [place] surveillance of [place]. 620 Provider: [facility] injectable [address], [place] contraceptive [place], Angella Boone, 620 [address], [place]. [address] W [address] tel:[phone], St, [place], [address] [place], [address]. [id number], tel:[phone] [place] [phone] tel:[phone] lting [phone] Provider: NURSE [place] MADY [facility]. [facility] Encounter for Borglum [facility] [place] surveillance of [place]. Southern injectable [address], [place] contraceptivePe [place], [facility], 620 rsonal history [address], [place]. [address] of oth diseases tel:[phone] St, [place], of the female [address] [place], genital [id number], tractHerpesvira [place] l infection of tel:[phone] urogenital [phone] system, unspecifiedObes ity, unspecifiedToba account planner use [facility] Encounter for Borglum [facility]erring [facility] surveillance of [place]. Provider: [facility] injectable [address], [place] contrace[place], Angella Boone, [facility] [address], [place]. [address] W [address] tel:+[phone] [address], St, [place], [address] [place], [address]. [id number], tel:[phone] [place] [phone] tel:[phone] lting [phone] Provider: NURSE [place] MADY [facility]. [facility] Encounter for Borglum Consulting [facility] [place] test, [place]. [facility] Provider: [facility] result negative [address], NURSE [place]ADY [place], [facility]. [place] [address], [place]. W [address] tel:[phone] St, [place], [address] [place], [id number], [place] tel:[phone] [facility] Encounter for Roxie Arrington. Consulting [facility] test, 2- [address] Provider: [facility] result negative 6 [facility], [place], [address], [facility]. [facility], [facility] US. [address], [place], [place], [id number], [place] tel:[phone] [facility] Candidiasis of Peng-2 Hemmer [facility] [place] vulva and 4 [place]reau Southern vagina 6 Sueane. 620 [place] [address] , [facility], [address] [place] [address], [place], [address] [address]. [facility], tel:[phone] [place], [id number], [place] tel:[phone] [facility] Encntr screen Mar- Roxie Arrington. Referring [facility] [place] for infections 3 [address] Provider: Southern w sexl mode of 6 [facility], [place] [address], Lori R, [facility], [facility] ter for US. 620 W W [address] surveillance of [address], , [place], injectable [place], [place], contraceptive [address]. [id number], tel:[phone] [place] [phone] tel:[phone] lting [phone] Provider: [place]SE [place] [facility]. [facility] Candidiasis of Peng-0 Hemmer [facility] [place] vulva and 6 [place] Southern vagina 6 Sueane. 620 [place] [address] , [facility], [address] [place] [address], [place], [address], [place], tel:[phone] [place], [id number], [place] tel:[phone] [facility] Candidiasis of February- Roxie Arrington. [facility] [place] vulva and 0-201 [address] Southern vaginaEncounter 6 , [place], [place], [address], [facility], [facility] cnsl and advice [place]. W [address] on St, [place], contraceptionEn [place], counter for [id number], surveillance of [place] injectable tel:[phone] contraceptive [phone] [facility] Human Roxie Arrington. Consulting [facility] [place] immunodeficienc [address] Provider: [facility] y virus [HIV] 6 St, [place], [place], [address], [facility]. [facility], 620 nter for [place]. W [address] screening for St, [place], human [place], immunodeficienc [id number], y virus [place] tel:[phone] [facility] Candidiasis of Dec-3 Ottoson [facility] [place] vulva and Pavel. 620 Southern vaginaAnogenita [address], [place] l (venereal) [place], [facility], 620 warts [address]. W [address] tel:[phone] St, [place], [address] [place], [id number], [place] tel:[phone] [facility] Frequency of Dec- Parete [facility] [place] micturitionCand Michaela. 620 W Southern idiasis of [address], [place] vulva and [place], [facility], 620 vaginaAnogenita [address]. [address] l (venereal) tel:[phone] St, [place], warts [address] [place], [id number], [place] tel:[phone] [facility] Anogenital Dani Miranda. [facility] [place] (venereal) [address] wartsCandidiasi [address], [place], [place], [address]. [facility], 620 vagina tel:[phone], [place], [place], [id number], [place] tel:[phone] [facility] Oth cond assoc Dec- Kornblum [facility] [place] w female - Okrin. 620 W Southern genital organs [address], [place] and menstrual [place], [facility], 620 cycle [address]. W [address] tel:[phone] St, [place], [address] [place], [id number], [place] tel:[phone] [facility] Encounter for Kornblum [facility] [place] surveillance of Korin. 620 W Southern injectable [address], [place] contraceptiveNo [place], [place], [place], 620 ninflammatory [address]. [address] disorder of tel:+[phone] St, [place], vagina, [address] [place], unspecified [id number], [place] tel:[phone] [facility] Anogenital Dec- Raphmeena [facility] [place] (venereal) 8- Katy. 620 W Southern wartsCandidiasi [address], [place] s of vulva and [facility], [facility] vagina [address]. W [address] tel:+[phone] St, [place], [address] [place], [id number], [place] tel:[phone] [facility] Encounter for Parete [facility] [place] test, 2. 620 W Southern result [address], [place] negativeFrequen [place], [place], [facility], 620 [place] [address]. [address] micturitionAnog tel:+[phone] St, [place], enital [address] [place], (venereal) [id number], wartsCandidiasi [place] s of vulva and tel:[phone] vaginaEncntr 886678 screen for infections w sexl mode of transmiss [facility] Encounter for Eselaya Mason. Referring [facility] [place] surveillance of 620 W. Provider: [facility] injectable [address] Isabella Mulligan [place] contraceptive [place], [place], C, 620 W. [facility], [facility] [address] W [address] tel:+[phone] [place], [place], St, [place], [address]. [place], tel:[phone], 823170Rhadx [place] lting tel:[phone] Provider: [id number] [place] [facility]. [facility] Encntr for rn gynecology Jul- Raphmeena [facility] [place] exam (general) 5- Katy. 620 W Southern (routine) w/o [address], [place] abn findings [place], [facility], [facility] [address]. W [address] tel:+[phone] St, [place], [address] [place], [id number], [place] tel:[phone] [facility] BCM Other, Sep-0 Avidano [facility]erring [facility] Surveillance 2-201 Sherrie. 620 W Provider: Southern [address], Sherrie [place], [facility], 620 [address]. 620 W W [address] tel:[phone], St, [place], [address] [place], [address]. [id number], tel:[phone] [place] 878744 tel:[phone] [facility] STI Screening May- [facility] [place] 5-201 Sherrie. 620 W Southern [address], [place], [facility], 620 [address]. W [address] tel:[phone] St, [place], [address] [place], [id number], [place] tel:[phone] [facility] STI Hemmer [facility] [place] ScreeningYeast- 3 [place]au Southern vulvovaginal 5 Sueane. [address], [facility], 620 [place], [address], [place], tel:[phone] [place], [id number], [place] tel:[phone] [facility] PT, Negative Peng- Alejandro [facility]erring [facility] 3 Oni. 135 Provider: Southern [address], Oni [place], [place], [facility], 620 [address], [place]. [address] tel:[phone] St, St, [place], [address] [place], [address]. [id number], tel:[phone] [place] 187708Tytxn tel:[phone] lting [phone] Provider: [place]SE [place] [facility]. [facility] BCM Other, [facility] Referring [facility] SurveillancePel 4201 Sherrie. 620 W Provider: Southern lorena Pain - [address], Sherrie [place] NOSYeast-vulvov [place], [facility], [facility], 620 aginal [address]. 620 W W [address] tel:[phone], St, [place], [address] [place], [address]. [id number], tel:+[phone] US 253417 tel:[phone] [facility] BCM Other, Dec- Louise Ruth. Referring [facility] - 620 W [address] Provider: [facility] Screening [address], [place], [place], [address]. Louise, 620 [facility], 620 tel:[phone] [address], [place], [place], [place], [address]. [place], tel:[phone], 843528 [place] tel:[phone] [facility] BCM Other, Avidano Referring [facility] [place] Surveillance 2- Sherrie. 620 W Provider: Southern [address], Sherrie [place], [place], [facility], [facility], 620 [address]. 620 W W [address] tel:+[phone] [address], St, [place], [address] [place], [address]. [id number], tel:[phone] [place] 371595Cauhh tel:[phone] lting [phone] Provider: [place]SE [place] [facility]. [facility] Urinary Sep-2 Parete Referring Parenthood [facility] Michaela. 620 W Provider: [facility] Other, [address], Michaela [place] Surveillance [place], Parete, 620 [facility], [facility] [address]. W [address] W [address]utan tel:+[phone] St, [place], St, [place], [address] [place], [address]. [place], tel:[phone], 353639 [place] tel:[phone] Planned [facility] Apr-3 Lori [facility] [place] 0-201 Paola. 620 W Southern [address], [place], [facility], [facility] [address]. W [address] tel:[phone] St, [place], [address] [place], [id number], [place] tel:[phone] [facility] Yeast-vulvovagi Apr-2 [facility] [place] nal 3-201 Sherrie. [address], [place], [facility], [facility] [address]. [address] tel:[phone] , [place], [address] [place], [id number], [place] tel:[phone] [facility] HIV, [facility] ScreeningILV Katy. [address] Counseling [address], [facility], [place], [facility], [address] [address]. [address] tel:[phone] , [place], [address] [place], [id number], [place] tel:[phone] [facility] BCM Other, [facility] Referring [facility] Surveillance Katy. [address] Provider: [address], [place], [place], [facility], [facility] [address]. [address] tel:[phone] [facility], , [place], [address] [place], [place], [address]. [id number], tel:[phone] [place] 1848[address]Kliaj tel:[phone] [facility] 931120 Provider: NURSE [place] [facility]. [facility] HIV, February- P[facility]te [facility] ScreeningILV [employer]. [address] Counseling 4 [facility], [facility], [place], [facility], [facility] [address]. [address] tel:[phone] , [place], [address] [place], [id number], [place] tel:[phone] [facility] BVYeast-vulvova February- [place] [facility] ginal Pavel. [address], [facility], [place], [facility], [facility] [address]. [address] tel:[phone] , [place], [address] [place], [id number], [place] tel:[phone] [facility] BCM Other, [facility] Surveillance Michaela. [address]: [place] [address], [place], PPS[facility]. [facility], [facility] [address]. [address] tel:[phone] , [place], [address] [place], [id number], [place] tel:[phone] [facility] PT, Negative February-0 [facility] [place] Sherrie. [address]: [address], [place], [facility]. [facility], [facility] [address]. [address] tel:[phone] St, [place], [address] [place], [id number], [place] tel:[phone] [facility] HIV, May-0 [facility] [place] ScreeningHIV Sherrie. [address], [place], [facility], [facility] [address]. [address] tel:[phone] St, [place], [address] [place], [id number], [place] tel:[phone] [facility] HIV, Screening Apr-2 [facility] [place] 3 [place]y. [address], [place], [facility], [facility] [address]. [address] tel:[phone] St, [place], [address] [place], [id number], [place] tel:[phone] [facility] Vaginal Apr-2 [facility] [place] DischargeSTI 3 Katy. [address] Screening [address], [place], [facility], [facility] [address]. [address] tel:[phone] St, [place], [address] [place], [id number], [place] tel:[phone] [facility] HIV, Apr-0 Louise Ruth. [facility] [place] ScreeningHIV [address] [facility] Counseling[facility], [address], [place], [place], [address]. [place] [address] tel:[phone], [place], [place], [id number], [place] tel:[phone] [facility] Screening for Apr-0 Louise Ruth. [facility] [place] other and [address], [place], [address]. [facility], [facility] conditionsSTI tel:[phone] [address], [place], [place], [id number], [place] tel:[phone] [facility] HIV, Mar-0 [facility] [place] ScreeningHIV 7- Sherrie. [address] [facility] [address], [place], [facility], [address] [address]. [address] tel:[phone] St, [place], [address] [place], [id number], [place] tel:[phone] [facility] BCM Other, Mar-0 [facility] [place] Surveillance 7- Sherrie. [address]: [address], [place], PPS[facility]. [facility], [facility] [address]. [address] tel:[phone] St, [place], [address] [place], [id number], [place] tel:[phone] [facility] Feb-2 [facility] [place] 7- Sherrie. [address], [facility], [place], [facility], [facility] [address]. [address] tel:[phone] , [place], [address] [place], [id number], [place] tel:[phone] [facility] LABORATORY EXAM Lev-0 [facility] [place] NOS 6-201 Sherrie. [address], [place], [place], [facility], [address] [address]. [address] tel:[phone] St, [place], [address] [place], [id number], [place] tel:[phone] [facility] LABORATORY EXAM Dec-0 Dani Miranda. [facility] [place] NOS 3-201 [address] , [place], [place], [address]. [facility], 620 tel:[phone], [place], [place], [id number], [place] tel:[phone] [facility] LABORATORY EXAM Nov-1 [facility] [place] NOS 3-201 [place]avel. [address], [place], [place], [facility], [address] [address]. [address] tel:[phone] St, [place], [address] [place], [id number], [place] tel:[phone] [facility] LABORATORY EXAM Jul-2 [facility] [place] NOS 1-201 Sherrie. [address], [place], [place], [facility], [address] [address]. [address] tel:[phone] , [place], [address] [place], [id number], [place] tel:[phone] [facility] LABORATORY EXAM 0 Dani Miranda. [facility] [place] NOS 8-201 [address] , [place], [place], [address]. [facility], [facility] tel:[phone] [address] [address] , [place], [place], [id number], [place] tel:[phone] [facility] LABORATORY EXAM Mar- [facility] [place] NOS 2-201 Pavel. [address] , [facility], [place], [facility], [address] [address]. [address] tel:[phone] [facility], [address] [place], [id number], [place] tel:[phone] Family History Family Member Diagnosis Age At [...] information Payers Payer name Insurance type Covered green party ID Authorization(s) Mustapha CARRANZA [facility] CI [id number] Social History Type Description Quantity Date Captured [...] Information No information Assessments Type Assessment Date No information Goals Health Concern Goal Type Priority Status Date No information Medical Equipment Description Device [place] Device Identifier Effective Dates (start - stop ) Status No information Mental Status Date Cognitive Assessment No information Health Concerns Observation Date No information Concern Status Date No information
--- OUTSIDE RECORDS SUMMARY | 2019-09-03 17:07 | XMS REPORT | Continuity of Care Document ---
:1980 Author Organization [facility] Address [address] [place] [address] Phone Care Team Providers Name Role Phone [...] for surveillance of injectable contraceptive Encntr for clinical trial coordinator exam (general) (routine) w/o abn findings Encounter [...] for surveillance of injectable contraceptive Encntr for clinical trial coordinator exam (general) (routine) w/o abn findings BCM [...] on Encounter [facility] Roxie Arrington. [facility] [place] [address], [place], [place], [address], [place], [address], [place], [place], [id number], [place] tel:[phone] [facility] Human Raphevaidis Referring [facility] [place] immunodeficienc 201 [place]y. 620 W Provider: [facility] y virus [HIV] [address], [place] counseling[place]ou [place], Raphaelidis [facility], 620 [place] [address]. , [address] screening for tel:[phone] [address], St, [place], [place] [address] [place] [address]. [id number], y virusEncntr tel:[phone] [place] screen for 558773 tel:+[phone] infections w [id number] sexl mode of transmiss [facility] Encounter for [facility]oxie Arrington. [facility] of [address] Provider: Southern injectable [address], [place], [place], [address], [place], 620 [place], 620 man [place]. [address], [place], St, [place], [place] virus [place]HIV] [place], [place] [address].Consu [id number], lting [place] Provider: tel:[phone] [place] [id number] [facility]. [facility] Encounter for Roxie Arrington. [facility] surveillance of [address] Provider: Southern injectable [address], [place], [place], [address], [place], 620 [place], 620 man [place]. [address] [place] [address], [place], St, [place], [place] virus [place]HIV] [place], counseling [address].Consu [id number], lting [place] Provider: tel:[phone] [place] [id number] [facility]. [facility] Human Louise Ruth. Referring [facility] [place] immunodeficienc 7 [address] Provider: Rubio y virus [HIV] 9 St, [place], [place], [address]. Louise, 620 [facility], 620 nter for tel:[phone] [address] [place] [address] [address], [place], St, [place], [place], [address]. [place], immunodeficienc tel:[phone], y virusEncntr 254164 [place] screen for tel:+[phone] infections w [phone] sexl mode of transmissEncoun ter for oth general cnsl and advice on contraceptionIr regular menstruation, unspecifiedPelv ic and perineal pain [facility] Human Peng- Angie Referring [facility] [place] immunodeficienc 5- Nirali. 620 Provider: Rubio y virus [HIV] [address], Nirali [place] counselingFrequ [place], [place], Angie J, 620 [facility], 620 [place] [address], [place]. [address] [place] [place] micturitionEncn tel:+[phone] St, [place], St, [place], [place] [address] [place], [address]. [place], infections w tel:[phone], sexl mode of [id number] [place] transmissCandid tel:[phone] iasis of vulva 853175 and vagina [facility] Encounter for Parete Referring [facility] [place] surveillance of 2-201 Michaela. 620 W Provider: Southern injectable [address], [place]a [place] contraceptive [place], Parete, 620 [facility], 620 [address]. [address] [place] [place] tel:+[phone] St, [place], St, [place], [address] [place], [address]. [place], tel:[phone], 284480Lnqrv [place] lting tel:[phone] Provider: 708120 [place] [facility]. [facility] DysuriaEncntr Parete Referring [facility] [place] screen for 4-201 Michaela. 620 W Provider: Southern infections w [address], Michaela [place] sexl mode of [place], Parete, 620 [place], 620 transmissAnogen [address]. [address] [place] ital (venereal) tel:[phone] St, [place], St, [place], [place] [address] [place], [address]. [place], vulvae tel:[phone], 838715 [place] tel:[phone] [facility] Encounter for Roxie Arrington. Referring [facility] [place] surveillance of 0-201 [address] Provider: [facility] injectable 9 St, [place], [place], [address], White, 620 [place], 620 [place]. [address], [place], [place], [place], [address]. [place], [id number], [place] tel:[phone] [facility] Encntr for clinical trial coordinator Sep- [facility] Referring [facility] [place] exam (general) 1- Katy. 620 W Provider: [facility] (routine) w/o [address], [place] abn [place], Raphaelidis [place], 620 findingsEncount [address]. , [address] for tel:+[address] St, [place], [place] [address] [place], [place], [place], injectable [address]. [id number], contraceptiveEn tel:+[phone] [place] counter for oth 198921 tel:+[phone] general cnsl [id number] and advice on contraception [facility] Encounter for Parete Referring [facility] [place] surveillance of 4-201 Michaela. 620 W Provider: Southern injectable [address], Michaela [place] contraceptive [place], [place], Parete, 620 [place], 620 [address]. [address] [place] tel:+[phone] St, [place], St, [place], [address] [place], [address]. [place], tel:[phone], 445305Apnzj [place] lting tel:[phone] Provider: 949359 [place] [facility]. [facility] Encounter for Jul- Roxie Arrington. Referring [facility] [place] surveillance of 5-201 [address] Provider: Southern injectable [address] St, [place], [place], [address], White, 620 [place], 620 [place]. [address], [place], [place], [place], [address]. [place], [id number], [place] tel:[phone] [facility] Human Darnell Referring [facility] [place] immunodeficienc 0-201 Katy. 620 W Provider: [facility] y virus [HIV] [address], [place] counselingEncou [place], [facility], 620 [place] [address]. , [address] screening for tel:[phone] [address], St, [place], human [address] [place], immunodef[place]c [address]. [id number], y virus tel:+[phone] [place] [phone] tel:[phone] lting [phone] Provider: [place]SE [place] [facility]. [facility] Encounter for Darnell Referring [facility] [place] surveillance of Katy. 620 W Provider: [facility] injectable [address], [place] contraceptive [place], [facility], 620 [address]. , [address] tel:+[phone] [address], St, [place], [address] [place], [address]. [id number], tel:+[phone] [place] 758153 tel:[phone] [facility] Frequency of Hemmer Referring [facility] [place] m[facility]uritionUrge [facility] Provider: [facility] ncy of 8 Sueane. 620 Sueane [place] urinationEncntr [address], Hemmer [facility], 620 screen for [place], [facility], [address] [place] w [address], [place], sexl mode of tel:+[phone] [address], [place], transmiss [address] [place], [place], [id number], [address]. [place] tel:+[phone] tel:[phone] [facility] Encntr screen Darnell Referring [facility] [place] for infections 1- Katy. 620 W Provider: [facility] w sexl mode of [address], [place] transmissTinea [place], [facility], 620 cruris [address]. , [address] tel:+[phone] [address], St, [place], [address] [place], [address]. [id number], tel:+[phone] [place] 782788 tel:[phone] [facility] Encounter for Roxie Arrington. Referring [facility] [place] surveillance of [address] Provider: Southern injectable 8 St, [place], [place], [address], White, 620 [place], 620 [place]. [address], [place], St, [place], [address].Consu [id number], lting [place] Provider: tel:[phone] [place] 204177 [facility]. [facility] Encounter for Dec-0 Roxie Arrington. Referring [facility] [place] surveillance of [address] Provider: Southern injectable [address] St, [place], [place], [address], White, 620 [place], 620 [place]. [address], [place], St, [place], [address].Consu [id number], lting [place] Provider: tel:[phone] [place] 226231 [facility]. [facility] Encounter for Kornblum [facility] surveillance of Korin. 620 W Provider: Southern injectable [address], Korin [place] contraceptive [place], Kornblum M, [place], 620 [address]. [address] tel:+[phone] [address], St, [place], [address] [place], [address]. [id number], tel:+[phone] [place] 232411Wvdkg tel:[phone] lting [phone] Provider: [place]SE [place] [facility]. [facility] Human Jul- Roxie Arrington. Referring [facility] [place] immunodeficienc 0- [address] Provider: [facility] y virus [HIV] 7 St, [place], [place], [address], White, 620 [place], 620 nter for [place]. [address] [place] [address] surveillance of St, [place], St, [place], injectable [place], [place], contraceptiveEn [address].Consu [id number], counter for lting [place] screening for Provider: tel:[phone] [place] 232878 immunodeficienc [facility]. y virus Planned [facility] Human Dani Miranda. Referring [facility] [place] immunodeficienc [address] Provider: [facility] y virus [HIV] 7 St, [place], [place], [address]. Angella Boone, 620 nter for tel:[phone] [place] [address] St, [place], injectable [place], [place], contraceptive [address]. [id number], tel:[phone] US 700449 tel:[phone] [facility] Encntr screen Apr- Roxie Arrington. [facility]ing [facility] for infections - [address] Provider: [facility] w sexl mode of 7 St, [place], [place], [address], [facility]. [facility], [address], [place], [place], [id number], [place] tel:[phone] [facility] Human Apr- Borglum [facility] [place] immunodeficienc 7- Mohini. 620 Southern y virus [HIV] [address], [place] counselingEncou [place], [facility], 620 [place] [address], [place]. [address] screening for tel:[phone] St, [place], [place] [address] [place], immunodeficienc [id number], y virusEncntr [place] screen for tel:[phone] infections w 154834 sexl mode of transmissEncoun ter for oth general cnsl and advice on contraceptionCa ndidiasis of vulva and vaginaPatient's noncompliance w oth medical treatment and regimen Planned [facility] Encounter for Peng-0 Raphaelidis [facility] surveillance of 2-201 Katy. 620 W Provider: [facility] injectable [address], [place] contraceptive [place], Angella Boone, 620 [address]. [address] tel:[phone], St, [place], [address] [place], [address]. [id number], tel:[phone] [place] 319584 tel:[phone] [facility] Encounter for Dec-2 White Nury. Referring [facility] [place] surveillance of [address] Provider: Southern injectable 7 [address], [place], [place], [address], Lori Anaya [facility], 620 [place]. [address], St, [place], [place], [address]. [id number], tel:[phone] [place] 265333Aaygx tel:[phone] lting [phone] Provider: [place]SE [place] [facility]. [facility] Unspecified Dec- Raphaelidis [facility] [place] abdominal 7- Katy. 620 W Southern painCandidiasis [address], [place] of vulva and [place], [place], [facility], 620 vagina [address]. [address] [place] [address] tel:[phone] St, [place], [address] [place], [id number], [place] tel:[phone] [facility] Encounter for Borglum Referring [facility] [place] surveillance of Mohini. 620 Provider: Southern injectable [address], [place] contraceptiveEn [place], [place], Lori Anaya [facility], 620 [place] [address], [place]. [address] test, tel:[phone], St, [place], result negative [address] [place], [address]. [id number], tel:[phone] [place] 587[address]Kpuha tel:[phone] lting [phone] Provider: [place]SE [place] [facility]. [facility] Candidiasis of Guggino [facility] [place] vulva and Brittany. [facility] vaginaEncounter 6 [address] [place] for oth general St, [place], [place], 620 [place], [address], [address] on [place]. [address], [place], contraceptionRa tel:[phone] [place], sh and other [id number], nonspecific [place] skin eruption tel:[phone] [facility] Frequency of Nov-2 White Nury. [facility] [place] micturitionNoni [address] nflammatory [address], [place], [place], [address], [place], 620 vagina, [place]. [address], [place], unter for [place], surveillance of [id number], injectable [place] contraceptiveEn tel:[phone] cntr screen for 022024 infections w sexl mode of transmiss [facility] Encounter for Borglum Referring [facility] [place] surveillance of [place]. 620 Provider: [facility] injectable [address], [place] contrace[place], Angella Boone, 620 [address], [place]. [address] tel:[phone], St, [place], [address] [place], [address]. [id number], tel:[phone] [place] 628596Ngfsw tel:[phone] lting [phone] Provider: NURSE [place] MADY [facility]. [facility] Encounter for Borglum [facility] [place] surveillance of [place]. Southern injectable [address], [place] contraceptivePe [place], [facility], 620 rsonal history [address], [place]. [address] [place] of oth diseases tel:[phone] St, [place], of the female [address] [place], genital [id number], tractHerpesvira [place] l infection of tel:[phone] urogenital 365501 system, unspecifiedObes ity, unspecifiedToba senior account director use [facility] Encounter for Borglum [facility] surveillance of [place]. Provider: [facility] injectable [address], [place] contrace[place], [place], Angella Boone, [facility] [address], [place]. [address] tel:+[phone] [address], St, [place], [address] [place], [address]. [id number], tel:[phone] [place] 926092Vufct tel:[phone] lting [phone] Provider: NURSE [place] MADY [facility]. [facility] Encounter for Borglum Consulting [facility] [place] test, [place]. [facility] Provider: [facility] result negative [address], NURSE [place] MADY [place], [facility]PS[facility]. [place] [address], [place]. [address] [place] tel:[phone] St, [place], [address] [place], [id number], [place] tel:[phone] [facility] Encounter for Roxie Arrington. Consulting [facility] test, 2- [address] Provider: [facility] result negative 6 [facility], [place], [place], [address], PPS[facility]. [facility], [facility] [place]. [address], [place], [place], [id number], [place] tel:[phone] [facility] Candidiasis of Peng-2 Hemmer [facility] [place] vulva and 4 [place] vagina 6 Sueane. 620 [place] [address] , [facility], [address] [place] [address], [place], [address] [address]. [facility], [place], tel:[phone] [place], [id number], [place] tel:[phone] [facility] Encntr screen Mar- Roxie Arrington. Referring [facility] [place] for infections 3 [address] Provider: Southern w sexl mode of 6 [facility], [place], [place], [address], Lori R, [facility], [facility] ter for US. [address] [place] surveillance [address], , [place], injectable [place], [place], [place]ptive [address]. [id number], tel:[phone] [place] 091436Xjood tel:[phone] lting [phone] Provider: N[place]SE [place] [facility]. [facility] Candidiasis of Peng-0 Hemmer [facility] [place] vulva and 6 [place] vagina 6 Sueane. 620 [place] [address] , [facility], [address] [place] [address], [place], [address], [place], tel:[phone] [place], [id number], [place] tel:[phone] [facility] Candidiasis of February- Roxie Arrington. [facility] [place] vulva and 0-201 [address] [place] vaginaEncounter 6 , [place], [place], [address], [facility], [facility] cnsl and advice [place]. [address] [place] [address] on [address], [place], contraceptionEn [place], counter for [id number], surveillance of [place] injectable tel:[phone] contraceptive [phone] [facility] Human Roxie Arrington. Consulting [facility] [place] immunodeficienc [address] Provider: [facility] y virus [HIV] 6 St, [place], [place], [address], PPS[facility]. [facility], 620 nter for [place]. [address] [place] screening for St, [place], human [place], immunodeficienc [id number], y virus [place] tel:[phone] [facility] Candidiasis of Dec-3 Ottoson [facility] [place] vulva and Pavel. 620 Southern vaginaAnogenita [address], [place] l (venereal) [place], [facility], 620 warts [address]. [address] [place] tel:[phone] St, [place], [address] [place], [id number], [place] tel:[phone] [facility] Frequency of Dec- Parete [facility] [place] micturitionCand Michaela. 620 W [place] idiasis of [address], [place] vulva and [place], [facility], 620 vaginaAnogenita [address]. [address] [place] l (venereal) tel:[phone] St, [place], warts [address] [place], [id number], [place] tel:[phone] [facility] Anogenital Dani Miranda. [facility] [place] (venereal) [address] [place] wartsCandidiasi 6 [address], [place], [place], [address]. [facility], 620 vagina tel:[phone], [place], [place], [id number], [place] tel:[phone] [facility] Oth cond assoc Dec- Kornblum [facility] [place] w female - Korin. 620 W [place] genital organs [address], [place] and menstrual [place], [place], [facility], 620 cycle [address]. [address] [place] tel:[phone] St, [place], [address] [place], [id number], [place] tel:[phone] [facility] Encounter for Kornblum [facility] [place] surveillance of Korin. 620 W [place] injectable [address], [place] contraceptiveNo [place], [place], [place], 620 ninflammatory [address]. [address] [place] disorder of tel:+137291 St, [place], vagina, [address] [place], unspecified [id number], [place] tel:[phone] [facility] Anogenital Dec- Raphmeena [facility] [place] (venereal) 8- Katy. 620 W Southern wartsCandidiasi [address], [place] s of vulva and [facility], [facility] vagina [address]. [address] [place] tel:+[phone] St, [place], [address] [place], [id number], [place] tel:[phone] [facility] Encounter for Parete [facility] [place] test, 2. 620 W Southern result [address], [place] negativeFrequen [place], [place], [facility], 620 [place] [address]. [address] [place] micturitionAnog tel:[phone] St, [place], enital [address] [place], (venereal) [id number], wartsCandidiasi [place] s of vulva and tel:[phone] vaginaEncntr 312472 screen for infections w sexl mode of transmiss Planned [facility] Encounter for Eselaya Mason. Referring [facility] [place] surveillance of 620 W. Provider: [facility] injectable [address] Isabella Mulligan [place] contraceptive [place], [place], C, 620 W. [facility], [facility] [address] [place] tel:[phone] [place], [place], St, [place], [address]. [place], tel:[phone], 817289Wqlhq [place] lting tel:[phone] Provider: [id number] [place] [facility]. [facility] Encntr for clinical trial coordinator Jul- Raphmeena [facility] [place] exam (general) 5- Katy. 620 W Southern (routine) w/o [address], [place] abn findings [place], [facility], [facility] [address]. [address] [place] tel:+[phone] St, [place], [address] [place], [id number], [place] tel:[phone] Planned [facility] BCM Other, Sep-0 Avidano [facility] Surveillance 2-201 Sherrie. 620 W Provider: Southern [address], [place], [facility], 620 [address]. [address] [place] tel:[phone] St, [place], [address] [place], [address]. [id number], tel:[phone] [place] 641365 tel:[phone] [facility] STI Screening May- [facility] [place] 5-201 Sherrie. 620 W Southern [address], [place], [place], [facility], 620 [address]. [address] [place] tel:[phone] St, [place], [address] [place], [id number], [place] tel:[phone] [facility] STI Hemmer [facility] [place] ScreeningYeast- 3 [place] vulvovaginal 5 Sueane. [address], [facility], 620 [place], [place], [address] [place], [place], tel:[phone] [place], [id number], [place] tel:[phone] [facility] PT, Negative Peng- Alejandro [facility] 3 Oni. 135 Provider: Southern [address], Oni [place], [place], [facility], 620 [address], [place]. [address] [place] tel:[phone] St, St, [place], [address] [place], [address]. [id number], tel:[phone] [place] 199384Dhnfo tel:[phone] lting [phone] Provider: NURSE [place] [facility]. [facility] BCM Other, [facility] SurveillancePel 4201 Sherrie. 620 W Provider: Southern lorena Pain - [address], Sherrie [place] NOSYeast-vulvov [place], [facility], [facility], 620 aginal [address]. [address] [place] tel:[phone], St, [place], [address] [place], [address]. [id number], tel:+[phone] [place] 115018 tel:[phone] Planned [facility] BCM Other, Dec- Louise Ruth. Referring Parenthood [facility] - 620 [address] [place] Provider: [facility] Screening [address] St, [place], [place], [address]. Louise, 620 [facility], 620 tel:[phone] [address] [place] [address] [place] [address], [place], [place], [place], [address]. [place], tel:[phone], 511359 [place] tel:[phone] Planned [facility] BCM Other, Avidano Referring [facility] [place] Surveillance 2- Sherrie. 620 W Provider: Southern [address], Sherrie [place], [place], [facility], [facility], 620 [address]. [address] W [address] [place] tel:+[phone] [address], St, [place], [address] [place], [address]. [id number], tel:[phone] [place] 837651Avehw tel:[phone] lting 750284 Provider: NURSE [place] [facility]. [facility] Urinary Sep-2 Parete Referring Parenthood [facility] Michaela. 620 W Provider: [facility] Other, [address], Michaela [place] Surveillance [place], Parete, 620 [facility], [facility] [address]. [address] [place] [address] [place] tel:+[phone] St, [place], St, [place], [address] [place], [address]. [place], tel:[phone], 950706 [place] tel:[phone] Planned [facility] Apr-3 Lori [facility] [place] 0-201 Paola. 620 W Southern [address], [place], [facility], [facility] [address]. [address] [place] tel:+[phone] St, [place], [address] [place], [id number], [place] tel:[phone] Planned [facility] Yeast-vulvovagi Apr-2 Avidano [facility] [place] nal 3-201 Sherrie. 620 W Southern [address], [place], [facility], [facility] [address]. [address] [place] tel:+[phone] , [place], [address] [place], [id number], [place] tel:[phone] [facility] HIV, [facility] ScreeningNCV Katy. 620 W [place] Counseling [address], [facility], [place], [facility], 620 [address]. [address] [place] tel:[phone] , [place], [address] [place], [id number], [place] tel:[phone] Planned [facility] BCM Other, [facility] Referring [facility] Surveillance Katy. 620 W Provider: [address], [place], [place], [facility], [facility] [address]. [address] [place] tel:[phone] [facility], , [place], [address] [place], [address]. [id number], tel:[phone] [place] 344234Sgisx tel:[phone] [facility] [phone] Provider: NURSE [place] [facility]. [facility] HIV, February- Parete [facility] ScreeningNCV [employer]. [address] [place] Counseling 4 [facility], [facility], [place], [facility], [facility] [address]. [address] [place] tel:[phone] , [place], [address] [place], [id number], [place] tel:[phone] Planned [facility] BVYeast-vulvova February- Ottoson [facility] ginal Pavel. [address] Southern [address], [facility], [place], [facility], [facility] [address]. [address] [place] tel:[phone] , [place], [address] [place], [id number], [place] tel:[phone] [facility] Other, [employer] [facility] Surveillance Michaela. [address]: [place] [address], N[place]SE [place], [place], [facility]. [facility], [facility] [address]. [address] [place] tel:[phone] , [place], [address] [place], [id number], [place] tel:[phone] [facility] PT, Negative February-0 [facility] [place] Sherrie. [address] Provider: [address], NURSE [place], [facility]. [facility], [facility] [address]. [address] [place] tel:[phone] St, [place], [address] [place], [id number], [place] tel:[phone] [facility] HIV, May-0 [facility] [place] ScreeningHIV Sherrie. [address] [facility] [address], [place], [facility], [facility] [address]. [place] tel:[phone] St, [place], [address] [place], [id number], [place] tel:[phone] [facility] HIV, Screening Apr-2 [facility] [place] 3 [place]. [address], [place], [facility], [facility] [address]. [place] tel:[phone] St, [place], [address] [place], [id number], [place] tel:[phone] [facility] Vaginal Apr-2 [facility] [place] DischargeSTI 3 [place]. [address] Screening [address], [place], [facility], [facility] [address]. [address] [place] tel:[phone] St, [place], [address] [place], [id number], [place] tel:[phone] [facility] HIV, Apr-0 Louise Ruth. [facility] [place] [facility]eningHIV [address] [facility], [address], [place], [address]. [place] [address] tel:[phone], [place], [place], [id number], [place] tel:[phone] [facility] Screening for Apr-0 Louise Ruth. [facility] [place] other and [address] unspecified [address], [place], [address]. [facility], [facility] conditionsSTI tel:[phone] [address] [place] [address], [place], [place], [id number], [place] tel:[phone] [facility] HIV, Mar-0 [facility] [place] ScreeningHIV 7- Sherrie. [address] [facility] [address], [place], [facility], [address] [address]. [address] [place] tel:[phone] St, [place], [address] [place], [id number], [place] tel:[phone] [facility] Other, Mar-0 [facility] [place] Surveillance 7- Sherrie. [address] Provider: [address], NURSE [place], [facility]. [facility], [facility] [address]. [place] tel:[phone] St, [place], [address] [place], [id number], [place] tel:[phone] [facility] Feb-2 [facility] [place] 7- Sherrie. [address], [facility], [place], [facility], [facility] [address]. [address] [place] tel:[phone] , [place], [address] [place], [id number], [place] tel:[phone] [facility] LABORATORY EXAM Lev-0 [facility] [place] NOS 6-201 Sherrie. [address], [place], [place], [facility], [address] [address]. [address] [place] tel:[phone] St, [place], [address] [place], [id number], [place] tel:[phone] [facility] LABORATORY EXAM Dec-0 Dani Miranda. [facility] [place] NOS 3-201 [address] , [place], [place], [address]. [facility], 620 tel:[phone], [place], [place], [id number], [place] tel:[phone] [facility] LABORATORY EXAM Nov-1 [facility] [place] NOS 3-201 [place]. [address], [place], [place], [facility], [address] [address]. [address] [place] tel:[phone] St, [place], [address] [place], [id number], [place] tel:[phone] [facility] LABORAT[facility] EXAM Jul-2 [facility] [place] NOS 1-201 Sherrie. [address], [place], [place], [facility], [address] [address]. [address] [place] tel:[phone] , [place], [address] [place], [id number], [place] tel:[phone] [facility] LABORATORY EXAM 0 Dani Miranda. [facility] [place] NOS 8-201 [address] , [place], [place], [address]. [facility], [facility] tel:[phone] [address] [address] , [place], [place], [id number], [place] tel:[phone] [facility] LABORATORY EXAM [facility] [place] NOS 2-201 [place]. [address] , [facility], [place], [facility], [address] [address]. [address] [place] tel:[phone] [facility], [place], [address] [place], [id number], [place] tel:[phone] Family History Family Member Diagnosis Age At [...] type Covered republican ID Authorization(s) Mustapha CARRANZA [facility] CI [id number] Social History Type Description Quantity Date Captured [...] Date No information Medical Equipment Description Device [place] Device Identifier Effective Dates (start - stop ) Status No information Mental Status Date Cognitive Assessment No information Health Concerns Observation Date No information Concern Status Date No information
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
[2019-09-03] MEDS ORDERED: Ibuprofen TAB* 600 MG PO ONE (19:04)
[2019-09-03 19:26] VITALS: BP 139/98
== END 2019-09-03 19:14 | disposition home or self-care (01) ==
LOC: ED 16:29
DX: S99.921A Unspecified injury of right foot, initial encounter (principal); V09.9XXA Pedestrian injured in unspecified transport accident, initial encounter; Y92.9 Unspecified place or not applicable; Z88.1 Allergy status to other antibiotic agents; Z88.2 Allergy status to sulfonamides; E11.9 Type 2 diabetes mellitus without complications; F17.210 Nicotine dependence, cigarettes, uncomplicated
CPT/HCPCS: 99282; A9270-GY